=== PATIENT | male | born 1940 | race Caucasian/White ===

== ENCOUNTER 2017-06-25 15:12 | Emergency (ER) | payer OTHER ==
--- NOTE | 2017-06-25 16:45 | RAD REPORT ---
EXAM DESCRIPTION: Lumbar Spine 3 Views CLINICAL HISTORY: Fall, back pain, radiculopathy. COMPARISON: None. FINDINGS: Mild wedge compression deformity affects the L1 vertebral body, age undetermined. Disc thi nning with small endplate osteophytes are noted at L2-3 and L3-4. No spondylolysis or spondylolisthes is. Vascular calcifications are seen. IMPRESSION: Mild L1 wedge compression fracture, age undetermined. Consider followup MR lumbar spine for further assessment of the acuity of this fracture.
--- NOTE | 2017-06-25 17:14 | EDPHYS ---
Physician Documentation [facility] Name: Rigo Lam Age: 77 yrs Sex: Male : 1940 Arrival Date: 06/25/2017 Time: 15:21 Bed 10 Private MD: ED Physician Andrea Connors HPI: 06/25 17:41 This 77 yrs old Male presents to ER via Ambulatory with complaints of Fall snw Injury, Back Pain. 17:41 Details of fall: The patient fell from an upright position, while standing. Onset: The snw symptoms/episode began/occurred suddenly, today. Associated injuries: The patient sustained injury to the low back, pain. Severity of symptoms: At their worst the symptoms were mild, moderate. It is unknown whether or not the patient has had similar symptoms in the past. The patient has been recently seen by a physician: the patient's primary care provider, Dr. Bowman with different complaint(s), and apparently was diagnosed with well exam/follow up. Historical: - Allergies: 16:01 Sulfa (Sulfonamide Antibiotics); hb - Home Meds: 16:01 Actos 30 mg Oral tab 1 tab once daily [Active]; Tylenol #3 Oral [Active]; probenecid hb 500 mg Oral tab [Active]; aspirin 81 mg Oral TbEC 1 tab once daily [Active]; meclizine 25 mg Oral tab 1 tab [Active]; loratadine 10 mg oral TbDL 1 tab once daily [Active]; - PMHx: 16:01 Diabetes - NIDDM; hb - PSHx: 16:01 Appendectomy; Cholecystectomy; hb - Immunization history:: Adult Immunizations up to date. - Social history:: Smoking status: Patient/guardian denies using tobacco. ROS: 17:40 Constitutional: Negative for fever, chills, and weight loss, Eyes: Negative for injury, snw pain, redness, and discharge, ENT: Negative for injury, pain, and discharge, Neck: Negative for injury, pain, and swelling, Cardiovascular: Negative for chest pain, palpitations, and edema, Respiratory: Negative for shortness of breath, cough, wheezing, and pleuritic chest pain, Abdomen/GI: Negative for abdominal pain, nausea, vomiting, diarrhea, and constipation, : Negative for injury, bleeding, discharge, and swelling, MS/Extremity: Negative for injury and deformity, Skin: Negative for injury, rash, and discoloration, Neuro: Negative for headache, weakness, numbness, tingling, and seizure. 17:40 Back: Positive for injury or acute deformity, pain with movement, of the lumbar area. Exam: 17:16 Head/Face: Normocephalic, atraumatic. Eyes: Pupils equal round and reactive to light, snw extra-ocular motions intact. Lids and lashes normal. Conjunctiva and sclera are non-icteric and not injected. Cornea within normal limits. Periorbital areas with no swelling, redness, or edema. ENT: Nares patent. No nasal discharge, no septal abnormalities noted. Tympanic membranes are normal and external auditory canals are clear. Oropharynx with no redness, swelling, or masses, exudates, or evidence of obstruction, uvula midline. Mucous membranes moist. Neck: Trachea midline, no thyromegaly or masses palpated, and no cervical lymphadenopathy. Supple, full range of motion without nuchal rigidity, or vertebral point tenderness. No Meningismus. Chest/axilla: Normal chest wall appearance and motion. Nontender with no deformity. No lesions are appreciated. Cardiovascular: Regular rate and rhythm with a normal S1 and S2. No gallops, murmurs, or rubs. Normal PMI, no JVD. No pulse deficits. Respiratory: Lungs have equal breath sounds bilaterally, clear to auscultation and percussion. No rales, rhonchi or wheezes noted. No increased work of breathing, no retractions or nasal flaring. Abdomen/GI: Soft, non-tender, with normal bowel sounds. No distension or tympany. No guarding or rebound. No evidence of tenderness throughout. Skin: Warm, dry with normal turgor. Normal color with no rashes, no lesions, and no evidence of cellulitis. MS/ Extremity: Pulses equal, no cyanosis. Neurovascular intact. Full, normal range of motion. Neuro: Awake and alert, GCS 15, oriented to person, place, time, and situation. Cranial nerves II-XII grossly intact. Motor strength 5/5 in all extremities. Sensory grossly intact. Cerebellar exam normal. Normal gait. 17:16 Constitutional: The patient appears alert, awake, difficulty with mobility and speech - hx of CP 17:16 Back: pain, that is mild, of the lumbar area, ROM is normal, scoliosis vertebral tenderness, is appreciated at L1, L2 and L3, muscle spasm, is not present. Vital Signs: 16:01 BP 101 / 62; Pulse 95; Resp 20; Temp 97.9; Pulse Ox 97% ; Pain 10/10; hb 17:33 BP 132 / 78; Pulse 89; Resp 17; Pulse Ox 97% on R/A; rk2 MDM: 16:03 Patient medically screened. snw 17:42 Data reviewed: vital signs, nurses notes. Data interpreted: Pulse oximetry: on room air snw is 97 %. Interpretation: normal. Counseling: I had a detailed discussion with the patient and/or guardian regarding: the historical points, exam findings, and any diagnostic results supporting the discharge/admit diagnosis, radiology results, the need for outpatient follow up, to return to the emergency department if symptoms worsen or persist or if there are any questions or concerns that arise at home. Special discussion: Based on the history and exam findings, there is no indication for further emergent testing or inpatient evaluation. I discussed with the patient/guardian the need to see the primary care provider for further evaluation of the symptoms. 06/25 16:04 Order name: Lumbar Spine (3 Views) XRAY; Complete Time: 16:49 snw Administered Medications: No medications were administered Disposition: 06/26 08:54 Co-signature as Attending Physician, Andrea Connors MD I agree with the assessment and arminda plan of care. Disposition: 06/25/17 17:13 Discharged to Home. Impression: Fall on same level, unspecified, Wedge compression fracture of first lumbar vertebra. - Condition is Stable. - Discharge Instructions: Back, Compression Fracture, Fall Prevention and Home Safety. - Prescriptions for Tylenol- Codeine #3 300-30 mg Oral Tablet - take 1 tablet by ORAL route every 6 hours As needed; 15 tablet. - Medication Reconciliation Form, Thank You Letter, Antibiotic Education, Prescription Opioid Use form. - Follow up: Private Physician; When: 2 - 3 days; Reason: Recheck today's complaints, Continuance of care, Re-evaluation by your physician. Follow up: Emergency Department; When: As needed; Reason: Worsening of condition. Signatures: Dispatcher [employer] Andrea Ricci MD MD cha Therrien, Shelly, ADMINISTRATIVE AND PROGRAM SPECIALIST-C ADMINISTRATIVE AND PROGRAM SPECIALIST-Csnw Suma Freitas RN RN Mary Julian RN RN rk2 Corrections: (The following items were deleted from the chart) 06/25 17:35 17:13 06/25/2017 17:13 Discharged to Home. Impression: Fall on same level, unspecified; rk2 Wedge compression fracture of first lumbar vertebra. Condition is Stable. Forms are Medication Reconciliation Form, Thank You Letter, Antibiotic Education, Prescription Opioid Use. Follow up: Private Physician; When: 2 - 3 days; Reason: Recheck today's complaints, Continuance of care, Re-evaluation by your physician. Follow up: Emergency Department; When: As needed; Reason: Worsening of condition. snw
--- NOTE | 2017-06-25 17:14 | ER ---
Nurse's Notes [facility] Name: Rigo Lam Age: 77 yrs Sex: Male : 1940 Arrival Date: 06/25/2017 Time: 15:21 Bed 10 Private MD: Diagnosis: Fall on same level, unspecified;Wedge compression fracture of first lumbar vertebra Presentation: 06/25 15:57 Presenting complaint: Low back pain after mechanical fall from standing this morning. hb reports he fell onto buttocks, denies other injuries. Negative LOC. Transition of care: patient was not received from another setting of care. Onset of symptoms was June 25, 2017. Initial Sepsis Screen: Does the patient meet any 2 criteria? No. Patient's initial sepsis screen is negative. Does the patient have a suspected source of infection? No. Patient's initial sepsis screen is negative. Care prior to arrival: Medication(s) given: Tylenol #3 at 1400. 15:57 Method Of Arrival: Ambulatory 15:57 Acuity: ARMEN 4 hb Triage Assessment: 16:42 General: Appears in no apparent distress. well nourished, Behavior is calm, rk2 cooperative. Pain: Complains of pain in back. Historical: - Allergies: 16:01 Sulfa (Sulfonamide Antibiotics); hb - Home Meds: 16:01 Actos 30 mg Oral tab 1 tab once daily [Active]; Tylenol #3 Oral [Active]; probenecid hb 500 mg Oral tab [Active]; aspirin 81 mg Oral TbEC 1 tab once daily [Active]; meclizine 25 mg Oral tab 1 tab [Active]; loratadine 10 mg oral TbDL 1 tab once daily [Active]; - PMHx: 16:01 Diabetes - NIDDM; hb - PSHx: 16:01 Appendectomy; Cholecystectomy; hb - Immunization history:: Adult Immunizations up to date. - Social history:: Smoking status: Patient/guardian denies using tobacco. Screenin:42 Abuse screen: Denies threats or abuse. Nutritional screening: No deficits noted. rk2 Tuberculosis screening: No symptoms or risk factors identified. Fall Risk Fall in past 12 months (25 points). Assessment: 16:40 Reassessment: Pt. returned from radiology. rk2 16:44 Pain: Complains of pain in back. Neuro: Level of Consciousness is alert, obeys rk2 commands, Oriented to person, place, time, situation. Respiratory: Airway is patent Respiratory effort is even, unlabored, Respiratory pattern is regular, symmetrical. Derm: Skin is pink, warm \T\ dry. Injury Description: No obvious trauma or bruising noted to back. Vital Signs: 16:01 BP 101 / 62; Pulse 95; Resp 20; Temp 97.9; Pulse Ox 97% ; Pain 10/10; hb 17:33 BP 132 / 78; Pulse 89; Resp 17; Pulse Ox 97% on R/A; rk2 ED Course: 15:21 Patient arrived in ED. al2 16:00 Triage completed. hb 16:01 Arm band placed on right wrist. hb 16:03 Ewelina Fuentes FNP-C is [facility]. snw 16:03 Andrea Connors MD is Attending Physician. snw 16:09 Mary Julian, VICKIE is Primary Nurse. rk2 16:25 Patient moved to radiology via wheelchair. 1 16:29 Lumbar Spine (3 Views) XRAY Sent. rk2 16:35 Lumbar Spine (3 Views) XRAY In Process Unspecified. EDMS 16:42 Patient has correct armband on for positive identification. Bed in low position. Call rk2 light in reach. Adult w/ patient. 17:34 No provider procedures requiring assistance completed. Patient did not have IV access rk2 during this emergency room visit. Administered Medications: No medications were administered Outcome: 17:13 Discharge ordered by MD. snw 17:34 Discharged to home via wheelchair. rk2 17:34 Condition: good 17:34 Discharge instructions given to patient, Prescriptions given X 1. 17:35 Patient left the ED. rk2 Signatures: Dispatcher [employer] EDMS Ewelina Fuentes FNP-C CYLINDER HONER-Csnw Carole Connolly 1 Suma Freitas, RN Franci Khoury al2 Mary Julian, VICKIE RN rk2
[2017-06-25 17:39] VITALS: TEMP 97.9; O2SAT 97
[2017-06-25 17:40] VITALS: BP 132/78
== END 2017-06-25 17:35 | disposition home or self-care (01) ==
LOC: ER 15:12
DX: S32.010A Wedge compression fracture of first lumbar vertebra, initial encounter for closed fracture (principal); W18.30XA Fall on same level, unspecified, initial encounter; Y93.9 Activity, unspecified; Y92.9 Unspecified place or not applicable; Z79.82 Long term (current) use of aspirin; Z88.2 Allergy status to sulfonamides; E11.9 Type 2 diabetes mellitus without complications
CPT/HCPCS: 72100; 99283

== ENCOUNTER 2017-10-20 10:44 | Inpatient (IN) | payer OTHER ==
[2017-10-20] MEDS ORDERED: LEVALBUTEROL 1.25 MG/3 ML NEB ONE ×2 (11:37→12:57)
[2017-10-20] MEDS ORDERED: METHYLPREDNISOLONE 125 MG INJ ONE (11:37)
[2017-10-20] MEDS ORDERED: IPRATROPIUM BROM 0.5MG/2.5ML ONE (11:37)
[2017-10-20 11:58] LABS: Absolute Monocytes 0.8 K/uL (0.1-1.3); Basophils % 0.7 % (0-1.3); Eosinophils % 0.9 % (0-4.4); Lymphocytes % 9.3 % (15.3-44.8); MCH 31.7 pg (27.0-35.0); MCV 92.2 fL (80-100); MPV 8.2 fL (7.6-11.3); Monocytes % 7.2 % (3.3-12.3)
[2017-10-20 12:12] LABS: Potassium 4.5 mmol/L (3.5-5.1)
--- NOTE | 2017-10-20 12:18 | RAD REPORT ---
EXAM DESCRIPTION: RAD - Chest Single View - 10/20/2017 12:09 pm CLINICAL HISTORY: Cough;Congestion Chest pain. COMPARISON: Chest Single View dated 06/09/2016; Chest Single View dated 06/06/2016; Chest Single View dated 06/04/2016; Chest Single View dated 06/02/2016 FINDINGS: Portable technique limits examination quality. Emphysematous changes are present with mild increased lung markings in both bases probably representi ng interstitial pneumonitis. The heart is normal in size. No displaced fractures. IMPRESSION: COPD with increased lung markings in both bases, greater on the right, likely representi ng interstitial pneumonia.
--- NOTE | 2017-10-20 14:21 | ER ---
Nurse's Notes [facility] Name: Rigo Lam Age: 77 yrs Sex: Male : 1940 Arrival Date: 10/20/2017 Time: 10:47 Bed 16 Private MD: Reji Bowman Diagnosis: Pneumonia, unspecified organism Presentation: 10/20 11:21 Presenting complaint: cough x 4 days, sinus congestion, worse today with wheezing. sr5 Transition of care: patient was not received from another setting of care. Onset of symptoms was October 16, 2017. Risk Assessment: Do you want to hurt yourself or someone else? Patient reports no desire to harm self or others. Initial Sepsis Screen: Does the patient meet any 2 criteria? No. Patient's initial sepsis screen is negative. Does the patient have a suspected source of infection? No. Patient's initial sepsis screen is negative. Care prior to arrival: None. 11:21 Method Of Arrival: Wheelchair sr5 11:21 Acuity: ARMEN 3 sr5 Triage Assessment: 11:23 General: Appears in no apparent distress. Behavior is calm, cooperative. Pain: Denies sr5 pain. Neuro: Level of Consciousness is awake, alert, obeys commands. Cardiovascular: Patient's skin is warm and dry. Respiratory: Respiratory effort is even, unlabored, Respiratory pattern is regular, symmetrical, Breath sounds with wheezes. Historical: - Allergies: 11:23 Sulfa (Sulfonamide Antibiotics); sr5 - Home Meds: 11:10 Actos 30 mg Oral tab 1 tab once daily [Active]; aspirin 81 mg Oral TbEC 1 tab once rb1 daily [Active]; loratadine 10 mg Oral TbDL 1 tab once daily [Active]; meclizine 25 mg Oral tab 1 tab [Active]; Metformin Oral [Active]; probenecid 500 mg Oral tab [Active]; Tylenol #3 Oral [Active]; - PMHx: 11:23 Diabetes - NIDDM; sr5 11:10 Cerebral Palsy; rb1 - PSHx: 11:23 Appendectomy; Cholecystectomy; sr5 - Immunization history:: Adult Immunizations up to date. - Social history:: Smoking status: Patient/guardian denies using tobacco. - Ebola Screening: : Patient negative for fever greater than or equal to 101.5 degrees Fahrenheit, and additional compatible Ebola Virus Disease symptoms. Screenin:10 Abuse screen: Denies threats or abuse. Nutritional screening: No deficits noted. rb1 Tuberculosis screening: No symptoms or risk factors identified. Fall Risk No fall in past 12 months (0 pts). Secondary diagnosis (15 points) impaired mobility, IV access (20 points). Ambulatory Aid- Crutches/Cane/Walker (15 pts). Gait- Impaired (20 pts.). Mental Status- Oriented to own ability (0 pts). Total Pritchard Fall Scale indicates High Risk Score (45 or more points). Fall prevention measures have been instituted. Side Rails Up X 2 Placed Close to Nursing Station 1:1 Attendant Assigned Frequent Obs/Assessments Occuring Family Present and informed to notify staff if the need to leave the bedside As available patient and family educated on Fall Prevention Program and Strategies. Assessment: 11:10 General: Appears in no apparent distress. comfortable, Behavior is calm, cooperative, rb1 Denies fever. Neuro: Level of Consciousness is awake, alert, obeys commands, Oriented to person, place, time, situation. Cardiovascular: Capillary refill < 3 seconds is brisk in bilateral fingers. Respiratory: Reports cough that is since x 4 days Airway is patent Respiratory effort is even, unlabored, Respiratory pattern is regular, symmetrical, Breath sounds with wheezes bilaterally. Respiratory: Parent/caregiver reports the patient having congestion. GI: No deficits noted. : No deficits noted. EENT: Ear canal hearing aide in right ear. Derm: Skin is pink, warm \\T\\ dry. 12:10 Reassessment: Patient appears in no apparent distress at this time. Patient and/or rb1 family updated on plan of care and expected duration. Pain level reassessed. Patient is alert, oriented x 3, equal unlabored respirations, skin warm/dry/pink. 13:07 Reassessment: Patient appears in no apparent distress at this time. Family at bedside. rb1 Patient states feeling better. 14:00 Reassessment: Patient appears in no apparent distress at this time. Pt. stated, "I feel rb1 better now. I'm ready to go home and eat." Patient states symptoms have improved. 15:00 Reassessment: Patient appears in no apparent distress at this time. Patient and/or rb1 family updated on plan of care and expected duration. Pain level reassessed. Patient is alert, oriented x 3, equal unlabored respirations, skin warm/dry/pink. 16:00 Reassessment: Patient appears in no apparent distress at this time. No changes from rb1 previously documented assessment. pt. is eating while sitting on the side of the bed. Family at bedside. 16:15 Reassessment: Called report to VICKIE Callejas. Information from the SBAR was given. rb1 Informed VICKIE Callejas that the pt. uses a walker at home to ambulate and must have assistance when OOB. All questions asked and answered. Vital Signs: 11:23 BP 143 / 87; Pulse 84; Resp 18; Temp 97.8; Pulse Ox 98% on R/A; sr5 11:48 BP 128 / 76; Pulse 81; Resp 18; Pulse Ox 100% on 10% Nebulizer Mask; dh3 12:30 BP 125 / 64; Pulse 105; Resp 19; Pulse Ox 97% on R/A; rb1 13:30 BP 112 / 54; Pulse 115; Pulse Ox 98% on R/A; rb1 14:12 BP 111 / 65; Pulse 117; Resp 20; Temp 97.4(TE); Pulse Ox 97% on R/A; rb1 15:00 BP 113 / 46; Pulse 115; Resp 19; Pulse Ox 96% on R/A; rb1 16:00 BP 121 / 66; Pulse 113; Resp 20; Pulse Ox 96% on R/A; rb1 ED Course: 10:47 Patient arrived in ED. sb2 10:48 Reji Bowman MD is Private Physician. sb2 11:09 Molly Chopra FNP-C is [facility]. kb 11:09 Marlo Gonzalez MD is Attending Physician. kb 11:09 Madina Mora, VICKIE is Primary Nurse. rb1 11:10 Patient has correct armband on for positive identification. Bed in low position. Call rb1 light in reach. Side rails up X 1. Pulse ox on. NIBP on. Warm blanket given. 11:23 Triage completed. sr5 11:23 Arm band placed on. sr5 11:40 Initial lab(s) drawn, by oh, sent to lab. First set of blood cultures drawn by me. 3 Inserted saline lock: 20 gauge in left antecubital area, using aseptic technique. Blood collected. 12:02 Second set of blood cultures drawn by me, by venipuncture 23G to right ac. dh3 12:09 Chest Single View XRAY In Process Unspecified. EDMS 12:17 X-ray completed. Portable x-ray completed in exam room. Patient tolerated procedure la2 well. 14:19 Reji Bowman MD is Hospitalizing Provider. kb 16:30 No provider procedures requiring assistance completed. Patient admitted, IV remains in rb1 place. Administered Medications: 11:32 Drug: Xopenex (3) 1.25 mg Route: Inhalation; rb1 11:32 Drug: AtroVENT Aerosol 0.5 mg Route: Inhalation; rb1 11:38 Drug: SOLU-Medrol 125 mg Route: IVP; Site: left antecubital; rb1 11:50 Follow up: Response: No adverse reaction rb1 12:53 Drug: Xopenex (3) 1.25 mg Route: Inhalation; rb1 14:27 Drug: LevaQUIN 500 mg Volume: 100 ml; Route: IVPB; Infused Over: 60 mins; Site: left rb1 antecubital; 15:30 Follow up: Response: No adverse reaction; IV Status: Completed infusion rb1 Outcome: 14:20 Decision to Hospitalize by Provider. kb 16:30 Patient left the ED. rb1 16:30 Admitted to Tele accompanied by tech, family with patient, via wheelchair, room 403, rb1 with chart, Report called to VICKIE Summers 16:30 Condition: stable 16:30 Instructed on the need for admit. Signatures: Dispatcher [employer] EDMS Molly Chopra, CLEANER AND PRESSER-C CLEANER AND PRESSER-Madina Medellin, RN RN rb1 Carrington Dewitt RN RN sr5 Krys Hernandez 3 Lisa Botello ri2 Amy White 2 Corrections: (The following items were deleted from the chart) 16:48 16:44 Patient left the ED. rb1 rb1 17:07 16:15 Reassessment: Called report to VICKIE Summers. Information from the SBAR was given. rb1 All questions asked and answered. rb1
--- NOTE | 2017-10-20 14:21 | EDPHYS ---
Physician Documentation [facility] Name: Rigo Lam Age: 77 yrs Sex: Male : 1940 Arrival Date: 10/20/2017 Time: 10:47 Bed 16 Private MD: Reji Bowman ED Physician Marlo Gonzalez HPI: 10/20 14:27 This 77 yrs old Male presents to ER via Wheelchair with complaints of Chest kb Congestion, Cough. 14:27 The patient or guardian reports cough, that is intermittent, described as moderate, kb with no sputum, difficulty breathing. Onset: The symptoms/episode began/occurred 4 day(s) ago. Severity of symptoms: At their worst the symptoms were moderate, in the emergency department the symptoms are unchanged. Modifying factors: The symptoms are alleviated by nothing, the symptoms are aggravated by nothing. Associated signs and symptoms: The patient has no apparent associated signs or symptoms. The patient has experienced similar episodes in the past, a few times. The patient has not recently seen a physician. Pt reports cough and subjective fever for 4 days. Woke up this morning with shortness of breath and wheezing. . Historical: - Allergies: 11:23 Sulfa (Sulfonamide Antibiotics); sr5 - Home Meds: 11:10 Actos 30 mg Oral tab 1 tab once daily [Active]; aspirin 81 mg Oral TbEC 1 tab once rb1 daily [Active]; loratadine 10 mg Oral TbDL 1 tab once daily [Active]; meclizine 25 mg Oral tab 1 tab [Active]; Metformin Oral [Active]; probenecid 500 mg Oral tab [Active]; Tylenol #3 Oral [Active]; - PMHx: 11:23 Diabetes - NIDDM; sr5 11:10 Cerebral Palsy; rb1 - PSHx: 11:23 Appendectomy; Cholecystectomy; sr5 - Immunization history:: Adult Immunizations up to date. - Social history:: Smoking status: Patient/guardian denies using tobacco. - Ebola Screening: : Patient negative for fever greater than or equal to 101.5 degrees Fahrenheit, and additional compatible Ebola Virus Disease symptoms. ROS: 14:26 Cardiovascular: Negative for chest pain, palpitations, and edema, Abdomen/GI: Negative kb for abdominal pain, nausea, vomiting, diarrhea, and constipation, Back: Negative for injury and pain, : Negative for injury, bleeding, discharge, and swelling, MS/Extremity: Negative for injury and deformity, Skin: Negative for injury, rash, and discoloration, Neuro: Negative for headache, weakness, numbness, tingling, and seizure. 14:26 Constitutional: Positive for fever, Negative for body aches, chills, fatigue, malaise, poor PO intake, weight loss. 14:26 Respiratory: Positive for cough, with no reported sputum, shortness of breath, wheezing, Negative for dyspnea on exertion, hemoptysis, orthopnea, pleurisy. Exam: 14:24 Constitutional: This is a well developed, well nourished patient who is awake, alert, kb and in no acute distress. Head/Face: Normocephalic, atraumatic. Chest/axilla: Normal chest wall appearance and motion. Nontender with no deformity. No lesions are appreciated. Cardiovascular: Regular rate and rhythm with a normal S1 and S2. No gallops, murmurs, or rubs. Normal PMI, no JVD. No pulse deficits. Abdomen/GI: Soft, non-tender, with normal bowel sounds. No distension or tympany. No guarding or rebound. No evidence of tenderness throughout. Skin: Warm, dry with normal turgor. Normal color with no rashes, no lesions, and no evidence of cellulitis. MS/ Extremity: Pulses equal, no cyanosis. Neurovascular intact. Full, normal range of motion. Neuro: Awake and alert, GCS 15, oriented to person, place, time, and situation. Cranial nerves II-XII grossly intact. Motor strength 5/5 in all extremities. Sensory grossly intact. Cerebellar exam normal. Normal gait. 14:24 Respiratory: mild respiratory distress is noted, Respirations: labored breathing, that is mild, Breath sounds: wheezing: expiratory that is moderate, is heard diffusely. Vital Signs: 11:23 BP 143 / 87; Pulse 84; Resp 18; Temp 97.8; Pulse Ox 98% on R/A; sr5 11:48 BP 128 / 76; Pulse 81; Resp 18; Pulse Ox 100% on 10% Nebulizer Mask; dh3 12:30 BP 125 / 64; Pulse 105; Resp 19; Pulse Ox 97% on R/A; rb1 13:30 BP 112 / 54; Pulse 115; Pulse Ox 98% on R/A; rb1 14:12 BP 111 / 65; Pulse 117; Resp 20; Temp 97.4(TE); Pulse Ox 97% on R/A; rb1 15:00 BP 113 / 46; Pulse 115; Resp 19; Pulse Ox 96% on R/A; rb1 16:00 BP 121 / 66; Pulse 113; Resp 20; Pulse Ox 96% on R/A; rb1 MDM: 11:09 Patient medically screened. kb 14:17 Data reviewed: vital signs, nurses notes. Data interpreted: Pulse oximetry: on room air kb is 95 %. Interpretation: normal. Counseling: I had a detailed discussion with the patient and/or guardian regarding: the historical points, exam findings, and any diagnostic results supporting the discharge/admit diagnosis, lab results, radiology results, the need for further work-up and treatment in the hospital. Physician consultation: Reji Bowman MD was contacted at 14:18, regarding admission, to the telemetry unit. patient's condition, and will see patient in inpatient room. Admission orders: after a detailed discussion of the patient's condition and case, the admit orders are written by me. 14:18 ED course: Wheezing decreased after first round of neb treatments, gave second round to kb further improve. Wheezing has returned with increased work of breathing. Will admit pt. . 10/20 11:22 Order name: CBC with Diff; Complete Time: 12:01 kb 10/20 11:22 Order name: Basic Metabolic Panel; Complete Time: 12:15 kb 10/20 11:22 Order name: Blood Culture Adult (2) kb 10/20 11:22 Order name: Lactate; Complete Time: 12:16 kb 10/20 11:22 Order name: Procalcitonin; Complete Time: 12:27 kb 10/20 11:24 Order name: Chest Single View XRAY; Complete Time: 12:19 kb 10/20 11:22 Order name: IV Start; Complete Time: 11:44 kb 10/20 14:25 Order name: Diet Ada 1800 Niraj; Complete Time: 14:25 eb Administered Medications: 11:32 Drug: Xopenex (3) 1.25 mg Route: Inhalation; rb1 11:32 Drug: AtroVENT Aerosol 0.5 mg Route: Inhalation; rb1 11:38 Drug: SOLU-Medrol 125 mg Route: IVP; Site: left antecubital; rb1 11:50 Follow up: Response: No adverse reaction rb1 12:53 Drug: Xopenex (3) 1.25 mg Route: Inhalation; rb1 14:27 Drug: LevaQUIN 500 mg Volume: 100 ml; Route: IVPB; Infused Over: 60 mins; Site: left rb1 antecubital; 15:30 Follow up: Response: No adverse reaction; IV Status: Completed infusion rb1 Disposition: 18:24 Co-signature as Attending Physician, Marlo Gonzalez MD. rn Disposition: 10/20/17 14:20 Hospitalization ordered by Reji Bowman for Inpatient Admission. Preliminary diagnosis is Pneumonia, unspecified organism. - Bed requested for Telemetry/MedSurg (Inpatient). - Status is Inpatient Admission. rb1 - Condition is Stable. - Problem is new. - Symptoms are unchanged. UTI on Admission? No Signatures: Dispatcher [employer] EDMS Molly Chopra, FLAT CLOTHIER-C FLAT CLOTHIER-Ckb Marlo Gonzalez MD MD rn Barber, Rebecca RN RN rb1 [facility] sr5 Concepción Parker Corrections: (The following items were deleted from the chart) 14:41 14:20 Hospitalization Ordered by Reji Bowman MD for Inpatient Admission. Preliminary eb diagnosis is Pneumonia, unspecified organism. Bed requested for Telemetry/MedSurg (Inpatient). Status is Inpatient Admission. Condition is Stable. Problem is new. Symptoms are unchanged. UTI on Admission? No. kb 14:53 14:41 10/20/2017 14:20 Hospitalization Ordered by Reji Bomwan MD for Inpatient eb Admission. Preliminary diagnosis is Pneumonia, unspecified organism. Bed requested for Telemetry/MedSurg (Inpatient). Status is Inpatient Admission. Condition is Stable. Problem is new. Symptoms are unchanged. UTI on Admission? No. eb 16:44 14:53 10/20/2017 14:20 Hospitalization Ordered by Reji Bowman MD for Inpatient rb1 Admission. Preliminary diagnosis is Pneumonia, unspecified organism. Bed requested for Telemetry/MedSurg (Inpatient). Status is Inpatient Admission. Condition is Stable. Problem is new. Symptoms are unchanged. UTI on Admission? No. eb
[2017-10-20] MEDS ORDERED: Levofloxacin500mg IV 500 MG/100 ML BAG IV ONE (14:29)
[2017-10-20] MEDS ORDERED: D50W 25 GM/50 ML SYRINGE IV PRN (16:20)
[2017-10-20] MEDS ORDERED: GLUCAGON 1 MG/VIAL IM PRN (16:20)
[2017-10-20] MEDS: ALBUTEROL 2.5 MG/3 ML NEB SOL NEB PRN (17:00)
[2017-10-20] MEDS: IPRATROPIUM BROM 0.5MG/2.5ML NEB PRN (17:00)
[2017-10-20] MEDS: METHYLPREDNISOLONE 40 MG INJ IV SCH (17:27)
[2017-10-20] MEDS: INSULIN -REGULAR HUMAN 50 UNIT/0.5 ML ML SQ SCH ×2 (17:27→21:55)
[2017-10-20 20:26] LABS: Urine Appearance CLEAR; Urine Bilirubin NEGATIVE (NEG); Urine Blood NEGATIVE (NEG); Urine Color YELLOW; Urine Glucose 3+ (NEG); Urine Protein NEGATIVE (NEG); Urine Specific Gravity 1.025 (1.005-1.030); Urine Urobilinogen 0.2 mg/dL (0.2-1.0)
[2017-10-20 20:31] LABS: Urine Microscopic Reflex NO UMIC
[2017-10-20] MEDS: Levofloxacin 750mg IV 750 MG/150 ML BAG IV SCH (22:59)
[2017-10-21] MEDS: METHYLPREDNISOLONE 40 MG INJ IV SCH ×3 (00:58→17:41)
[2017-10-21] MEDS: ACETAMINOPHEN 500 MG TAB PO PRN (03:06)
[2017-10-21 06:54] LABS: Potassium 4.7 mmol/L (3.5-5.1)
[2017-10-21 07:07] LABS: Absolute Lymphocytes (CBC) 0.5 K/uL (0.7-4.9); Absolute Monocytes 0.3 K/uL (0.1-1.3); Absolute Neutrophil 11.6 K/uL (1.8-8.0); Basophils % 0.1 % (0-1.3); Hematocrit 45.2 % (39.6-49.0); Lymphocytes % 3.9 % (15.3-44.8); MCH 31.7 pg (27.0-35.0); MCV 92.9 fL (80-100); MPV 8.4 fL (7.6-11.3); Monocytes % 2.2 % (3.3-12.3); RBC Red Blood Cell Count 4.87 M/uL (4.33-5.43)
[2017-10-21] MEDS: INSULIN -REGULAR HUMAN 50 UNIT/0.5 ML ML SQ SCH ×4 (07:30→20:44)
[2017-10-21] MEDS ORDERED: SENOSIDES 8.6 MG TAB PO PRN (07:57)
[2017-10-21 08:49] LABS: Blood Morphology Comment NOT SEEN (NOT SEEN); Platelet Estimate ADEQ; Urine White Blood Cell Casts OK
[2017-10-21] MEDS: ALBUTEROL 2.5 MG/3 ML NEB SOL NEB PRN ×3 (08:55→17:21)
[2017-10-21] MEDS: IPRATROPIUM BROM 0.5MG/2.5ML NEB PRN ×3 (08:55→17:21)
[2017-10-21] MEDS ORDERED: ASPIRIN ENTERIC COATED 81 MG PO SCH (09:00)
[2017-10-21] MEDS ORDERED: [UNRECOGNIZED DRUG - OTHER] PO SCH (09:00)
[2017-10-21] MEDS ORDERED: [UNRECOGNIZED DRUG - OTHER] PO SCH (09:00)
[2017-10-21] MEDS ORDERED: MULTIVIT MIN PO SCH (09:00)
[2017-10-21] MEDS ORDERED: FOLIC AC PO SCH (09:00)
[2017-10-21] MEDS ORDERED: ACIDOPHILUS PO SCH (09:00)
[2017-10-21] MEDS ORDERED: IRON FUM PO SCH (09:00)
[2017-10-21] MEDS ORDERED: MECLIZINE HCL 25 MG PO SCH (09:00)
[2017-10-21] MEDS ORDERED: HOME MED 1 EA UNK (Cyanocobalamin (Vitamin B-12) [Vitamin B-12] 1 TAB) PO SCH (09:00)
[2017-10-21] MEDS: CYANOCOBALAMIN 1,000 MCG TAB PO SCH (09:33)
[2017-10-21] MEDS: LORATADINE 10 MG TAB PO SCH (09:33)
[2017-10-21] MEDS: LACTOBACILLUS/ACIDOPHILUS TAB PO SCH (09:34)
[2017-10-21] MEDS: ENOXAPARIN 30 MG/0.3 ML SQ SCH (09:34)
[2017-10-21] MEDS: ASPIRIN EC 81 MG TAB PO SCH (09:34)
[2017-10-21] MEDS: MECLIZINE HCL 12.5 MG TAB PO SCH (09:34)
--- NOTE | 2017-10-21 21:21 | HP ---
Date of Admission: 10/20/2017 Chief Complaint: Cough, congestion and shortness of breath. History Of Present Illness: This is a 77-year-old male patient, who lives at home, came into Emergen cy Room with 3- to 4-days' history of cough, chest congestion, and not able to cough up any mucus, as sociated with some wheezing and shortness of breath. He came into emergency room with worsening of s ymptoms. After he was evaluated in the ER, he was admitted to the hospital with pneumonia and acute exacerbation of chronic obstructive pulmonary disease. He denies any vomiting or diarrhea. Allergies: SULFA. Medications: List reviewed. Review of Systems: Respiratory as mentioned above. All other systems reviewed and negative. Family History: Not pertinent. Social History: Prior history of smoking, not at present time. He quit smoking approximately 7 year s ago. Use of alcohol very rarely. Past Surgical History: Cholecystectomy, appendectomy, tonsillectomy, and neck surgery. Past Medical History: Significant for COPD, type 2 diabetes mellitus, cerebral palsy, allergic rhini tis, and vertigo. Physical Examination: Vital Signs: Temperature 98.5, pulse 121, respiratory rate 22, blood pressure 131/65, oxygen saturat ion 95%. Height 5 feet and 8 inches, weight 142 pounds. General: Awake, alert, oriented, not in distress. HEENT: Head atraumatic, normocephalic. Conjunctivae nonerythematous. Sclerae white. Mouth, no thr ush or edema noted. Ears/Nose, no mass, lesion, discharge noted. Neck: Supple. No JVD, lymph nodes, bruit, thyromegaly noted. Lungs: Presence of rales noted in lower lung grullon. Not using accessory muscles of respiration, brayan stafford was noted to have frequent coughing while I was in the room with him. Heart: Normal heart sounds, no murmur or gallop. Abdomen: Soft, bowel sounds normal. No guarding, rigidity, tenderness, mass, hepatosplenomegaly, dis tention, or bruit noted. Extremities: No leg edema. No calf tenderness. Skin: No rash, ulcer, cellulitis. Lymphatics: No lymph node enlargement in neck, supraclavicular, infraclavicular region. Neuro: No focal neurological deficit. Chest: Unremarkable. External Genitalia: Deferred. Rectal: Deferred. Laboratory Data: Yesterday, white count 11, hemoglobin 16.2, platelets 188. This morning white coun t 12.4, hemoglobin 15.5, platelets 199. Yesterday, sodium 140, potassium 4.5, chloride 104, bicarb 3 0, BUN 20, creatinine 1.30, glucose 142. This morning sodium 141, potassium 4.7, chloride 108, bicar b 23, BUN 26, creatinine 1.50, glucose 116. ProBNP 2554. Procalcitonin less than 0.05. Lactic aci d 1.6. Urinalysis negative, except 2+ ketones and 3+ glucose. Chest x-ray shows bilateral interstit ial infiltrate. Impression: 1.Pneumonia. 2.Acute exacerbation of chronic obstructive pulmonary disease. 3.Type 2 diabetes mellitus. 4.Volume depletion. 5.Allergic rhinitis. 6.Cerebral palsy. Plan: Admit the patient to hospital for further evaluation and management of this problem. The sammy ent is appropriate for inpatient, and is expected to spend two midnights in hospital. We will contin ue his home medications per order for diabetes. We will manage it with sliding scale insulin, and at appropriate time, we will start his oral hypoglycemic medications. We will also go ahead and contin ue oxygen nebulizer treatment, IV steroid, and antibiotics per order. Consult Physical Therapy. DVT prophylaxis will be given using Lovenox per order, and I will see him tomorrow for followup. Details of plan of treatment discussed with the promise bocanegra. JOHN/GARRY Voice ID: [id number]
[2017-10-22] MEDS: METHYLPREDNISOLONE 40 MG INJ IV SCH ×3 (00:20→18:05)
[2017-10-22] MEDS: MULTIVIT W/ MINERAL TAB PO SCH (08:22)
[2017-10-22] MEDS: LACTOBACILLUS/ACIDOPHILUS TAB PO SCH (08:22)
[2017-10-22] MEDS: ENOXAPARIN 30 MG/0.3 ML SQ SCH (08:22)
[2017-10-22] MEDS: ASPIRIN EC 81 MG TAB PO SCH (08:23)
[2017-10-22] MEDS: MECLIZINE HCL 12.5 MG TAB PO SCH (08:23)
[2017-10-22] MEDS: CYANOCOBALAMIN 1,000 MCG TAB PO SCH (08:23)
[2017-10-22] MEDS: LORATADINE 10 MG TAB PO SCH (08:23)
[2017-10-22] MEDS: INSULIN -REGULAR HUMAN 50 UNIT/0.5 ML ML SQ SCH ×4 (08:24→21:54)
[2017-10-22] MEDS: ALBUTEROL 2.5 MG/3 ML NEB SOL NEB PRN (17:23)
[2017-10-22] MEDS: IPRATROPIUM BROM 0.5MG/2.5ML NEB PRN ×2 (17:23→19:35)
[2017-10-22] MEDS: ARFORMOTEROL TARTRATE 15 MCG/2 ML VIAL.NEB NEB SCH (19:35)
[2017-10-22] MEDS: Levofloxacin 750mg IV 750 MG/150 ML BAG IV SCH (21:54)
[2017-10-23] MEDS: METHYLPREDNISOLONE 40 MG INJ IV SCH ×3 (00:02→18:24)
--- NOTE | 2017-10-23 00:12 | PN ---
Date of Progress Note: 10/22/2017 Subjective: The patient was seen this morning for followup. He was lying in bed, not in distress. Denies any specific complaints this morning. Still has some cough, congestion, wheezing. Objective: Vital Signs: Reviewed. HEENT: Unremarkable. Lungs: Bilateral scattered wheezing noted, unchanged from yesterday. Not using any accessory muscle s of respiration. Heart: Sounds normal. Abdomen: Soft. Bowel sounds normal. No guarding, rigidity, tenderness, or distention. Extremities: No leg edema. Impression: 1.Pneumonia. 2.Acute exacerbation of chronic obstructive pulmonary disease. 3.Diabetes mellitus, type 2. Plan: We will continue current medication. Continue oxygen nebulizer treatment, steroid antibiotics , and Brovana nebulizer treatment. I will see him tomorrow for followup. Physical therapy to help a mbulate the patient. JOHN/GARRY Voice ID: [id number] Report ID: [id number]
[2017-10-23] MEDS: ACETAMINOPHEN 500 MG TAB PO PRN (02:50)
[2017-10-23] MEDS: ARFORMOTEROL TARTRATE 15 MCG/2 ML VIAL.NEB NEB SCH ×2 (07:47→19:48)
[2017-10-23] MEDS: LORATADINE 10 MG TAB PO SCH (09:14)
[2017-10-23] MEDS: ENOXAPARIN 30 MG/0.3 ML SQ SCH (09:14)
[2017-10-23] MEDS: MECLIZINE HCL 12.5 MG TAB PO SCH (09:14)
[2017-10-23] MEDS: ASPIRIN EC 81 MG TAB PO SCH (09:14)
[2017-10-23] MEDS: LACTOBACILLUS/ACIDOPHILUS TAB PO SCH (09:14)
[2017-10-23] MEDS: MULTIVIT W/ MINERAL TAB PO SCH (09:14)
[2017-10-23] MEDS: CYANOCOBALAMIN 1,000 MCG TAB PO SCH (09:14)
[2017-10-23] MEDS: INSULIN -REGULAR HUMAN 50 UNIT/0.5 ML ML SQ SCH ×4 (09:15→21:32)
--- NOTE | 2017-10-23 12:40 | RAD REPORT ---
EXAM DESCRIPTION: RAD - Chest Pa And Lat (2 Views) - 10/23/2017 12:32 pm CLINICAL HISTORY: pneumonia Chest pain. COMPARISON: Chest Single View dated 10/20/2017; Chest Single View dated 06/09/2016; Chest Single View d ated 06/06/2016; Chest Single View dated 06/04/2016 FINDINGS: Emphysematous changes are present throughout the lungs with ill-defined opacities in left lung base likely representing mild residual pneumonia. The right lung base appears better aerated irma n on the comparative study. The heart is normal in size. No displaced fractures.
[2017-10-23 13:11] LABS: Absolute Lymphocytes (CBC) 0.6 K/uL (0.7-4.9); Absolute Monocytes 0.6 K/uL (0.1-1.3); Absolute Neutrophil 16.4 K/uL (1.8-8.0); Basophils % 0.1 % (0-1.3); Hematocrit 50.3 % (39.6-49.0); Lymphocytes % 3.4 % (15.3-44.8); MCH 31.4 pg (27.0-35.0); MCV 93.7 fL (80-100); MPV 8.2 fL (7.6-11.3); Monocytes % 3.2 % (3.3-12.3); RBC Red Blood Cell Count 5.36 M/uL (4.33-5.43)
[2017-10-23 13:16] LABS: Albumin 3.3 g/dL (3.4-5.0); Bilirubin Total 0.7 mg/dL (0.2-1.0); Potassium 4.8 mmol/L (3.5-5.1); Protein, Total 7.3 g/dL (6.4-8.2)
[2017-10-23 13:34] LABS: Blood Morphology Comment NOT SEEN (NOT SEEN); Platelet Estimate ADEQ; Urine White Blood Cell Casts OK
[2017-10-23] MEDS ORDERED: NA CHLORIDE 0.9% 1,000 ML IV SCH (14:00)
--- NOTE | 2017-10-24 | PN ---
Date of Progress Note: 10/23/2017 Subjective: Patient was seen this morning for followup. No new complaints or problems reported by nellie myles. Lying in bed, not in any distress. Objective: Vital Signs: Reviewed. HEENT: Unremarkable. Lungs: Presence of bilateral wheezing. Heart: Sounds normal. Abdomen: Soft. Bowel sounds normal. No guarding, rigidity, tenderness, or distention. Extremities: No leg edema. Impression: 1.Pneumonia. 2.Acute exacerbation of chronic obstructive pulmonary disease. 3.Type 2 diabetes mellitus. Plan: We will continue current medication, antibiotic, oxygen, steroid, and nebulizer treatment. Ph ysical therapy to continue to help the patient with ambulation. Continue current diabetes management . We will get a chest x-ray done today and I will see him tomorrow for followup. The patient's seps is protocol was followed today as nurse reported me as his vital signs triggered sepsis protocol. La ctic acid level was elevated. IV fluid was ordered. I will see him tomorrow for followup. JOHN/MODL Voice ID: [id number] Report ID: [id number]
[2017-10-24] MEDS: METHYLPREDNISOLONE 40 MG INJ IV SCH ×3 (00:18→17:50)
[2017-10-24] MEDS: ARFORMOTEROL TARTRATE 15 MCG/2 ML VIAL.NEB NEB SCH ×2 (07:12→20:15)
[2017-10-24] MEDS: INSULIN -REGULAR HUMAN 50 UNIT/0.5 ML ML SQ SCH ×4 (08:29→22:35)
[2017-10-24] MEDS: ENOXAPARIN 30 MG/0.3 ML SQ SCH (09:56)
[2017-10-24] MEDS: MECLIZINE HCL 12.5 MG TAB PO SCH (09:57)
[2017-10-24] MEDS: LORATADINE 10 MG TAB PO SCH (09:57)
[2017-10-24] MEDS: MULTIVIT W/ MINERAL TAB PO SCH (09:57)
[2017-10-24] MEDS: ASPIRIN EC 81 MG TAB PO SCH (09:57)
[2017-10-24] MEDS: LACTOBACILLUS/ACIDOPHILUS TAB PO SCH (09:58)
[2017-10-24] MEDS: CYANOCOBALAMIN 1,000 MCG TAB PO SCH (09:58)
[2017-10-24] MEDS: AMPICILLIN/SULBACT 3 GM in NA CHLORIDE 0.9% 100 ML IVPB SCH ×2 (14:19→17:00)
[2017-10-24] MEDS: Levofloxacin 750mg IV 750 MG/150 ML BAG IV SCH (22:35)
--- NOTE | 2017-10-24 23:20 | PN ---
Date of Progress Note: 10/24/2017 Subjective: The patient was seen this morning for followup, lying in bed, not in any distress. Eveline rodriguez has cough, congestion, and wheezing. Objective: Vital Signs: Reviewed. HEENT: Examination unremarkable. Lungs: Bilateral good equal entry. Presence of wheezing noted in both lung grullon. Heart: Sounds normal. Abdomen: Soft. Bowel sounds normal. No guarding, rigidity, tenderness, or distention. Extremities: No leg edema. Impression: 1.Pneumonia. 2.Acute exacerbation of chronic obstructive pulmonary disease. 3.Type 2 diabetes mellitus. Plan: We will continue current medications, nebulizer treatment, oxygen, and IV steroid. The patien t is on IV Levaquin, and we will add Unasyn. Depending on his condition tomorrow, we will decide if we can discharge him to go home tomorrow or not. JOHN/MODL Voice ID: [id number] Report ID: [id number]
[2017-10-25] MEDS: AMPICILLIN/SULBACT 3 GM in NA CHLORIDE 0.9% 100 ML IVPB SCH ×2 (01:33→08:39)
[2017-10-25] MEDS: METHYLPREDNISOLONE 40 MG INJ IV SCH ×2 (01:33→08:39)
[2017-10-25 06:43] VITALS: BMI 21.4
[2017-10-25] MEDS: ARFORMOTEROL TARTRATE 15 MCG/2 ML VIAL.NEB NEB SCH (07:54)
[2017-10-25] MEDS: INSULIN -REGULAR HUMAN 50 UNIT/0.5 ML ML SQ SCH (08:38)
[2017-10-25] MEDS: LACTOBACILLUS/ACIDOPHILUS TAB PO SCH (08:39)
[2017-10-25] MEDS: ENOXAPARIN 30 MG/0.3 ML SQ SCH (08:39)
[2017-10-25] MEDS: ASPIRIN EC 81 MG TAB PO SCH (08:40)
[2017-10-25] MEDS: LORATADINE 10 MG TAB PO SCH (08:40)
[2017-10-25] MEDS: MULTIVIT W/ MINERAL TAB PO SCH (08:40)
[2017-10-25] MEDS: CYANOCOBALAMIN 1,000 MCG TAB PO SCH (08:40)
[2017-10-25] MEDS: MECLIZINE HCL 12.5 MG TAB PO SCH (08:40)
[2017-10-25 09:55] VITALS: BP 121/72; TEMP 97
[2017-10-25 11:55] VITALS: O2SAT 99
--- NOTE | 2017-10-26 17:36 | DS ---
Date of Discharge: 10/25/2017 The patient was seen this morning for followup, lying in bed, not in distress, feeling much better. Objective: Vital Signs: Reviewed. HEENT: Unremarkable. Lungs: Clear to auscultation. Heart: Sounds normal. Abdomen: Soft. Bowel sounds normal. No guarding, rigidity, tenderness, distention. Extremities: No leg edema. Discharge Medications And Instructions: 1.Prednisone 10 mg, the patient to take 2 tablets by mouth daily for 2 days, then 1 tablet by mouth daily for 2 days, then half tablet by mouth daily for 2 days, then stop, take it with food and nurse to call this prescription into patient's pharmacy. 2.Augmentin 875 mg twice a day for 1 week, take it with food. 3.Follow up at my office in 1 week. 4.Continue all prior home medications. Hospital Course: A 77-year-old male patient admitted to the hospital with cough, congestion, shortne ss of breath. Please see dictated H and P for more information. After the patient was evaluated in the ER, he was admitted to the hospital with pneumonia and acute exacerbation of COPD. Please see di jose H and P for more information. The patient was started initially on Levaquin, oxygen nebulizer treatment, steroids, and home medications were continued. His condition did not improve quite as we ll as expected with this treatment so as of yesterday we added Unasyn. He has responded very well 2 days just within 24 hours after we started Unasyn, his condition improved significantly. Today, his lung examination was clear and the patient was feeling much better. He is medically stable for disch arge. Labs and investigation done during this hospitalization. Chest x-ray showing bilateral inters titial infiltrates. Initial white count 11.1, hemoglobin 16.2, platelets 188. Sodium 140, potassium 4.5, chloride 104, bicarb 30, BUN 20, creatinine 1.30, glucose 142. Last labs on 10/23/2017; sodium 139, potassium 4.8, chloride 104, bicarb 29, BUN 36, creatinine 1.50. White count 17.6, hemoglobin 16.8, platelets 206. This elevated white count was due to IV steroid. Final Diagnoses: 1.Pneumonia. 2.Acute exacerbation of chronic obstructive pulmonary disease. 3.Type 2 diabetes mellitus. 4.Volume depletion. 5.Allergic rhinitis. 6.Cerebral palsy. JOHN/MODL Voice ID: [id number] Report ID: [id number]
== END 2017-10-25 10:50 | disposition home or self-care (01) | DRG 190 ==
LOC: ER 10:44 → ERHOLD 14:21 → 4TH 16:17
PROVIDERS: ADMIT Internal Medicine; ATTEND Internal Medicine
DX: J44.0 Chronic obstructive pulmonary disease with (acute) lower respiratory infection (principal); J18.9 Pneumonia, unspecified organism; J44.1 Chronic obstructive pulmonary disease with (acute) exacerbation; E11.9 Type 2 diabetes mellitus without complications; E86.9 Volume depletion, unspecified; J30.9 Allergic rhinitis, unspecified; G80.9 Cerebral palsy, unspecified; Z88.2 Allergy status to sulfonamides
CPT/HCPCS: 36415; 71045; 71046; 80048; 80053; 81003; 82962; 83605; 83880; 84145; 85025; 87040; 94640; 94760; 96365; 96375; 97163; 99285; J0295; J1650; J2920; J2930; J7030; J7605

== ENCOUNTER 2018-04-02 14:53 | Emergency (ER) | payer OTHER ==
[2018-04-02] MEDS ORDERED: LIDOCAINE 2% MPF 5 ML VIAL ONE (15:58)
--- NOTE | 2018-04-02 16:33 | ER ---
Nurse's Notes [facility] Name: Rigo Lam Age: 78 yrs Sex: Male : 1940 Arrival Date: 04/02/2018 Time: 15:01 Bed 28 Private MD: Reji Bowman Diagnosis: Sebaceous cyst-infected Presentation: 04/02 15:13 Presenting complaint: Cyst on shoulder ruptured, family concerned it is infected. hb Transition of care: patient was not received from another setting of care. Onset of symptoms was April 02, 2018. Risk Assessment: Do you want to hurt yourself or someone else? Patient reports no desire to harm self or others. Care prior to arrival: None. 15:13 Method Of Arrival: Ambulatory hb 15:13 Acuity: ARMEN 3 hb 15:54 Initial Sepsis Screen: Does the patient meet any 2 criteria? No. Patient's initial ca1 sepsis screen is negative. Does the patient have a suspected source of infection? Yes: Skin breakdown/wound. Historical: - Allergies: 15:13 Sulfa (Sulfonamide Antibiotics); hb - Home Meds: 15:13 Actos 30 mg Oral tab 1 tab once daily [Active]; aspirin 81 mg Oral TbEC 1 tab once hb daily [Active]; loratadine 10 mg Oral TbDL 1 tab once daily [Active]; meclizine 25 mg Oral tab 1 tab [Active]; Metformin Oral [Active]; probenecid 500 mg Oral tab [Active]; Tylenol #3 Oral [Active]; - PMHx: 15:13 Cerebral Palsy; Diabetes - NIDDM; hb - PSHx: 15:13 Appendectomy; Cholecystectomy; hb - Immunization history:: Flu vaccine is not up to date. - Social history:: Smoking status: Patient/guardian denies using tobacco. - Ebola Screening: : No symptoms or risks identified at this time. Screenin:15 Abuse screen: Denies threats or abuse. Denies injuries from another. Nutritional ca1 screening: No deficits noted. Tuberculosis screening: No symptoms or risk factors identified. Fall Risk Secondary diagnosis (15 points) Cerebral Palsy. Ambulatory Aid- Crutches/Cane/Walker (15 pts). Gait- Impaired (20 pts.). Assessment: 15:15 General: Appears in no apparent distress. comfortable, Behavior is calm, cooperative, ca1 appropriate for age. Pain: Complains of pain in left shoulder Pain currently is 8 out of 10 on a pain scale. Neuro: Level of Consciousness is awake, alert, obeys commands, Oriented to person, place, time, situation, Speech is slurred. Cardiovascular: Heart tones S1 S2 present Capillary refill < 3 seconds Patient's skin is warm and dry. Respiratory: Airway is patent Respiratory effort is even, unlabored, Respiratory pattern is regular, symmetrical, Breath sounds are clear bilaterally. GI: No signs and/or symptoms were reported involving the gastrointestinal system. : No signs and/or symptoms were reported regarding the genitourinary system. EENT: No signs and/or symptoms were reported regarding the EENT system. Derm: Skin is intact, Skin is pink, warm \T\ dry. Wound noted on top of left anterior shoulder Wound is pus-filled raised lump with pus drainage. Musculoskeletal: Circulation, motion, and sensation intact. Range of motion: limited in right shoulder and right elbow. 16:50 Reassessment: Patient appears in no apparent distress at this time. Patient and/or ca1 family updated on plan of care and expected duration. Pain level reassessed. Patient is alert, oriented x 3, equal unlabored respirations, skin warm/dry/pink. Breathing Treatment still ongoing. 17:35 Reassessment: Patient appears in no apparent distress at this time. Patient is alert, ca1 oriented x 3, equal unlabored respirations, skin warm/dry/pink. Observation and monitoring after administration of Clindamycin. Vital Signs: 15:14 BP 98 / 65; Pulse 102; Resp 20; Temp 97.9; Pulse Ox 100% on R/A; Pain 10/10; hb 16:50 BP 131 / 79; Pulse 105; Resp 19; Pulse Ox 100% on Nebulizer Mask; ca1 17:35 BP 103 / 63; Pulse 114; Resp 19; Pulse Ox 100% on R/A; ca1 ED Course: 15:01 Patient arrived in ED. rg4 15:01 Reji Bowman MD is Private Physician. rg4 15:14 Triage completed. hb 15:14 Arm band placed on. hb 15:15 Patient has correct armband on for positive identification. Placed in gown. Bed in low ca1 position. Call light in reach. Side rails up X 1. Pulse ox on. NIBP on. Warm blanket given. 15:20 Ewelina Fuentes [facility]-C [facility]. snw 15:20 Andrea Connors MD is Attending Physician. snw 15:44 Beth Watts, VICKIE is Primary Nurse. ca1 16:20 Assist provider with I \T\ D: of an abscess on left upper left anterior shoulder Set up ca1 I\T\D tray. Performed by Ewelina OH Wound packed. 4X4s, Dressing with 4X4s, Patient tolerated well. 16:31 Chris Hickman MD is Referral Physician. snw 17:05 Patient did not have IV access during this emergency room visit. ca1 Administered Medications: 14:20 Drug: Lidocaine (2 %) 1 amp {Note: Administered By Ewelina Fuentes NP.} Volume: 5 ml; ca1 Route: Infiltration; 16:38 Drug: Tylenol #3 (300 mg-30 mg) 1 tablet Route: PO; ca1 17:11 Follow up: Response: No adverse reaction ca1 16:40 Drug: Albuterol - atroVENT (3:1) (2.5 mg - 0.5 mg) 3 ml Route: Nebulizer; ca1 17:31 Follow up: Response: No adverse reaction; Marked relief of symptoms ca1 17:20 Drug: Clindamycin 600 mg Route: IM; Site: left gluteus; ca1 17:37 Follow up: Response: No adverse reaction ca1 Outcome: 16:32 Discharge ordered by . snw 17:36 Discharged to home via wheelchair, with family. ca1 17:36 Condition: stable 17:36 Discharge instructions given to patient, family, Instructed on discharge instructions, follow up and referral plans. medication usage, Demonstrated understanding of instructions, follow-up care, medications, Prescriptions given X 2. 17:38 Patient left the ED. ca1 Signatures: Ewelina Fuentes FNP-C FINAL TESTER-Csnw Suma Freitas RN RN hb Garcia, Rubi rg4 Beth Watts RN RN ca1 Corrections: (The following items were deleted from the chart) 15:58 15:57 Temp 101.3F; ca1 ca1 17:06 16:30 Reassessment: Patient appears in no apparent distress at this time. Patient ca1 and/or family updated on plan of care and expected duration. Pain level reassessed. Patient is alert, oriented x 3, equal unlabored respirations, skin warm/dry/pink. Breathing Treatment still ongoing. ca1
--- NOTE | 2018-04-02 16:33 | EDPHYS ---
Physician Documentation [facility] Name: Rigo Lam Age: 78 yrs Sex: Male : 1940 Arrival Date: 04/02/2018 Time: 15:01 Bed 28 Private MD: Reji Bowman ED Physician Andrea Connors HPI: 04/02 16:37 This 78 yrs old Male presents to ER via Ambulatory with complaints of snw Ruptured Cyst. 16:37 Onset: The symptoms/episode began/occurred acutely. Associated signs and symptoms: snw Pertinent positives: tenderness and drainage to erythematous cyst to left shoulder. Modifying factors: The patient symptoms are alleviated by nothing. The patient has experienced a previous episode. It is unknown whether or not the patient has recently seen a physician. Historical: - Allergies: 15:13 Sulfa (Sulfonamide Antibiotics); hb - Home Meds: 15:13 Actos 30 mg Oral tab 1 tab once daily [Active]; aspirin 81 mg Oral TbEC 1 tab once hb daily [Active]; loratadine 10 mg Oral TbDL 1 tab once daily [Active]; meclizine 25 mg Oral tab 1 tab [Active]; Metformin Oral [Active]; probenecid 500 mg Oral tab [Active]; Tylenol #3 Oral [Active]; - PMHx: 15:13 Cerebral Palsy; Diabetes - NIDDM; hb - PSHx: 15:13 Appendectomy; Cholecystectomy; hb - Immunization history:: Flu vaccine is not up to date. - Social history:: Smoking status: Patient/guardian denies using tobacco. - Ebola Screening: : No symptoms or risks identified at this time. ROS: 16:37 Constitutional: Negative for fever, chills, and weight loss, Eyes: Negative for injury, snw pain, redness, and discharge, ENT: Negative for injury, pain, and discharge, Neck: Negative for injury, pain, and swelling, Cardiovascular: Negative for chest pain, palpitations, and edema, Respiratory: Negative for shortness of breath, cough, wheezing, and pleuritic chest pain, Abdomen/GI: Negative for abdominal pain, nausea, vomiting, diarrhea, and constipation, Back: Negative for injury and pain, : Negative for injury, bleeding, discharge, and swelling, MS/Extremity: Negative for injury and deformity, Neuro: Negative for headache, weakness, numbness, tingling, and seizure. 16:37 Skin: Positive for erythema, and drainage from left shoulder cyst. Exam: 16:37 Head/Face: Normocephalic, atraumatic. Eyes: Pupils equal round and reactive to light, snw extra-ocular motions intact. Lids and lashes normal. Conjunctiva and sclera are non-icteric and not injected. Cornea within normal limits. Periorbital areas with no swelling, redness, or edema. ENT: Nares patent. No nasal discharge, no septal abnormalities noted. Tympanic membranes are normal and external auditory canals are clear. Oropharynx with no redness, swelling, or masses, exudates, or evidence of obstruction, uvula midline. Mucous membranes moist. Neck: Trachea midline, no thyromegaly or masses palpated, and no cervical lymphadenopathy. Supple, full range of motion without nuchal rigidity, or vertebral point tenderness. No Meningismus. Chest/axilla: Normal chest wall appearance and motion. Nontender with no deformity. No lesions are appreciated. 16:37 Abdomen/GI: Soft, non-tender, with normal bowel sounds. No distension or tympany. No guarding or rebound. No evidence of tenderness throughout. Back: No spinal tenderness. No costovertebral tenderness. Full range of motion. Neuro: Awake and alert, GCS 15, oriented to person, place, time, and situation. Cranial nerves II-XII grossly intact. Hx of CP and lower body weakness 16:37 Constitutional: The patient appears alert, awake, frail, dry appearing 16:37 Cardiovascular: Rate: tachycardic, Pulses: no pulse deficits are appreciated. 16:37 Respiratory: the patient does not display signs of respiratory distress, Respirations: shallow respirations, tachypnea, Breath sounds: wheezing: expiratory is heard diffusely. 16:37 Musculoskeletal/extremity: Exam is negative for acute changes. 16:37 Skin: Appearance: Color: elsy, Moisture: dry, abscess, that is large, of the left shoulder, with drainage, that is purulent, with surrounding cellulitis. Vital Signs: 15:14 BP 98 / 65; Pulse 102; Resp 20; Temp 97.9; Pulse Ox 100% on R/A; Pain 10/10; hb 16:50 BP 131 / 79; Pulse 105; Resp 19; Pulse Ox 100% on Nebulizer Mask; ca1 17:35 BP 103 / 63; Pulse 114; Resp 19; Pulse Ox 100% on R/A; ca1 Procedures: 16:34 I \T\ D: Incision and drainage was performed for an abscess of the left shoulder Prepped snw with ramya. Anesthetized with 5 ml's 1% Lidocaine. Incised with #15 blade. Drained large amount Loculations removed. Abscess cavity explored. Packed with sterile gauze, Dressing: non-Adherent dressing, the patient tolerated the procedure well. MDM: 15:44 Patient medically screened. snw 16:36 Data reviewed: vital signs, nurses notes. Data interpreted: Pulse oximetry: on room air snw is 100 %. Interpretation: normal. Counseling: I had a detailed discussion with the patient and/or guardian regarding: the historical points, exam findings, and any diagnostic results supporting the discharge/admit diagnosis, the need for outpatient follow up, to return to the emergency department if symptoms worsen or persist or if there are any questions or concerns that arise at home. Special discussion: I discussed in detail with the patient the higher chance of wound infection based on his presenting history. Based on the history and exam findings, there is no indication for further emergent testing or inpatient evaluation. I discussed with the patient/guardian the need to see the general surgeon for further evaluation of the symptoms. 04/02 15:42 Order name: I\T\D Setup; Complete Time: 17:08 snw Administered Medications: 14:20 Drug: Lidocaine (2 %) 1 amp {Note: Administered By Ewelina Fuentes NP.} Volume: 5 ml; ca1 Route: Infiltration; 16:38 Drug: Tylenol #3 (300 mg-30 mg) 1 tablet Route: PO; ca1 17:11 Follow up: Response: No adverse reaction ca1 16:40 Drug: Albuterol - atroVENT (3:1) (2.5 mg - 0.5 mg) 3 ml Route: Nebulizer; ca1 17:31 Follow up: Response: No adverse reaction; Marked relief of symptoms ca1 17:20 Drug: Clindamycin 600 mg Route: IM; Site: left gluteus; ca1 17:37 Follow up: Response: No adverse reaction ca1 Disposition: 04/03 07:01 Co-signature as Attending Physician, Andrea Connors MD I agree with the assessment and arminda plan of care. Disposition: 04/02/18 16:32 Discharged to Home. Impression: Sebaceous cyst - infected. - Condition is Stable. - Discharge Instructions: Skin Abscess, MRSA Infection, Adult, Epidermal Cyst Removal, Care After. - Prescriptions for Clindamycin HCl 300 mg Oral Capsule - take 1 capsule by ORAL route every 6 hours for 10 days; 40 capsule. Tylenol- Codeine #3 300-30 mg Oral Tablet - take 1 tablet by ORAL route every 4-6 hours As needed; 12 tablet. - Medication Reconciliation Form, Thank You Letter, Antibiotic Education, Prescription Opioid Use form. - Follow up: Chris Hickman MD; When: 2 - 3 days; Reason: Recheck today's complaints, Continuance of care. Signatures: Andrea Connors MD MD cha Therrien, Shelly, [employer]ING MACHINE TENDER-C [employer]ALL MINING MACHINE TENDER-Csnw Suma Freitas, RN RN hb AcBeth shaver RN RN ca1 Corrections: (The following items were deleted from the chart) 04/02 17:38 16:32 04/02/2018 16:32 Discharged to Home. Impression: Sebaceous cyst - infected. ca1 Condition is Stable. Forms are Medication Reconciliation Form, Thank You Letter, Antibiotic Education, Prescription Opioid Use. Follow up: Chris Hickman; When: 2 - 3 days; Reason: Recheck today's complaints, Continuance of care. snw
[2018-04-02] MEDS ORDERED: CODEINE 30MG/APAP 300MG TAB ONE (16:48)
[2018-04-02] MEDS ORDERED: IPRATROPIUM BROM 0.5MG/2.5ML ONE (16:48)
[2018-04-02] MEDS ORDERED: ALBUTEROL 2.5 MG/3 ML NEB SOL ONE (16:48)
[2018-04-02] MEDS ORDERED: CLINDAMYCIN IV 150 MG/ML (4 mL) VIAL ONE (16:56)
[2018-04-02 18:04] VITALS: TEMP 97.9; O2SAT 100
[2018-04-02 18:07] VITALS: BP 103/63
== END 2018-04-02 17:38 | disposition home or self-care (01) ==
LOC: ER 14:53
PROC: 0J9F0ZZ Drainage of Left Upper Arm Subcutaneous Tissue and Fascia, Open Approach (ICD-10-PCS; principal; 2018-04-02)
DX: L72.8 Other follicular cysts of the skin and subcutaneous tissue (principal); G80.9 Cerebral palsy, unspecified; E11.9 Type 2 diabetes mellitus without complications; Z79.84 Long term (current) use of oral hypoglycemic drugs; Z79.82 Long term (current) use of aspirin; Z88.2 Allergy status to sulfonamides
CPT/HCPCS: 10060; 94640; 96372; 99284; S0077

== ENCOUNTER 2019-06-25 03:45 | Inpatient (IN) | payer OTHER ==
[2019-06-25] MEDS ORDERED: NA CHLORIDE 0.9% 1,000 ML ONE (04:23)
[2019-06-25 04:36] LABS: Absolute Lymphocytes (CBC) 0.7 K/uL (0.7-4.9); Basophils % 0.3 % (0-1.3); Hematocrit 47.5 % (39.6-49.0); Lymphocytes % 4.7 % (15.3-44.8); MPV 8.4 fL (7.6-11.3); RBC Red Blood Cell Count 5.09 M/uL (4.33-5.43)
[2019-06-25] MEDS ORDERED: AZITHROMYCIN 500 MG INJ IVPB ONE (04:41)
[2019-06-25] MEDS ORDERED: CEFTRIAXONE/SWI 1gm 1 GM/10 ML SYR ONE (04:41)
[2019-06-25] MEDS ORDERED: NA CHLORIDE 0.9% 250 ML ONE (04:41)
[2019-06-25 04:55] LABS: BUN Blood Urea Nitrogen 24 mg/dL (7-18); Bicarbonate 25 mmol/L (21-32); Creatine Phosphokinase 71 U/L (39-308); Glucose Level 196 mg/dL (74-106); Potassium 4.7 mmol/L (3.5-5.1); Sodium Level 137 mmol/L (136-145); Troponin (Emerg Dept Use Only) < 0.02 ng/mL (0.0-0.045)
[2019-06-25 05:06] LABS: Blood Morphology Comment NOT SEEN (NOT SEEN); Platelet Estimate ADEQ
--- NOTE | 2019-06-25 05:28 | ER ---
Nurse's Notes [facility] Name: Rigo Lam Age: 79 yrs Sex: Male : 1940 Arrival Date: 06/25/2019 Time: 03:47 Bed 8 Private MD: Diagnosis: Pneumonia, unspecified organism;Sepsis, unspecified organism Presentation: 06/24 03:50 Chief complaint: Patient's son or daughter states: He has had shortness of breath with sg cough that has worsened tonight, started about a day ago, he fell and has some skin tears to the right arm, fell from standing while trying to walk to the car to come to the ER, pt family reports he normally doesn't need o2 but he has been extremely short of breath and not breathing normally tonight, breathing really hard. Coronavirus screen: Patient reports a cough. Patient reports shortness of breath or difficulty breathing. Patient denies measured and/or subjective temperature greater than 100.4F prior to today's visit. Patient denies travel on a cruise ship or to a country the [facility] currently lists as an affected area. Patient denies contact with known and/or suspected case of COVID-19. Ebola Screen: Patient negative for fever greater than or equal to 101.5 degrees Fahrenheit, and additional compatible Ebola Virus Disease symptoms Patient denies exposure to infectious person. Patient denies travel to an Ebola-affected area in the 21 days before illness onset. No symptoms or risks identified at this time. Initial Sepsis Screen: Does the patient meet any 2 criteria? RR > 20 per min. HR > 90 bpm. Yes Does the patient have a suspected source of infection? Yes: Productive cough/pneumonia Risk Assessment: Do you want to hurt yourself or someone else? Patient reports no desire to harm self or others. Onset of symptoms was June 25, 2019. Care prior to arrival: None. Transition of care: patient was not received from another setting of care. 03:50 Method Of Arrival: Wheelchair sg 03:50 Acuity: ARMEN 2 sg Historical: - Allergies: 04:02 Sulfa (Sulfonamide Antibiotics); sg - PMHx: 04:02 Cerebral Palsy; Diabetes - NIDDM; sg - PSHx: 04:02 Appendectomy; Cholecystectomy; sg - Immunization history:: Adult Immunizations up to date. - Social history:: Smoking status: Patient denies any tobacco usage or history of. - Family history:: not pertinent. - Hospitalizations: : No recent hospitalization is reported. - Coronavirus screen:: The patient has NOT traveled to [place] in the past 14 days. The patient has NOT had contact with known/suspected case of Coronavirus? Proceed with normal triage procedures. Screenin:22 Abuse screen: Denies threats or abuse. Nutritional screening: No deficits noted. ea Tuberculosis screening: No symptoms or risk factors identified. Fall Risk Fall in past 12 months (25 points). IV access (20 points). Assessment: 04:00 General: Appears uncomfortable, Behavior is appropriate for age. Pain:. Pain: Denies ea pain. Neuro: Level of Consciousness is awake, alert, obeys commands, Oriented to person, place, situation. Cardiovascular: Patient's skin is warm and dry. Respiratory: Airway is patent Respiratory effort is labored, Respiratory pattern is tachypnea Breath sounds with wheezes bilaterally. Respiratory: Breath sounds are coarse. Derm: Skin is pale. 05:07 Reassessment: Patient and/or family updated on plan of care and expected duration. Pain ea level reassessed. Patient is alert, oriented x 3, equal unlabored respirations, skin warm/dry/pink. 06:30 Reassessment: Patient and/or family updated on plan of care and expected duration. Pain ea level reassessed. Patient is alert, oriented x 3, equal unlabored respirations, skin warm/dry/pink. 07:15 Reassessment: Patient appears in no apparent distress at this time. No changes from hb previously documented assessment. Patient and/or family updated on plan of care and expected duration. Pain level reassessed. 08:30 Reassessment: Admission ordered, awaiting room assignment at this time. Resting with hb eyes closed, no apparent distress. Vital signs stable. 09:30 Reassessment: Patient appears in no apparent distress at this time. No changes from hb previously documented assessment. Patient and/or family updated on plan of care and expected duration. Pain level reassessed. Vital Signs: 03:50 Pulse 122; Resp 36; Temp 98.9; Pulse Ox 90% on R/A; Weight 63.5 kg; Height 5 ft. 10 in. sg (177.80 cm); Pain 0/10; 03:52 BP 127 / 79; Pulse 115; Resp 34; Pulse Ox 96% on R/A; ea 05:05 BP 137 / 68; Pulse 110; Resp 27; Pulse Ox 100% ; ea 06:10 BP 112 / 63; Pulse 120; Resp 24; Pulse Ox 97% on R/A; ea 07:30 BP 115 / 61; Pulse 113; Resp 22; Pulse Ox 95% ; hb 08:30 BP 116 / 64; Pulse 108; Resp 21; Pulse Ox 96% on R/A; hb 09:30 BP 118 / 67; Pulse 108; Resp 21; Pulse Ox 94% ; hb 03:50 Body Mass Index 20.09 (63.50 kg, 177.80 cm) ED Course: 03:47 Patient arrived in ED. ag3 03:58 Marlo Gonzalez MD is Attending Physician. rn 04:01 Triage completed. sg 04:01 Arm band placed on. sg 04:14 Inserted saline lock: 20 gauge in right antecubital area, using aseptic technique. ea Inserted saline lock: 20 gauge in left antecubital area, using aseptic technique. Blood collected. 04:21 Dee Tolentino RN is Primary Nurse. ea 04:23 Patient has correct armband on for positive identification. Bed in low position. Side ea rails up X2. desk monitor on. Pulse ox on. NIBP on. 04:36 Chest Single View XRAY In Process Unspecified. EDMS 05:25 Cyndie Bowman MD is Hospitalizing Provider. rn 06:11 No provider procedures requiring assistance completed. Patient admitted, IV remains in ea place. Administered Medications: 04:21 Drug: NS 0.9% 1000 ml Route: IV; Rate: 1000 ml; Site: left antecubital; ea 06:22 Follow up: Response: No adverse reaction; IV Status: Completed infusion; IV Intake: ea 1000ml 04:23 CANCELLED (Duplicate Order): Xopenex 1.25 mg Inhalation once rn 04:26 Drug: SOLU-Medrol 125 mg Route: IVP; Site: left antecubital; ea 05:10 Follow up: Response: No adverse reaction ea 04:49 Drug: Xopenex (3) 1.25 mg Route: Inhalation; ea 04:49 Drug: Rocephin 1 grams Route: IV; Rate: calculated rate; Site: right antecubital; ea 05:00 Follow up: Response: No adverse reaction; IV Status: Completed infusion ea 05:00 Drug: Zithromax 500 mg Route: IVPB; Infused Over: 1 hrs; Site: left antecubital; ea 06:21 Follow up: Response: No adverse reaction; IV Status: Completed infusion; IV Intake: ea 250ml 06:02 Drug: NS 0.9% 500 ml Route: IV; Rate: bolus; Site: left antecubital; ea Intake: 06:21 IV: 250ml; Total: 250ml. ea 06:22 IV: 1000ml; Total: 1250ml. ea Outcome: 05:26 Decision to Hospitalize by Provider. rn 06:11 Instructed on the need for admit, Demonstrated understanding of instructions. ea 07:02 Admitted to ER Hold. [facility]. ea 07:02 Condition: stable 11:22 Patient left the ED. Signatures: Dispatcher [employer] EDMS Emmanuel Dumont RN RN sg Nieto, Roman, MD MD rn Baxter, Heather, RN RN hb Antunez, Elena, RN RN ea Gomez, Alice ag3 Corrections: (The following items were deleted from the chart) 04:02 03:50 Coronavirus screen: Patient denies a cough. Patient reports shortness of breath sg or difficulty breathing. Patient denies measured and/or subjective temperature greater than 100.4F prior to today's visit. Patient denies travel on a cruise ship or to a country the [facility] currently lists as an affected area. Patient denies contact with known and/or suspected case of COVID-19. sg
--- NOTE | 2019-06-25 05:28 | EDPHYS ---
Physician Documentation [facility] Name: Rigo Lam Age: 79 yrs Sex: Male : 1940 Arrival Date: 06/25/2019 Time: 03:47 Bed 8 Private MD: ED Physician Marlo Gonzalez HPI: 06/24 04:16 This 79 yrs old Male presents to ER via Wheelchair with complaints of Cough, rn CHILLS. 04:16 The patient or guardian reports cough, difficulty breathing. Onset: The rn symptoms/episode began/occurred yesterday. Severity of symptoms: At their worst the symptoms were moderate, in the emergency department the symptoms are unchanged. Modifying factors: The symptoms are alleviated by nothing, the symptoms are aggravated by exertion. The patient has experienced similar episodes in the past. The patient has not recently seen a physician. Family reports increased sob and cough since last night, no fever, similar to when had pneumonia in the past. + generalized weakness and fatigue. . Historical: - Allergies: 04:02 Sulfa (Sulfonamide Antibiotics); sg - PMHx: 04:02 Cerebral Palsy; Diabetes - NIDDM; sg - PSHx: 04:02 Appendectomy; Cholecystectomy; sg - Immunization history:: Adult Immunizations up to date. - Social history:: Smoking status: Patient denies any tobacco usage or history of. - Family history:: not pertinent. - Hospitalizations: : No recent hospitalization is reported. - Coronavirus screen:: The patient has NOT traveled to [place] in the past 14 days. The patient has NOT had contact with known/suspected case of Coronavirus? Proceed with normal triage procedures. ROS: 04:16 Constitutional: + chills ENT: Negative for injury, pain, and discharge, Neck: Negative rn for injury, pain, and swelling, Cardiovascular: Negative for chest pain, palpitations, and edema, Respiratory: + cough and sob Abdomen/GI: Negative for abdominal pain, nausea, vomiting, diarrhea, and constipation, MS/Extremity: Negative for injury and deformity, Skin: Negative for injury, rash, and discoloration, Neuro: + generalized weakness Exam: 04:16 Constitutional: This is a well developed, well nourished patient who is awake, alert, rn moderate tachypnea Head/Face: Normocephalic, atraumatic. Cardiovascular: Tachycardic, regular Respiratory: Moderate tachypnea with audible wheezing Abdomen/GI: soft, non-tender Skin: Warm, dry, and no evidence of cellulitis. MS/ Extremity: Pulses equal, no cyanosis. Neuro: Awake and alert, GCS 15 04:19 ECG was reviewed by the Attending Physician. rn Vital Signs: 03:50 Pulse 122; Resp 36; Temp 98.9; Pulse Ox 90% on R/A; Weight 63.5 kg; Height 5 ft. 10 in. sg (177.80 cm); Pain 0/10; 03:52 BP 127 / 79; Pulse 115; Resp 34; Pulse Ox 96% on R/A; ea 05:05 BP 137 / 68; Pulse 110; Resp 27; Pulse Ox 100% ; ea 06:10 BP 112 / 63; Pulse 120; Resp 24; Pulse Ox 97% on R/A; ea 07:30 BP 115 / 61; Pulse 113; Resp 22; Pulse Ox 95% ; hb 08:30 BP 116 / 64; Pulse 108; Resp 21; Pulse Ox 96% on R/A; hb 09:30 BP 118 / 67; Pulse 108; Resp 21; Pulse Ox 94% ; hb 03:50 Body Mass Index 20.09 (63.50 kg, 177.80 cm) sg MDM: 03:58 Patient medically screened. rn 05:25 Differential Diagnosis: Bronchitis Influenza Viral Syndrome Pneumonia Other sepsis, rn UTI. Data reviewed: vital signs, nurses notes, lab test result(s), EKG, radiologic studies, plain films, and as a result, I will admit patient. Counseling: I had a detailed discussion with the patient and/or guardian regarding: the historical points, exam findings, and any diagnostic results supporting the discharge/admit diagnosis, lab results, radiology results, the need for further work-up and treatment in the hospital. Response to treatment: the patient's symptoms have mildly improved after treatment, and as a result, I will admit patient. Admission orders: after a detailed discussion of the patient's condition and case, the admit orders are written by me. 06/24 04:07 Order name: Urine Culture rn 06/24 04:07 Order name: Basic Metabolic Panel; Complete Time: 05:04 rn 06/24 04:07 Order name: Blood Culture Adult (2) rn 06/24 04:07 Order name: CBC with Diff; Complete Time: 05:23 rn 06/24 04:07 Order name: CPK; Complete Time: 05:04 rn 06/24 04:07 Order name: Lactate; Complete Time: 04:54 rn 06/24 04:07 Order name: Procalcitonin; Complete Time: 05:04 rn 06/24 04:07 Order name: Troponin (emerg Dept Use Only); Complete Time: 05:04 rn 06/24 04:07 Order name: Urine Microscopic Only; Complete Time: 06:21 rn 06/24 04:07 Order name: Flu; Complete Time: 05:23 rn 06/24 04:07 Order name: COVID-19 rn 06/24 04:24 Order name: Glucose, Ancillary Testing; Complete Time: 04:26 EDMS 06/24 04:48 Order name: Manual Differential; Complete Time: 05:23 EDMS 06/24 05:56 Order name: Urine Dipstick--Ancillary (enter results); Complete Time: 06:21 mt 06/24 04:07 Order name: Chest Single View XRAY; Complete Time: 07:02 rn 06/24 04:07 Order name: Accucheck; Complete Time: 04:21 rn 06/24 04:07 Order name: Cardiac monitoring; Complete Time: 04:21 rn 06/24 04:07 Order name: EKG - Nurse/Tech; Complete Time: 04:21 rn 06/24 04:07 Order name: IV Saline Lock - Large Bore; Complete Time: 04:21 rn 06/24 04:07 Order name: Labs collected and sent; Complete Time: 04:21 rn 06/24 04:07 Order name: O2 Per Protocol; Complete Time: 04:22 rn 06/24 04:07 Order name: O2 Sat Monitoring; Complete Time: 04:22 rn 06/24 09:37 Order name: Lactate Sepsis 2 HR Follow-up EDMS 06/24 04:07 Order name: Urine Dipstick-Ancillary (obtain specimen); Complete Time: 05:57 rn 06/24 04:13 Order name: Droplet/Contact Precautions; Complete Time: 04:53 rn EC:19 Rate is 111 beats/min. Rhythm is regular. QRS [place] is Normal. GA interval is normal. rn QRS interval is normal. QT interval is normal. No Q waves. T waves are Normal. No ST changes noted. Clinical impression: Sinus tachycardia. Interpreted by me. Reviewed by me. Administered Medications: 04:21 Drug: NS 0.9% 1000 ml Route: IV; Rate: 1000 ml; Site: left antecubital; ea 06:22 Follow up: Response: No adverse reaction; IV Status: Completed infusion; IV Intake: ea 1000ml 04:23 CANCELLED (Duplicate Order): Xopenex 1.25 mg Inhalation once rn 04:26 Drug: SOLU-Medrol 125 mg Route: IVP; Site: left antecubital; ea 05:10 Follow up: Response: No adverse reaction ea 04:49 Drug: Xopenex (3) 1.25 mg Route: Inhalation; ea 04:49 Drug: Rocephin 1 grams Route: IV; Rate: calculated rate; Site: right antecubital; ea 05:00 Follow up: Response: No adverse reaction; IV Status: Completed infusion ea 05:00 Drug: Zithromax 500 mg Route: IVPB; Infused Over: 1 hrs; Site: left antecubital; ea 06:21 Follow up: Response: No adverse reaction; IV Status: Completed infusion; IV Intake: ea 250ml 06:02 Drug: NS 0.9% 500 ml Route: IV; Rate: bolus; Site: left antecubital; ea Disposition: 06/25/19 05:26 Hospitalization ordered by Cyndie Bowman for Inpatient Admission. Preliminary diagnosis are Pneumonia, unspecified organism, Sepsis, unspecified organism. - Bed requested for Intensive Care Unit. - Status is Inpatient Admission. hb - Condition is Stable. - Problem is new. - Symptoms have improved. Critical care time excluding procedures: 05:25 Critical care time: Bedside Care: 25 minutes, Family Intervention: 5 minutes. Total rn time: 30 minutes Signatures: Dispatcher [employer] EDMS Carole Bobby RN RN mw Gay, Steven RN Marlo Wise MD MD rn Smirch, Shelby, RN RN ss Roszak, Josh, PA PA [id number] Suma Freitas RN RN hb Antunez, Elena, RN RN ea Corrections: (The following items were deleted from the chart) 04:23 04:22 Xopenex 1.25 mg Inhalation once ordered. rn rn 06:21 05:26 Hospitalization Ordered by Cyndie Bowman MD for Inpatient Admission. Preliminary rn diagnosis is Pneumonia, unspecified organism; Sepsis, unspecified organism. Bed requested for Telemetry/MedSurg (Inpatient). Status is Inpatient Admission. Condition is Stable. Problem is new. Symptoms have improved. rn 06:26 06:21 06/25/2019 05:26 Hospitalization Ordered by A Colby [place] for Inpatient Admission. mw Preliminary diagnosis is Pneumonia, unspecified organism; Sepsis, unspecified organism. Bed requested for Intensive Care Unit. Status is Inpatient Admission. Condition is Stable. Problem is new. Symptoms have improved. rn 10:26 06:06/25/2019 05:26 Hospitalization Ordered by A Colby [place] for Inpatient Admission. ss Preliminary diagnosis is Pneumonia, unspecified organism; Sepsis, unspecified organism. Bed requested for [facility] ER HOLD. Status is Inpatient Admission. Condition is Stable. Problem is new. Symptoms have improved. mw 10:26 10:06/25/2019 05:26 Hospitalization Ordered by A Colby [place] for Inpatient Admission. ss Preliminary diagnosis is Pneumonia, unspecified organism; Sepsis, unspecified organism. Bed requested for [facility] ER HOLD. Status is Inpatient Admission. Condition is Stable. Problem is new. Symptoms have improved. ss 11:22 10:26 06/25/2019 05:26 Hospitalization Ordered by A Colby [place] for Inpatient Admission. hb Preliminary diagnosis is Pneumonia, unspecified organism; Sepsis, unspecified organism. Bed requested for Intensive Care Unit. Status is Inpatient Admission. Condition is Stable. Problem is new. Symptoms have improved. ss
[2019-06-25 05:59] LABS: Urine Culture Reflex Order NOT NEEDED
[2019-06-25 06:00] LABS: Urine Blood NEGATIVE (NEG); Urine Glucose NEGATIVE (NEG); Urine Protein TRACE (NEG); Urine Specific Gravity >1.030 (1.005-1.030); Urine pH 5.5 (5.0-7.0)
[2019-06-25 06:00] LABS: Urine Amorphous Sediment 1+ /HPF (NONE SEEN); Urine Bacteria <20 /HPF (NONE SEEN); Urine RBC <5 /HPF (NONE SEEN); Urine Urothelial Cells <5 /HPF (NONE SEEN)
[2019-06-25] MEDS ORDERED: NA CHLORIDE 0.9% 500 ML ONE (06:02)
--- NOTE | 2019-06-25 07:00 | RAD REPORT ---
EXAM DESCRIPTION: Peggy Single View06/25/2019 4:35 am CLINICAL HISTORY: Cough COMPARISON: 2017 FINDINGS: The lungs are hyperaerated consistent COPD. The lungs appear clear of acute infiltrate. The heart is mildly enlarged IMPRESSION: No acute abnormalities displayed
[2019-06-25] MEDS ORDERED: D5.45NS W/KCL 20MEQ 20 MEQ/1,000 ML BAG IV SCH (11:02)
[2019-06-25] MEDS ORDERED: IPRATROPIUM BROM 0.5MG/2.5ML NEB PRN (11:02)
[2019-06-25] MEDS ORDERED: ALBUTEROL 2.5 MG/3 ML NEB SOL NEB PRN (11:02)
[2019-06-25] MEDS ORDERED: ACETAMINOPHEN 500 MG TAB PO PRN (11:02)
[2019-06-25] MEDS ORDERED: ONDANSETRON 4 MG/2 ML VIAL IV PRN (11:02)
[2019-06-25 11:34] VITALS: BMI 21.5
[2019-06-25] MEDS: METHYLPREDNISOLONE 40 MG INJ IV SCH ×2 (12:27→16:51)
--- NOTE | 2019-06-25 12:53 | P.CNS ---
Date of Consult: 06/25/19 Reason for Consult: Possible pneumonia Chief Complaint: Hypoxemia History of Present Illness: Patient is DT 1 years of age admitted with shortness of breath cough patient has cerebral palsy is extremely short of breath mild temperatures lucero virus screen is negative admitted here to the ICU is currently doing well hemodynamically stable elevated right hemidiaphragm patient has chronic renal insufficiency is alert responsive white count mildly elevated pro calcitonin level is negative Allergies Sulfa (Sulfonamide Antibiotics) Allergy (Intermediate, Verified 10/20/17 17:11) Unknown Home Medications: Aspirin Enteric Coated [Ecotrin*] 81 mg PO DAILY 02/20/15 Multivit-Min/Iron Fum/Folic AC [Utfty-Snmgdbt-Jgpdtuvk Tablet] 2 each PO DAILY 02/20/15 Albuterol Sulfate [Proair Hfa] 2 puff PO DAILY PRN 10/20/17 Cyanocobalamin (Vitamin B-12) [Vitamin B-12] 1 tab PO DAILY 10/20/17 L. Acidophilus/L. 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 -: vertigo -: Cholesyectomy -: Appendectomy -: Tonsillectomy -: Neck surgery - Family History Father Medical History: Lung disease Notes: emphysema Mother Medical History: Heart disease, Diabetes Sister Medical History: Diabetes - Social History Smoking Status: Unknown if ever smoked Alcohol use: No CD- Drugs: No Caffeine use: No Place of Residence: Home Review of Systems is unable to be obtained Physical Examination Temp Pulse Resp BP Pulse Ox 98.9 F 108 H 21 H 118/67 06/25/19 03:50 06/25/19 09:30 06/25/19 09:30 06/25/19 09:30 General: Alert, Cooperative Neck: Supple Respiratory: Clear to auscultation bilaterally Cardiovascular: Regular rate/rhythm, Edema Laboratory Data (last 24 hrs) 06/25/19 04:14: WBC 15.1 H, Hgb 15.7, Hct 47.5, Plt Count 203 06/25/19 04:14: Sodium 137, Potassium 4.7, BUN 24 H, Creatinine 1.38 H, Glucose 196 H - Problems (1) Hypoxemia Current Visit: Yes Status: Acute Plan: Patient is 79 years of age admitted with acute onset of hypoxemia he has cerebral palsy no evidence of sepsis r patient has chronic renal failure patient is an antibiotic steroids could be transferred to the floor in stable. Patient is risk for thromboembolism the count for is acute onset of shortness of breath of ordered Dopplers of lower extremity echo anti coagulated for now
[2019-06-25] MEDS ORDERED: D50W 25 GM/50 ML SYRINGE/VIAL IV PRN (12:55)
[2019-06-25] MEDS ORDERED: GLUCAGON 1 MG/VIAL IM PRN (12:55)
[2019-06-25] MEDS: NA CHLORIDE 0.9% 1,000 ML IV SCH (13:07)
[2019-06-25] MEDS: ENOXAPARIN 40 MG/0.4 ML SQ SCH (16:51)
[2019-06-25] MEDS: INSULIN -REGULAR HUMAN 50 UNIT/0.5 ML ML SQ SCH ×2 (16:51→20:10)
[2019-06-25] MEDS: CEFTRIAXONE/SWI 1gm 1 GM/10 ML SYR IV SCH (18:24)
--- NOTE | 2019-06-25 20:14 | EKG ---
Test Date: 2019-06-25 Test Time: 04:06:31 Fire Lieutenant Marine: CHARLI MEASUREMENT RESULTS: Intervals: Rate: 111 CO: 124 QRSD: 86 QT: 326 QTc: 443 [place]: P: 59 CO: 124 QRS: 56 T: 72 INTERPRETIVE STATEMENTS: Sinus tachycardia Nonspecific T wave abnormality Abnormal ECG Compared to ECG 05/31/2016 15:00:40 T-wave abnormality now present Electronically Signed On 06-25-19 20:13:14 CDT by Gene Abreu
--- NOTE | 2019-06-25 20:28 | RAD REPORT ---
EXAM DESCRIPTION: US - Extrem Venous W Compress Humberto - 06/25/2019 7:51 pm CLINICAL HISTORY: Rule out DVTbilateral leg pain and swelling COMPARISON: None. TECHNIQUE: Real-time sonographic evaluation of the bilateral lower extremity common femoral, superfi cial femoral, popliteal and posterior tibial veins was performed. FINDINGS: Normal compressibility, flow augmentation, phasic flow and spontaneous flow are identified in the left and right lower extremity common femoral, superficial femoral, popliteal and posterior t ibial veins. No intraluminal filling defects seen. IMPRESSION: No DVT in either lower extremity.
[2019-06-25] MEDS: ALBUTEROL 2.5 MG/3 ML NEB SOL NEB PRN (20:45)
[2019-06-25] MEDS: IPRATROPIUM BROM 0.5MG/2.5ML NEB PRN (20:45)
[2019-06-26] MEDS: METHYLPREDNISOLONE 40 MG INJ IV SCH ×3 (01:27→17:16)
[2019-06-26] MEDS: NA CHLORIDE 0.9% 1,000 ML IV SCH (02:12)
[2019-06-26 05:21] LABS: Absolute Lymphocytes (CBC) 0.6 K/uL (0.7-4.9); Basophils % 0.3 % (0-1.3); Hematocrit 41.6 % (39.6-49.0); Lymphocytes % 4.2 % (15.3-44.8); MPV 8.3 fL (7.6-11.3); RBC Red Blood Cell Count 4.45 M/uL (4.33-5.43)
[2019-06-26] MEDS: AZITHROMYCIN IV 250 MG in NA CHLORIDE 0.9% 250 ML IVPB SCH (05:24)
[2019-06-26] MEDS: CEFTRIAXONE/SWI 1gm 1 GM/10 ML SYR IV SCH ×2 (05:25→17:17)
[2019-06-26 05:39] LABS: Potassium 4.1 mmol/L (3.5-5.1)
--- NOTE | 2019-06-26 06:09 | HP ---
Date of Admission: 06/25/2019 Chief Complaint: Cough, congestion, shortness of breath. History Of Present Illness: 79-year-old male patient admitted to the hospital after he came into the emergency room this morning with cough, congestion, and shortness of breath going on for the last co uple of days. Patient did fall down at home today before he came into emergency room as he was going to get up and lost balance and fell. Denies any injury. After he was evaluated in the ER, I was co ntacted requesting admission to the hospital. Patient was admitted to ICU. I saw the patient in the emergency room. Allergies: SULFA. Medications: List reviewed. Review of Systems: Respiratory: As mentioned above. All other systems reviewed and negative. Advanced Directives: As per my discussion with the patient and the patient's niece, patient's decisi on for advanced directives do not resuscitate and I did confirm that and we will write order in the c poe. Family History: Not pertinent. Social History: Prior history of smoking not at the present time. He quit smoking approximately 8 t o 10 years ago. Use of alcohol very rarely. Past Surgical History: Cholecystectomy, appendectomy, tonsillectomy, neck surgery. Past Medical History: Significant for COPD, type 2 diabetes mellitus, cerebral palsy, allergic rhini tis, and vertigo. Physical Examination: Vital Signs: When he first came into the emergency room, blood pressure 127/79, temperature 98.9, pu lse 122, respiratory rate 36, oxygen saturation 90%. Height 5 feet 9 inches, weight 145 pounds. General: Awake, alert, oriented, not in distress. HEENT: Head atraumatic, normocephalic. Conjunctivae nonerythematous. Sclerae white. Mouth, no thr ush or edema noted. Ears/Nose, no mass, lesion, discharge noted. Neck: Supple. No JVD, lymph nodes, bruit, thyromegaly noted. Lungs: Bilateral good equal air entry. Clear to auscultation. No rhonchi. No rales. Heart: Normal heart sounds, no murmur or gallop. Abdomen: Soft, bowel sounds normal. No guarding, rigidity, tenderness, mass, hepatosplenomegaly, dis tention, or bruit noted. Extremities: No leg edema. No calf tenderness. Skin: No rash, ulcer, cellulitis. Lymphatics: No lymph node enlargement in neck, supraclavicular, infraclavicular region. Neuro: No focal neurological deficit. Chest: Unremarkable. External Genitalia: Deferred. Rectal: Deferred. Laboratory Data: White count 15.1, hemoglobin 15.7, platelets 203. Sodium 137, potassium 4.7, chlor iveth 106, bicarb 25, BUN 24, creatinine 1.3, glucose 196. Lactic acid 2.3. Procalcitonin less than 0 .05. Urinalysis negative. Chest x-ray; no acute cardiopulmonary changes. Impression: 1.Acute exacerbation of chronic obstructive pulmonary disease. 2.Acute bronchitis. 3.Rule out pneumonia. 4.Type 2 diabetes mellitus. 5.Cerebral palsy. 6.Allergic rhinitis. Plan: We will go ahead and admit the patient to hospital for further evaluation and management of th is problem. Patient was admitted to ICU and COVID-19 test was done in the emergency room, result cam e back negative during the course of day today. We will give IV antibiotics, IV steroid, nebulizer t reatment, oxygen. DNR order was written in the chart. I will see him tomorrow morning for followup. I have advised the patient's son and patient's family to work with social service to [facility]. JOHN/MODL Voice ID: [id number]
[2019-06-26] MEDS: INSULIN -REGULAR HUMAN 50 UNIT/0.5 ML ML SQ SCH ×4 (07:28→21:00)
--- NOTE | 2019-06-26 08:51 | ECHO ---
HEIGHT: 5 ft 9 in WEIGHT: 145 lb 13.76 oz DATE OF STUDY: 06/25/[address]: Daniel Ribeiro MD 2-DIMENSIONAL: YES M.MODE: YES DOPPLER: YES COLOR FLOW: YES TDS: YES PORTABLE: DEFINITY: BUBBLE STUDY: DIAGNOSIS: POSSIBLE PULMONARY EMBOLISM CARDIAC HISTORY: CATHERIZATION: NO SURGERY: NO PROSTHETIC VALVE: NO PACEMAKER: NO MEASUREMENTS (cm) DIASTOLIC (NORMALS) SYSTOLIC (NORMALS) IVSd 1.0 (0.6-1.2) LA Diam (1.9-4.0) LVEF 52% LVIDd 4.7 (3.5-5.7) LVIDs 3.5 (2.0-3.5) %FS 27% LVPWd 1.1 (0.6-1.2) Ao Diam 3.4 (2.0-3.7) 2 DIMENSIONAL ASSESSMENT: RIGHT ATRIUM: NORMAL LEFT ATRIUM: NORMAL RIGHT VENTRICLE: NORMAL LEFT VENTRICLE: NORMAL TRICUSPID VALVE: NORMAL MITRAL VALVE: NORMAL PULMONIC VALVE: NORMAL AORTIC VALVE: NORMAL PERICARDIAL EFFUSION: NONE AORTIC ROOT: NORMAL LEFT VENTRICULAR WALL MOTION: NORMAL DOPPLER/COLOR FLOW: NORMAL COMMENTS: TECHNICALLY DIFFICULT STUDY. NORMAL LEFT VENTRICULAR SIZE AND FUNCTION. MILD TRICUSPID REGUGITATION. NORMAL EFFUSION. NORMAL WALL MOTION ABNORMALITY. TECHNOLOGIST: GERMANIA JENSEN
--- NOTE | 2019-06-26 12:18 | RAD REPORT ---
EXAM DESCRIPTION: RAD - Barium Swallow Modified - 06/26/2019 12:02 pm CLINICAL HISTORY: coughing with food Dysphagia COMPARISON: No comparisons TECHNIQUE: The patient was given liquid, semi-solid and solid forms of barium. Lateral view fluorosc opic imaging was performed in conjunction with speech pathology service. FINDINGS: LARYNGEAL PENETRATION DEEP TO THE LEVEL OF THE VOCAL CORDS WITH TEASPOON OF THIN, NOT FULL Y CLEARED. DEEP PENETRATION OF NECTAR VIA STRAW, CLEARED. MILD PENETRATION WITH NECTAR VIA TEASPOON, CLEARED. PHARYNGEAL RESIDUE: VALLECULAR, PYRIFORM AND POSTERIOR WALL, MILD-MODERATE WITH ALL LIQUIDS AND PUREE D, SIGNIFICANT RESIDUAL WITH MECHANICAL SOFT. PT EXHIBITS REDUCED LINGUAL COORDINATION FOR BOLUS FORMATION. PIECEMEAL DEGLUTATION IS NOTED WITH MECHANICAL SOFT. THERE IS REDUCED TONGUE BASE RETRACTION, REDUCED EPIGLOTTIC INVERSION, REDUCED LARYNGEAL ELEVATION, AND REDUCED CONTRATION OF THE POSTERIOR PHARYNGEA L WALL. THE PHARYNGEAL SPACE IS NARROWED DUE TO ANTERIOR CURVATURE OF THE CERVICAL SPINE (MILD OSTEOP HYTES APPROX C1-C4). THERE IS DEEP PENETRATION TO THE LEVEL OF THE VOCAL CORDS WITH THIN LIQUID THAT DOES NOT CLEAR. THERE IS MILD PENETRATION OF TEASPOON NECTAR THAT CLEARS AND DEEP PENETRATION WITH ST RAW THAT IS CLEARED. THERE IS SIGNIFICANT PHARYNGEAL RESIDUE WITH MECHANICAL SOFT AND MILD- MODERATE RESIDUE WITH ALL LIQUIDS AND PUREE. Total fluoroscopy time: 5 minutes and 10 seconds
[2019-06-26] MEDS: ENOXAPARIN 40 MG/0.4 ML SQ SCH (17:16)
[2019-06-27] MEDS: METHYLPREDNISOLONE 40 MG INJ IV SCH ×2 (00:51→08:20)
[2019-06-27] MEDS: IPRATROPIUM BROM 0.5MG/2.5ML NEB PRN (00:55)
[2019-06-27] MEDS: ALBUTEROL 2.5 MG/3 ML NEB SOL NEB PRN (00:55)
--- NOTE | 2019-06-27 02:24 | PN ---
Date of Progress Note: 06/26/2019 Subjective: Patient was seen this morning for followup he was lying in bed in ICU. No new complaint s or problems reported by him. Objective: Vital Signs: Reviewed. HEENT: Unremarkable. Lungs: Clear to auscultation. Heart: Sounds normal. Abdomen: Soft. Bowel sounds normal. No guarding, rigidity, tenderness, or distention. Extremities: No leg edema. Laboratory Data: White count 13.3, hemoglobin 13.7, platelets 161. Sodium 144, potassium 4.1, chlor iveth 114, bicarb 22, BUN 19, creatinine 0.96, glucose 161. Impression: 1.Acute exacerbation of chronic obstructive pulmonary disease. 2.Type 2 diabetes mellitus. Plan: We will go ahead and transfer the patient out of ICU to regular room. Medically, he is stable , hemodynamically he is stable. Continue antibiotics, oxygen, nebulizer treatment. Home medications will be started probably tomorrow. Diabetes will be managed with sliding scale insulin and possible discharge to go home tomorrow depending on his condition. JOHN/MODL Voice ID: [id number] Report ID: [id number]
[2019-06-27] MEDS: AZITHROMYCIN IV 250 MG in NA CHLORIDE 0.9% 250 ML IVPB SCH (05:47)
[2019-06-27] MEDS: CEFTRIAXONE/SWI 1gm 1 GM/10 ML SYR IV SCH (05:47)
[2019-06-27] MEDS: INSULIN -REGULAR HUMAN 50 UNIT/0.5 ML ML SQ SCH ×2 (07:30→12:10)
[2019-06-27 09:44] VITALS: O2SAT 94
[2019-06-27 15:08] VITALS: BP 115/56; TEMP 98.1
--- NOTE | 2019-06-27 21:34 | DS ---
Date of Discharge: 06/27/2019 History: Patient was seen this morning for followup, lying in bed, not in any distress. Physical Examination: Vital Signs: Reviewed. HEENT: Unremarkable. Lungs: Clear to auscultation. Heart: Heart sounds normal. Abdomen: Soft, bowel sounds normal. No guarding, rigidity, tenderness, or distention. Extremities: No leg edema. Laboratory Data: Yesterday, sodium 144, potassium 4.1, chloride 114, bicarb 22, BUN 19, creatinine 0 .96, glucose 161. Yesterday's white count 13.3, hemoglobin 13.7, platelets 169. Upon admission, whi te count 15.1, hemoglobin 15.7, platelets 203. Hospital Course: An 79-year-old male patient admitted to the hospital with cough, congestion, shortn ess of breath. Patient was evaluated in the emergency room, admitted to the hospital. Initially, he was in ICU. Subsequently, he was transferred out of ICU to regular room. His COVID-19 test done in the emergency room came back negative, so isolation will be discontinued. DNR order was written in the chart per my discussion with the patient's family member. IV antibiotic was given. Oxygen nebul izer treatment given. Overall, patient's condition improved. He started eating well and yesterday s peech therapy consult was requested, modified barium swallow test was done and speech therapist has r ecommended pureed diet with nectar thick liquids and some swallowing precautions to be observed and a ll those instructions to be followed at home and return instructions will be given to family regardin g this. Patient is hemodynamically stable. Overall, his condition has improved. Chest x-ray did no t show any pneumonia, but clinically we were concerned about that also. Final Diagnoses: 1.Acute exacerbation of chronic obstructive pulmonary disease. 2.Rule out pneumonia. 3.Type 2 diabetes mellitus. 4.Cerebral palsy. 5.Allergic rhinitis. Discharge Medications And Instructions: 1.Continue all prior home medications. 2.Azithromycin 250 mg p.o. daily for 5 days. 3.Cefuroxime 250 mg twice a day for 1 week. 4.Prednisone 10 mg, take 2 tablets daily for 4 days, then 1 tablet daily for 4 days, then 1/2 tab da emely for 4 days, then stop. 5.Follow up at my office week after next. 6.Continue all prior home medications. JOHN/MODL Voice ID: [id number] Report ID: [id number]
== END 2019-06-27 12:59 | disposition home or self-care (01) | DRG 190 ==
LOC: ER 03:45 → ERHOLD 06:51 → 3RD-ICU 10:59 → 2ND 06-26 11:14
PROVIDERS: ADMIT Internal Medicine; ATTEND Internal Medicine
PROC: 8E0ZXY6 Isolation (ICD-10-PCS; principal; 2019-06-25)
DX: J44.1 Chronic obstructive pulmonary disease with (acute) exacerbation (principal); J18.9 Pneumonia, unspecified organism; J44.0 Chronic obstructive pulmonary disease with (acute) lower respiratory infection; E11.22 Type 2 diabetes mellitus with diabetic chronic kidney disease; J20.9 Acute bronchitis, unspecified; N18.9 Chronic kidney disease, unspecified; G80.9 Cerebral palsy, unspecified; H91.91 Unspecified hearing loss, right ear; J30.9 Allergic rhinitis, unspecified; Z66 Do not resuscitate; Z88.1 Allergy status to other antibiotic agents; Z20.828 Contact with and (suspected) exposure to other viral communicable diseases; Z90.49 Acquired absence of other specified parts of digestive tract; Z79.82 Long term (current) use of aspirin; Z79.52 Long term (current) use of systemic steroids; Z79.899 Other long term (current) drug therapy; W18.30XA Fall on same level, unspecified, initial encounter
CPT/HCPCS: 36415; 71045; 74230; 80048; 81003; 81015; 82550; 82947; 83605; 83880; 84145; 84484; 85025; 87040; 87086; 87088; 87804; 92611; 93005; 93306; 93970; 94640; 94760; 96361; 96365; 96375; 97112; 97116; 97161; 97530; 99285; J0456; J0696; J1650; J2920; J7030; J7040; U0002

== ENCOUNTER 2021-05-21 21:57 | Inpatient (IN) | payer OTHER ==
--- OUTSIDE RECORDS SUMMARY | 2021-05-21 21:59 | XMS REPORT | Continuity of Care Document ---
:1940 Author Organization [facility] Address [address] [place] [address] Care Team Providers Name Role Phone Unavailable Unavailable Unavailable Problems This patient has no known problems. Allergies, Adverse Reactions, Alerts This patient has no known allergies or adverse reactions. Medications This patient has no known medications. Procedures This patient has no known procedures. Results Test Description Test Time Test Comments Results Result Comments Source SARS-COV2/RT-PCR ([facility]) 2019-06-25 10:07:00 Test Item Value Reference Range Interpretation Comme nts SARS-COV2/RT-PCR (test code = [id number]) Not Detected Not Detected, N egative SARS-COV-2 PERFORMING LAB (test code = [facility] [id number]) Negative results do not preclude SARS-CoV-2 infection and should not be used as the sole basis for patient management decisions. Negative results must be combined with clinical observations, patient history, and epidemiological information. A false negative result may occur if a specimen is improperly collected, transported or handled.The limit of detection for this assay is 250 copies/mL.This SARS CoV-2 test is a rapid, real-time RT-PCR test intended for the qualitative detection of nucleic acid from SARS-CoV-2 in a nasopharyngeal swab specimen collected from individuals suspected of COVID-19 by their healthcare provider.This test has not been Food and Drug Administration (FDA) cleared or approved and has been authorized by FDA under an Emergency Use Authorization (EUA). This EUA will be effective until the declaration that circumstances exist justifying the authorization of the emergency use of in vitro diagnostic tests for detection and/or diagnosis of COVID-19 is terminated under Section 564(b)(2) of the Act or the EUA is revoked under Section 564(g) of the Act.Fact Sheet for Healthcare Pro viders:https://www.[employer]/Documents/Xpert%20Xpress%20SARS%20CoV-2/Fact%20Sh eets/302-3802%54UHKT-FWT-9%20HEALTHCARE%20PROVIDERS%20FACT%20SHEET.pdfFact Sheet for Healthcare Patients:https://www.[employer]/Documents/Xpert%20Xpress%20SARS%20CoV-2/Fact%20Sheets/302-3801%20SARS-COV -2%20PATIENT%20FACT%20SHEET.pdfPerforming Laboratory:[facility] [place] [address]
[2021-05-21 23:22] LABS: Hematocrit 42.7 % (39.6-49.0); Lymphocytes % 6.9 % (15.3-44.8); MPV 7.9 fL (7.6-11.3)
[2021-05-21 23:39] LABS: Albumin 2.7 g/dL (3.4-5.0); Bilirubin Total 0.8 mg/dL (0.2-1.0); Potassium 4.5 mmol/L (3.5-5.1); Protein, Total 7.7 g/dL (6.4-8.2); Troponin High Sensitivity 8.6 pg/mL (<58.9)
[2021-05-21] MEDS ORDERED: NA CHLORIDE 0.9% 250 ML ONE (23:58)
[2021-05-21] MEDS ORDERED: AZITHROMYCIN 500 MG INJ IVPB ONE (23:58)
[2021-05-21] MEDS ORDERED: CEFTRIAXONE 1000 MG/VIAL ONE (23:58)
[2021-05-22 00:26] LABS: Protime INR 1.36
--- NOTE | 2021-05-22 00:36 | EDPHYS ---
Physician Documentation [facility] Name: Rigo Lam Age: 81 yrs Sex: Male : 1940 Arrival Date: 05/21/2021 Time: 22:02 Bed 16 Private MD: ED Physician Jorge Salazar HPI: 05/21 22:32 This 81 yrs old Male presents to ER via Unassigned with complaints of Decreased ms3 Appetite, Cough. 22:32 The patient or guardian reports cough. Onset: The symptoms/episode began/occurred 17 ms3 day(s) ago. Severity of symptoms: At their worst the symptoms were moderate, in the emergency department the symptoms are unchanged. Modifying factors: The symptoms are alleviated by nothing, the symptoms are aggravated by nothing. 81-year-old male with past medical history of cerebral palsy and diabetes presents for decreased appetite, increased weakness, cough that began on May 04 after returning from visiting relatives. Patient's janitor caretaker states she is given patient ensures as patient will only take 3 bites of his food. Patient denies pain or any other symptoms. Historical: - Allergies: 22:41 Sulfa (Sulfonamide Antibiotics); ag7 - Home Meds: 22:41 Actos 30 mg Oral tab 1 tab once daily [Active]; aspirin 81 mg Oral TbEC 1 tab once ag7 daily [Active]; meclizine 25 mg Oral tab 1 tab [Active]; probenecid 500 mg Oral tab [Active]; Zyrtec Oral [Active]; multivitamin oral [Active]; 05/22 02:07 levocetirizine oral [Active]; ag7 - PMHx: 05/21 22:41 Cerebral Palsy; Diabetes - NIDDM; ag7 - PSHx: 22:41 laminectomy; Cholecystectomy; ag7 - Immunization history:: Adult Immunizations up to date, Pneumococcal vaccine is up to date, Flu vaccine is up to date. - Social history:: Smoking status: Patient/guardian denies using tobacco, the patient reports quitting approximately 10 years ago. ROS: 22:32 Constitutional: Negative for fever, and chills. Neck: Negative for injury, pain, and ms3 swelling, Cardiovascular: Negative for chest pain, and palpitations. Abdomen/GI: Negative for abdominal pain, nausea, vomiting, diarrhea, and constipation, MS/Extremity: Negative for injury and deformity, Skin: Negative for injury, rash, and discoloration, Neuro: Negative for headache, weakness, numbness, tingling. 22:32 Respiratory: Positive for cough. 22:32 All other systems are negative. Exam: 22:32 Constitutional: This is a well developed, well nourished patient who is awake, alert, ms3 and in no acute distress. Head/Face: Normocephalic, atraumatic. Neck: Trachea midline, no cervical lymphadenopathy. Supple, full range of motion without nuchal rigidity, or vertebral point tenderness. No Meningismus. Chest/axilla: Normal chest wall appearance and motion. Nontender with no deformity. Cardiovascular: Regular rate and rhythm with a normal S1 and S2. No gallops, murmurs, or rubs. Normal PMI, no JVD. No pulse deficits. Abdomen/GI: Soft, non-tender, with normal bowel sounds. No distension or tympany. No guarding or rebound. No evidence of tenderness throughout. Back: No spinal tenderness. No costovertebral tenderness. Full range of motion. Skin: Warm, dry with normal turgor. Normal color with no rashes, no lesions, and no evidence of cellulitis. Neuro: Awake and alert, GCS 15, oriented to person, place, time, and situation. Cranial nerves II-XII grossly intact. Motor strength 5/5 in all extremities. Sensory grossly intact. Cerebellar exam normal. Normal gait. Psych: Awake, alert, with orientation to person, place and time. Behavior, mood, and affect are within normal limits. 22:32 Musculoskeletal/extremity: 23:03 ECG was reviewed by the Attending Physician. ms3 Vital Signs: 22:34 BP 114 / 77 RA Supine (auto/reg); Pulse 102 RA; Resp 21 S; Temp 98.5(O); Pulse Ox 95% ag7 on R/A; Weight 68.04 kg; Height 5 ft. 9 in. (175.26 cm); Pain 0/10; 23:00 BP 124 / 79; Pulse 98; Resp 25 S; Pulse Ox 96% ; Pain 0/10; ag7 23:45 BP 127 / 68 RA Supine (/reg); Pulse 96 RA; Resp 32 S; Pulse Ox 98% on R/A; Pain 0/10; ag7 04/10 00:49 BP 131 / 79; Pulse 103; Resp 25; Pulse Ox 98% on R/A; Pain 0/10; ag7 01:30 BP 119 / 66; Pulse 96; Resp 27 S; Pulse Ox 98% ; Pain 0/10; ag7 05/21 22:34 Body Mass Index 22.15 (68.04 kg, 175.26 cm) ag7 MDM: 05/21 22:26 Patient medically screened. ms3 22:32 Differential Diagnosis: Upper Respiratory Infection Pneumonia Other Electrolyte ms3 abnormality. 05/22 06:02 Data reviewed: vital signs, nurses notes, lab test result(s), radiologic studies. ms3 Counseling: I had a detailed discussion with the patient and/or guardian regarding: the historical points, exam findings, and any diagnostic results supporting the discharge/admit diagnosis, lab results, radiology results, the need for further work-up and treatment in the hospital. ED course: Discussed case with Dr. Bowman accepts patient. Discussed plan for admission with patient and janitor caretaker. Patient patient remained stable in the emergency department. 05/21 22:28 Order name: CBC with Diff; Complete Time: 23:36 ms3 05/21 22:28 Order name: NT PRO-BNP; Complete Time: 23:44 ms3 05/21 22:28 Order name: Troponin HS; Complete Time: 23:44 ms3 05/21 22:28 Order name: CMP; Complete Time: 23:44 ms3 05/21 23:46 Order name: Blood Culture Adult (2) ms3 05/21 23:46 Order name: Lactate; Complete Time: 00:29 ms3 05/21 23:46 Order name: Protime (+inr); Complete Time: 00:29 ms3 05/21 23:46 Order name: Ptt, Activated; Complete Time: 00:29 ms3 05/22 00:33 Order name: COVID-19 SARS RT PCR (Document "Date of Onset" if Symptomatic) ms3 05/22 01:13 Order name: Glucose, Ancillary Testing EDMS 05/22 01:30 Order name: Basic Metabolic Panel EDMS 05/22 01:30 Order name: Basic Metabolic Panel EDMS 05/22 01:30 Order name: CBC with Automated Diff EDMS 05/22 01:30 Order name: CBC with Automated Diff EDMS 05/21 22:28 Order name: XRAY Chest (1 view) ms3 05/21 22:28 Order name: EKG; Complete Time: 22:29 ms3 05/21 22:28 Order name: Cardiac monitoring; Complete Time: 23:14 ms3 05/21 22:28 Order name: EKG - Nurse/Tech; Complete Time: 23:14 ms3 05/21 22:28 Order name: IV Saline Lock; Complete Time: 23:14 ms3 05/21 22:28 Order name: Labs collected and sent; Complete Time: 23:14 ms3 05/21 22:28 Order name: O2 Per Protocol; Complete Time: 23:14 ms3 05/21 22:28 Order name: O2 Sat Monitoring; Complete Time: 23:14 ms3 05/21 23:46 Order name: Accucheck; Complete Time: 01:02 ms3 05/21 23:46 Order name: IV Saline Lock - Large Bore; Complete Time: 00:19 ms3 05/22 01:30 Order name: 60g Consistent Carbohydrate (ADA 1800/2000) EDMS 05/22 01:30 Order name: NT PRO-BNP EDMS 05/22 01:30 Order name: NT PRO-BNP EDMS EC/09 23:03 Rate is 105 beats/min. Rhythm is regular. [place] interval is normal. Clinical impression: ms3 Sinus tachycardia. Interpreted by me. Reviewed by me. Administered Medications: 05/22 00:11 Drug: Rocephin (cefTRIAXone) 1 grams Route: IV; Rate: calculated rate; Site: left ag7 antecubital; 01:29 Follow up: Response: No adverse reaction ag7 00:11 Drug: AZITHromycin 500 mg Route: IVPB; Infused Over: 1 hrs; Site: left antecubital; ag7 01:29 Follow up: Response: No adverse reaction ag7 Disposition Summary: 05/22/21 00:35 Hospitalization Ordered Hospitalization Status: Inpatient Admission ms3 Provider: Cyndie Bowman ms3 Location: Telemetry/[facility] (Inpatient) ms3 Condition: Stable ms3 Problem: new ms3 Symptoms: are unchanged ms3 Bed/Room Type: Standard ms3 Room Assignment: 219(05/22/21 01:48) cs9 Diagnosis - Sepsis without end organ dysfunction ms3 - Unspecified bacterial pneumonia ms3 - Tachycardia, unspecified ms3 Forms: - Medication Reconciliation Form ms3 - SBAR form ms3 Signatures: Dispatcher [employer] EDJorge Marx, DO ms3 Nicolette Benjamin cs9 Ruth Ann Jacinto PA PA sb3 Leonila Garcia RN RN ag7 Corrections: (The following items were deleted from the chart) 05/21 22:44 22:41 Home Meds: Metformin Oral; ag7 ag7 :44 22:41 Home Meds: loratadine 10 mg Oral TbDL 1 tab once daily; ag7 ag7 44 22:41 Home Meds: Tylenol #3 Oral; ag7 ag7 05/22 01:48 00:35 ms3 cs9
--- NOTE | 2021-05-22 00:36 | ER ---
Nurse's Notes [facility] Name: Rigo Lam Age: 81 yrs Sex: Male : 1940 Arrival Date: 05/21/2021 Time: 22:02 Bed 16 Private MD: Diagnosis: Sepsis without end organ dysfunction;Unspecified bacterial pneumonia;Tachycardia, unspecified Presentation: 05/21 22:34 Chief complaint: Patient's son or daughter states: c/o patient not eating for one week ag7 and decline in function. Coronavirus screen: Client denies travel out of the [place] in the last 14 days. At this time, the client does not indicate any symptoms associated with coronavirus-19. Ebola Screen: Patient negative for fever greater than or equal to 101.5 degrees Fahrenheit, and additional compatible Ebola Virus Disease symptoms Patient denies exposure to infectious person. Patient denies travel to an Ebola-affected area in the 21 days before illness onset. Initial Sepsis Screen: Does the patient meet any 2 criteria? No. Patient's initial sepsis screen is negative. Does the patient have a suspected source of infection? No. Patient's initial sepsis screen is negative. Risk Assessment: Do you want to hurt yourself or someone else? Patient reports no desire to harm self or others. Onset of symptoms was May 14, 2021. 22:34 Method Of Arrival: Wheelchair ag7 22:34 Acuity: ARMEN 3 ag7 Historical: - Allergies: 22:41 Sulfa (Sulfonamide Antibiotics); ag7 - Home Meds: 22:41 Actos 30 mg Oral tab 1 tab once daily [Active]; aspirin 81 mg Oral TbEC 1 tab once ag7 daily [Active]; meclizine 25 mg Oral tab 1 tab [Active]; probenecid 500 mg Oral tab [Active]; Zyrtec Oral [Active]; multivitamin oral [Active]; 05/22 02:07 levocetirizine oral [Active]; ag7 - PMHx: 05/21 22:41 Cerebral Palsy; Diabetes - NIDDM; ag7 - PSHx: 22:41 laminectomy; Cholecystectomy; ag7 - Immunization history:: Adult Immunizations up to date, Pneumococcal vaccine is up to date, Flu vaccine is up to date. - Social history:: Smoking status: Patient/guardian denies using tobacco, the patient reports quitting approximately 10 years ago. Screenin:49 Abuse screen: Denies threats or abuse. Nutritional screening: family c/o poor appetite. ag7 Tuberculosis screening: No symptoms or risk factors identified. Fall Risk No fall in past 12 months (0 pts). No secondary diagnosis (0 pts). No IV (0 pts). Ambulatory Aid- None/Bed Rest/Nurse Assist (0 pts). Gait- Weak (10 pts.). Mental Status- Oriented to own ability (0 pts). Total Pritchard Fall Scale indicates No Risk (0-24 pts). Assessment: 22:44 General: Appears in no apparent distress. Behavior is calm, cooperative, inappropriate ag7 for age. Pain: Denies pain. Neuro: Level of Consciousness is awake, alert, obeys commands, Oriented to person, Infantry Senior Sergeant are equal bilaterally Weakness. Cardiovascular: Heart tones S1 S2 present Capillary refill < 3 seconds in bilateral Rhythm is. Respiratory: Airway is patent Trachea midline Respiratory effort is even, unlabored, hacking cough Breath sounds are clear Breath sounds are diminished bilaterally. 22:48 GI: Abdomen is round non-distended, Last BM was May 20, 2021. ag7 05/22 00:00 Reassessment: No changes from previously documented assessment. Patient and/or family ag7 updated on plan of care and expected duration. Pain level reassessed. Patient is alert, oriented x 3, equal unlabored respirations, skin warm/dry/pink. 01:00 Reassessment: No changes from previously documented assessment. Patient and/or family ag7 updated on plan of care and expected duration. Pain level reassessed. Patient is alert, oriented x 3, equal unlabored respirations, skin warm/dry/pink. Patient states symptoms have improved. 01:45 Reassessment: Patient and/or family updated on plan of care and expected duration. Pain ag7 level reassessed. Patient is alert, oriented x 3, equal unlabored respirations, skin warm/dry/pink. Patient denies pain at this time. Patient states symptoms have improved. family at the bedside. 02:31 Reassessment: report call attempt to Jt, not available, pending call back. ag7 02:45 Reassessment: report called to Jie JOHNSTON for room 213. bb Vital Signs: 05/21 22:34 BP 114 / 77 RA Supine (auto/reg); Pulse 102 RA; Resp 21 S; Temp 98.5(O); Pulse Ox 95% ag7 on R/A; Weight 68.04 kg; Height 5 ft. 9 in. (175.26 cm); Pain 0/10; 23:00 BP 124 / 79; Pulse 98; Resp 25 S; Pulse Ox 96% ; Pain 0/10; ag7 23:45 BP 127 / 68 RA Supine (/reg); Pulse 96 RA; Resp 32 S; Pulse Ox 98% on R/A; Pain 0/10; ag7 05/22 00:49 BP 131 / 79; Pulse 103; Resp 25; Pulse Ox 98% on R/A; Pain 0/10; ag7 01:30 BP 119 / 66; Pulse 96; Resp 27 S; Pulse Ox 98% ; Pain 0/10; ag7 05/21 22:34 Body Mass Index 22.15 (68.04 kg, 175.26 cm) ag7 ED Course: 05/21 22:02 Patient arrived in ED. kz 22:03 Jorge Salazar DO is Attending Physician. ms3 22:40 Triage completed. ag7 22:43 XRAY Chest (1 view) In Process Unspecified. EDMS 22:50 Arm band placed on right wrist. ag7 22:51 Patient has correct armband on for positive identification. Bed in low position. Call ag7 light in reach. Side rails up X 1. Adult w/ patient. 23:14 Inserted saline lock: 20 gauge in left antecubital area, using aseptic technique. Blood ag7 collected. IV is patent, is intact, Flushed saline lock 10 ml. 05/22 00:34 Cyndie Bowman MD is Hospitalizing Provider. ms3 Administered Medications: 00:11 Drug: Rocephin (cefTRIAXone) 1 grams Route: IV; Rate: calculated rate; Site: left ag7 antecubital; 01:29 Follow up: Response: No adverse reaction ag7 00:11 Drug: AZITHromycin 500 mg Route: IVPB; Infused Over: 1 hrs; Site: left antecubital; ag7 01:29 Follow up: Response: No adverse reaction ag7 Outcome: 00:35 Decision to Hospitalize by Provider. ms3 02:59 Patient left the ED. bb Signatures: Dispatcher [employer] EDSheryl Bazzinda, RN RN Jorge Lozano DO DO ms3 Cynthia Cardona Angela, RN RN ag7 Corrections: (The following items were deleted from the chart) 05/21 22:41 22:34 Chief complaint: Patient's son or daughter states: c/o patient not eating for two ag7 days and decline in function. ag7 : 22:41 Home Meds: Metformin Oral; ag7 ag7 :44 22:41 Home Meds: loratadine 10 mg Oral TbDL 1 tab once daily; ag7 ag7 :44 22:41 Home Meds: Tylenol #3 Oral; ag7 ag7 23:03 22:44 Neuro: Level of Consciousness is awake, alert, obeys commands, Oriented to ag7 person, [employer] Senior Sergeant are equal bilaterally Weakness ag7 23:25 22:44 General: Appears in no apparent distress. Behavior is calm, cooperative, ag7 inappropriate for age, ag7 23:25 23:03 Respiratory: cough ag7 ag7 23:26 22:44 Respiratory: Airway is patent Trachea midline Respiratory effort is even, ag7 unlabored, Breath sounds are clear Breath sounds are diminished bilaterally. ag7 23:26 22:44 Respiratory: hacking cough ag7 ag7
[2021-05-22] MEDS ORDERED: IPRATROPIUM BROM 0.5MG/2.5ML NEB PRN (01:25)
[2021-05-22] MEDS ORDERED: ALBUTEROL 2.5 MG/3 ML NEB SOL NEB PRN (01:25)
[2021-05-22] MEDS ORDERED: D50W 25 GM/50 ML SYRINGE IV PRN (03:59)
[2021-05-22] MEDS ORDERED: GLUCAGON 1 MG/VIAL IM PRN (03:59)
[2021-05-22] MEDS: INSULIN -REGULAR HUMAN 50 UNIT/0.5 ML ML SQ SCH ×4 (07:30→21:00)
[2021-05-22] MEDS ORDERED: AZITHROMYCIN IV 250 MG in NA CHLORIDE 0.9% 250 ML IVPB SCH (09:00)
[2021-05-22] MEDS ORDERED: NA CHLORIDE 0.9% 0 ML ONE ×2 (09:56→20:28)
[2021-05-22] MEDS: CEFTRIAXONE 1,000 MG in NA CHLORIDE 0.9% 50 ML IVPB SCH ×2 (09:57→20:42)
--- NOTE | 2021-05-22 12:26 | HP ---
Date of Admission: 05/22/2021 Chief Complaint: Cough, congestion, feeling weak. History Of Present Illness: This is an 81-year-old male patient who lives at home with his niece, ca me into emergency room with few days history of cough, chest congestion, and started feeling weak, so family brought him to the emergency room. After he was evaluated, he was admitted to the hospital w ith pneumonia problem. The patient lives at home with his niece, and I did talk to her on the phone this morning, and she informed me that the patient has not had any fever, not able to cough up any mu cus. No vomiting. No diarrhea. No fall or injury. She also informs me that she has medical power of deputy attorney general for patient, and lately patient's memory has been declining. He is able to recognize peo ple, able to tell where he is, but otherwise he tends to forget lot of other details. Allergies: SULFA. Medications: List reviewed. Review of Systems: Respiratory: As mentioned above. MUSEUM ASSISTANT: As mentioned above. Constitutional: As mentioned above. All other systems reviewed and negative. Advance Directive: As per my discussion with the patient's niece, the patient has made a decision in the past of do not resuscitate, and the patient's niece has informed me that that decision is still same which is do not resuscitate in the event of cardiopulmonary arrest, and she does not have any ou t of hospital paperwork for DNR, but she is willing to go ahead and get the paperwork ready for him f or out of hospital DNR. We will have our Social Service assist her with that. Family History: Not pertinent. Social History: Prior history of smoking, not at present time. Use of alcohol, very rarely. The pa tient quit smoking about 12 years ago. Past Surgical History: Cholecystectomy, appendectomy, tonsillectomy, and neck surgery. Past Medical History: Significant for COPD, type 2 diabetes mellitus, cerebral palsy, allergic rhini tis, vertigo, chronic kidney disease stage 3a. Physical Examination: Vital Signs: Height 5 feet 9 inches, weight 129 pounds. Temperature 98.9, pulse 101, respiratory ra te 18, blood pressure 114/59, oxygen saturation 91% on room air. General: Awake, alert, oriented, not in distress. HEENT: Head atraumatic, normocephalic. Conjunctivae nonerythematous. Sclerae white. Mouth, no thr ush or edema noted. Ears/Nose, no mass, lesion, discharge noted. Neck: Supple. No JVD, lymph nodes, bruit, thyromegaly noted. Lungs: Presence of some rhonchi in her lungs, especially with coughing. Not in any respiratory dist ress. Bilateral good equal air entry. Heart: Normal heart sounds, no murmur or gallop. Abdomen: Soft, bowel sounds normal. No guarding, rigidity, tenderness, mass, hepatosplenomegaly, dis tention, or bruit noted. Extremities: No leg edema. No calf tenderness. Skin: No rash, ulcer, cellulitis. Lymphatics: No lymph node enlargement in neck, supraclavicular, infraclavicular region. Neuro: No focal neurological deficit. Chest: Unremarkable. External Genitalia: Deferred. Rectal: Deferred. Laboratory Data: White count 13.7, hemoglobin 13.8, platelets . Sodium 137, potassium 4.5 , chloride 103, bicarb 28, BUN 26, creatinine 1.45, glucose 260. Liver function tests unremarkable. ProBNP 850. Lactic acid 1.6. COVID-19 test negative. Chest x-ray shows pneumonia. Impression: 1.Pneumonia. 2.Chronic kidney disease, stage 3a. 3.Type 2 diabetes mellitus. 4.Chronic obstructive pulmonary disease. 5.Cerebral palsy. 6.Allergic rhinitis. 7.Senile dementia. Plan: We will go ahead and admit the patient to the hospital for further evaluation and management o f this problem. The patient is appropriate for inpatient and is expected to spend 2 midnights in the hospital. We will go ahead and continue home medications per order. We will give empiric antibioti cs per order. Diabetes will be managed with sliding scale insulin. We will go ahead and give DVT pr ophylaxis per order. We will write DNR order in the chart and request Social Service to help make ar rangements for out of hospital DNR paperwork to be completed. I will see him tomorrow for followup. I did call the patient's niece at [phone] and discussed all the details with her as well. JOHN/MODL Voice ID: [id number]
[2021-05-22] MEDS ORDERED: ACETAMINOPHEN 500 MG TAB PO PRN (16:52)
[2021-05-22] MEDS ORDERED: DIPHENHYDRAMINE 25 MG TAB/CAP PO PRN (16:54)
[2021-05-22] MEDS: ENOXAPARIN 30 MG/0.3 ML SQ SCH (17:00)
[2021-05-22] MEDS ORDERED: CEFTRIAXONE 1000 MG/VIAL ONE (20:27)
[2021-05-22] MEDS: MELATONIN 5 MG TABLET PO SCH (20:41)
[2021-05-22] MEDS ORDERED: NA CHLORIDE 0.9% 50 ML ONE (20:43)
[2021-05-23 01:53] VITALS: BMI 19.0
[2021-05-23 05:27] LABS: Hematocrit 38.8 % (39.6-49.0); Lymphocytes % 8.7 % (15.3-44.8); MPV 7.4 fL (7.6-11.3); RBC Red Blood Cell Count 4.29 M/uL (4.33-5.43)
[2021-05-23 05:36] LABS: Potassium 3.8 mmol/L (3.5-5.1)
[2021-05-23] MEDS: INSULIN -REGULAR HUMAN 50 UNIT/0.5 ML ML SQ SCH ×4 (07:30→21:00)
[2021-05-23] MEDS ORDERED: AZITHROMYCIN IV 500 MG in NA CHLORIDE 0.9% 250 ML IVPB SCH (09:00)
[2021-05-23] MEDS: CYANOCOBALAMIN 1,000 MCG TAB PO SCH (09:32)
[2021-05-23] MEDS: ASPIRIN EC 81 MG TAB PO SCH (09:33)
[2021-05-23] MEDS: CETIRIZINE HCL 5 MG TABLET PO SCH (09:33)
[2021-05-23] MEDS: PIOGLITAZONE 15 MG TAB PO SCH (09:36)
[2021-05-23] MEDS: MULTIVITAMIN TAB PO SCH (09:36)
[2021-05-23] MEDS: CEFTRIAXONE 1,000 MG in NA CHLORIDE 0.9% 50 ML IVPB SCH ×2 (09:39→20:52)
--- NOTE | 2021-05-23 09:40 | EKG ---
Test Date: 2021-05-21 Test Time: 22:59:33 Kettle Cleaner: JESUS ALBERTO MEASUREMENT RESULTS: Intervals: Rate: 100 TX: 126 QRSD: 84 QT: 322 QTc: 415 [place]: P: 65 TX: 126 QRS: 62 T: 115 INTERPRETIVE STATEMENTS: Normal sinus rhythm Septal infarct, age undetermined Abnormal ECG Compared to ECG 06/25/2019 04:06:31 Myocardial infarct finding now present Sinus tachycardia no longer present T-wave abnormality no longer present Electronically Signed On 05-23-21 09:35:53 CDT by Gene Abreu
--- NOTE | 2021-05-23 09:40 | EKG ---
Test Date: 2021-05-21 Test Time: 23:03:20 Confectionery Maker: JESUS ALBERTO MEASUREMENT RESULTS: Intervals: Rate: 105 ND: 130 QRSD: 84 QT: 332 QTc: 438 [place]: P: 64 ND: 130 QRS: 60 T: 57 INTERPRETIVE STATEMENTS: Sinus tachycardia Septal infarct, age undetermined Abnormal ECG Compared to ECG 05/21/2021 22:59:33 Sinus rhythm no longer present Myocardial infarct finding still present Electronically Signed On 05-23-21 09:35:52 CDT by Gene Abreu
[2021-05-23] MEDS: AZITHROMYCIN IV 250 MG in NA CHLORIDE 0.9% 250 ML IVPB SCH (09:51)
--- NOTE | 2021-05-23 11:17 | RAD REPORT ---
EXAM DESCRIPTION: RAD - Chest Single View - 05/23/2021 10:53 am CLINICAL HISTORY: pneumonia COMPARISON: May 21 TECHNIQUE: AP portable chest image was obtained 05/23/2021 10:53 am . FINDINGS: Right base consolidation is similar or slightly worse than the May 21 imaging. Patchy inc reased opacification in the lower left lung field is present appearing slightly worse as well. Mid an d upper left lung field clear of new finding. Large bulla filled the upper right lung field similar t o prior imaging. Heart and vasculature are normal. No measurable pleural effusion and no pneumothorax. No acute bony abnormality seen. No acute aortic findings suspected. IMPRESSION: Slight worsening of the right lung base consolidated pneumonia since May 21. Worsening or new patchy airspace opacification in the left lung base.
--- NOTE | 2021-05-23 13:49 | RAD REPORT ---
EXAM DESCRIPTION: RAD - Chest Single View - 05/21/2021 10:42 pm CLINICAL HISTORY: COUGH COMPARISON: None. FINDINGS: Single frontal radiograph view of the chest. Cardiomediastinal silhouette: Atherosclerotic calcification of thoracic aorta. Heart is not enlarged. Lungs: Hyperinflation. Right basilar airspace consolidation. Hazy left basilar opacities. No pneumoth orax or large effusion. Bones: Degenerative change of the spine. Upper abdomen: No abnormality identified. IMPRESSION: 1. Right basilar airspace opacity concerning for pneumonia. Continued radiographic follo w-up to resolution recommended. 2. Hazy left basilar opacity may also represent pneumonia or atelectasis. 3. Obstructive lung disease. Electronically signed by: Rubén Menjivar 05/21/2021 10:51 PM CDT Due to temporary technical issues with the PACS/Fluency reporting system, reports are being signed by the in house radiologist without review as a courtesy to ensure prompt reporting. The interpreting r adiologist is fully responsible for the content of the report.
[2021-05-23] MEDS: ENOXAPARIN 30 MG/0.3 ML SQ SCH (17:34)
[2021-05-23] MEDS: MELATONIN 5 MG TABLET PO SCH (20:55)
[2021-05-23] MEDS: GLUCERNA SHAKE 237 ML CAN PO SCH (20:55)
--- NOTE | 2021-05-24 07:24 | RAD REPORT ---
EXAM DESCRIPTION: RAD - Chest Single View - 05/24/2021 6:08 am CLINICAL HISTORY: pneumonia COMPARISON: Chest Single View dated 05/23/2021; Chest Single View dated 05/21/2021; Chest Single View d ated 06/25/2019; Chest Pa And Lat (2 Views) dated 10/23/2017 FINDINGS: Lines: None. Lungs: Basilar airspace disease which is consolidative at the right lung base is similar to yesterday . Pleural: No significant pleural effusions or pneumothorax. Cardiac: The heart size is within normal limits. Bones: No acute fractures. Other: IMPRESSION: Basilar airspace disease, right greater than left, that is unchanged concerning for pneu monia.
[2021-05-24] MEDS: INSULIN -REGULAR HUMAN 50 UNIT/0.5 ML ML SQ SCH ×4 (07:30→21:00)
[2021-05-24] MEDS ORDERED: NA CHLORIDE 0.9% 250 ML IV ONE (08:26)
[2021-05-24] MEDS: CYANOCOBALAMIN 1,000 MCG TAB PO SCH (09:09)
[2021-05-24] MEDS: AZITHROMYCIN IV 250 MG in NA CHLORIDE 0.9% 250 ML IVPB SCH (09:09)
[2021-05-24] MEDS: CEFTRIAXONE 1,000 MG in NA CHLORIDE 0.9% 50 ML IVPB SCH (09:09)
[2021-05-24] MEDS: CETIRIZINE HCL 5 MG TABLET PO SCH (09:10)
[2021-05-24] MEDS: PIOGLITAZONE 15 MG TAB PO SCH (09:10)
[2021-05-24] MEDS: ASPIRIN EC 81 MG TAB PO SCH (09:10)
[2021-05-24] MEDS: MULTIVITAMIN TAB PO SCH (09:11)
[2021-05-24] MEDS: GLUCERNA SHAKE 237 ML CAN PO SCH ×2 (09:11→21:42)
--- NOTE | 2021-05-24 09:54 | PN ---
Date of Progress Note: 05/23/2021 Subjective: The patient was seen this morning for followup. He was lying in bed, not in distress. Objective: Vital Signs: Reviewed. HEENT: Examination unremarkable. Lungs: Clear to auscultation. Heart: Sounds normal. Abdomen: Soft. Bowel sounds normal. No guarding, rigidity, tenderness, or distention. Extremities: No leg edema. Laboratory Data: White count 12, hemoglobin 12.9, platelets 279. Sodium 140, potassium 3.8, chlorid e 106, bicarb 26, BUN 16, creatinine 0.96, glucose 182. Impression: 1.Pneumonia. 2.Diabetes mellitus type 2. Plan: We will continue current medications. Chest x-ray was ordered to be done today. We will foll ow up on results. We will continue current antibiotics. Physical Therapy to work with the patient, and I will see him tomorrow for followup. JOHN/MODL Voice ID: [id number] Report ID: [id number]
[2021-05-24] MEDS: PIPER TAZO 2.25 GM in NA CHLORIDE 0.9% 50 ML IV SCH ×2 (13:53→17:14)
[2021-05-24] MEDS: ENOXAPARIN 30 MG/0.3 ML SQ SCH (17:14)
[2021-05-24] MEDS ORDERED: IPRATROPIUM BROM 0.5MG/2.5ML NEB PRN (19:00)
[2021-05-24] MEDS ORDERED: ALBUTEROL 2.5 MG/3 ML NEB SOL NEB PRN (19:00)
[2021-05-24] MEDS: MELATONIN 5 MG TABLET PO SCH (21:42)
[2021-05-25] MEDS: PIPER TAZO 2.25 GM in NA CHLORIDE 0.9% 50 ML IV SCH ×3 (00:30→16:23)
[2021-05-25 05:56] LABS: Absolute Lymphocytes (CBC) 1.1 K/uL (0.7-4.9); Hematocrit 39.7 % (39.6-49.0); MPV 7.5 fL (7.6-11.3); RBC Red Blood Cell Count 4.38 M/uL (4.33-5.43)
[2021-05-25 06:12] LABS: Potassium 4.3 mmol/L (3.5-5.1)
[2021-05-25] MEDS: INSULIN -REGULAR HUMAN 50 UNIT/0.5 ML ML SQ SCH ×4 (07:30→21:15)
--- NOTE | 2021-05-25 08:20 | PN ---
Date of Progress Note: 05/24/2021 Subjective: The patient was seen this morning for followup. No new complaints or problems reported by the patient lying in bed. Objective: not in respiratory distress. Heart: Heart sounds normal. Abdomen: Soft, bowel sounds normal. No guarding, rigidity, tenderness, or distention. Extremities: No leg edema. Laboratory Data: Chest x-ray shows bilateral basal infiltrate unchanged from yesterday's chest x-ray . Impression: 1.Pneumonia. 2.Hypotension. 3.Type 2 diabetes mellitus. 4.Dysphagia. 5.Rule out aspiration pneumonia. Plan: After I saw the patient, we were planning to discharge him to go home, but later on, nurse xavier led and informed me that the patient's systolic blood pressure was low, it was around 85-90 systolic and at that time IV fluid bolus was ordered and his blood pressure did come up. We also decided to c hange his antibiotic and discontinue ceftriaxone, azithromycin, and started him on Zosyn because nurs e also informed me that the patient was having some trouble swallowing, so speech therapist was consu lted and antibiotics were changed. I will have to consider possibility of aspiration pneumonia as a likely cause for his pneumonia problem. I will see him tomorrow for followup. Continue current DVT prophylaxis. We will repeat blood work in the morning. JOHN/MODL Voice ID: [id number] Report ID: [id number]
[2021-05-25] MEDS: CETIRIZINE HCL 5 MG TABLET PO SCH (09:19)
[2021-05-25] MEDS: PIOGLITAZONE 15 MG TAB PO SCH (09:19)
[2021-05-25] MEDS: ASPIRIN EC 81 MG TAB PO SCH (09:19)
[2021-05-25] MEDS: CYANOCOBALAMIN 1,000 MCG TAB PO SCH (09:19)
[2021-05-25] MEDS: MULTIVITAMIN TAB PO SCH (09:19)
[2021-05-25] MEDS: GLUCERNA SHAKE 237 ML CAN PO SCH ×2 (09:20→21:10)
--- NOTE | 2021-05-25 11:45 | RAD REPORT ---
EXAM DESCRIPTION: RAD - Chest Single View - 05/24/2021 6:08 am CLINICAL HISTORY: pneumonia COMPARISON: Chest Single View dated 05/23/2021; Chest Single View dated 05/21/2021; Chest Single View dated 06/25/2019; Chest Pa And Lat (2 Views) dated 10/23/2017 FINDINGS: Lines: None. Lungs: Basilar airspace disease which is consolidative at the right lung base is similar to yesterday . Pleural: No significant pleural effusions or pneumothorax. Cardiac: The heart size is within normal limits. Bones: No acute fractures. Other: IMPRESSION: Basilar airspace disease, right greater than left, that is unchanged concerning for pneumonia.
[2021-05-25] MEDS: ENOXAPARIN 30 MG/0.3 ML SQ SCH (16:23)
[2021-05-25] MEDS: MELATONIN 5 MG TABLET PO SCH (21:10)
--- NOTE | 2021-05-25 22:36 | PN ---
Date of Progress Note: 05/25/2021 Subjective: The patient was seen this morning for followup. He was lying in bed, not in any distres s. Denies any new complaints. Objective: Vital Signs: Reviewed. HEENT: Unremarkable. Lungs: Clear to auscultation. Heart: Heart sounds normal. Abdomen: Soft, bowel sounds normal. No guarding, rigidity, tenderness, or distention. Extremities: No leg edema. Laboratory Data: White count 10.9, hemoglobin 13.4, platelets 291. Sodium 140, potassium 4.3, chlor iveth 108, bicarb 28, BUN 19, creatinine 0.98, glucose 173, magnesium 2. Impression: 1.Pneumonia, possible aspiration pneumonia. 2.Type 2 diabetes mellitus. Plan: We will go ahead and continue current antibiotic, which is Zosyn. Continue current diabetes m anagement. We will repeat chest x-ray tomorrow and I will see him tomorrow with possible discharge t omorrow depending on his condition. JOHN/MODL Voice ID: [id number] Report ID: [id number]
[2021-05-26] MEDS: PIPER TAZO 2.25 GM in NA CHLORIDE 0.9% 50 ML IV SCH ×3 (00:37→17:05)
[2021-05-26] MEDS: INSULIN -REGULAR HUMAN 50 UNIT/0.5 ML ML SQ SCH ×3 (07:30→16:30)
--- NOTE | 2021-05-26 07:44 | RAD REPORT ---
EXAM DESCRIPTION: RAD - Chest Single View - 05/26/2021 5:47 am CLINICAL HISTORY: pneumonia COMPARISON: Portable May 24 TECHNIQUE: AP portable chest image was obtained 05/26/2021 5:47 am . FINDINGS: Right base consolidation shows a mild improvement from May 24 imaging. Interstitial and alveolar opacities in the mid and lower left lung field have not changed. Heart size and vasculature are stable. No measurable pleural effusion and no pneumothorax. No acute bony abnormality seen. No acute aortic findings suspected. IMPRESSION: Slight improvement in the right lung base pneumonia since May 24 imaging. Left lung field opacification is stable.
[2021-05-26] MEDS: PIOGLITAZONE 15 MG TAB PO SCH (09:33)
[2021-05-26] MEDS: CETIRIZINE HCL 5 MG TABLET PO SCH (09:34)
[2021-05-26] MEDS: CYANOCOBALAMIN 1,000 MCG TAB PO SCH (09:34)
[2021-05-26] MEDS: GLUCERNA SHAKE 237 ML CAN PO SCH (09:35)
[2021-05-26] MEDS: MULTIVITAMIN TAB PO SCH (09:35)
[2021-05-26] MEDS: ASPIRIN EC 81 MG TAB PO SCH (09:35)
[2021-05-26 10:04] VITALS: O2SAT 94
[2021-05-26] MEDS: ENOXAPARIN 30 MG/0.3 ML SQ SCH (17:10)
[2021-05-26 17:54] VITALS: BP 119/55; TEMP 97.8
--- NOTE | 2021-05-27 01:27 | DS ---
Date of Discharge: 05/26/2021 History: The patient was seen this morning for followup. No new complaints or problems reported by him, lying in bed, not in any distress. Objective: Vital Signs: Reviewed. HEENT: Unremarkable. Lungs: Clear to auscultation. Heart: Heart sounds normal. Abdomen: Soft, bowel sounds normal. No guarding, rigidity, tenderness, or distention. Extremities: No leg edema. Discharge Medications And Instructions: 1.Continue all prior home medications. 2.Take antibiotic Augmentin 500 mg 2 times a day for 10 days and prescription was sent to his [facility]. 3.Follow up at my office next week on 05/30/2021. Call office for appointment. Diet Recommendations: Thin liquids, pureed, solids, and crushed medications with . Laboratory Data: Upon admission, sodium 137, potassium 4.5, chloride 103, bicarb 28, BUN 26, creatin ine 1.45, glucose 260. Liver function tests unremarkable. Last chemistry yesterday; sodium 140, pot assium 4.3, chloride 108, bicarb 28, BUN 19, creatinine 0.98, glucose 173. On admission, white count 13.7, hemoglobin 13.8, platelets 280. Yesterday, white count 10.9, hemoglobin 13.4, platelets 291. Hospital Course: This is an 81-year-old pleasant male patient, admitted to the hospital with cough, congestion, and feeling weak. Please see dictated H and P for more information. After patient was e valuated in the ER, was admitted to the hospital with pneumonia problem. Initially, he was given cef triaxone and azithromycin and that did not show adequate improvement and we noted during this hospita lization that the patient was having some trouble swallowing, so speech therapy was consulted and spe ech therapist evaluated the patient, gave us dietary recommendation and he has done well with this re commended diet with the speech therapist. At that time, we also changed his antibiotic to Zosyn cons idering possibility of aspiration pneumonia and he has responded very well to this. His white count has come down to normal. Chest x-ray today started to show improvement in pneumonia. The patient zambrano s significant generalized weakness and debility with physical therapy. He is total assist, so we did recommend assisted placement to the patient's niece who takes care of him at home and she did no t agree with assisted placement and decided to take him home and reported that she will continue to provide care to him at home. Nurse was advised to make arrangements for home health and physical therapy with home health care services. The patient was discharged to go home in stable condition to day. Final Diagnoses: 1.Probable aspiration pneumonia. 2.Chronic kidney disease, stage IIIA. 3.Anemia, unspecified. 4.Type 2 diabetes mellitus. 5.Chronic obstructive pulmonary disease. 6.Cerebral palsy. 7.Allergic rhinitis. 8.Senile dementia. JOHN/MODL Voice ID: [id number] Report ID: [id number]
== END 2021-05-26 18:30 | disposition home or self-care (01) | DRG 178 ==
LOC: ER 21:57 → ERHOLD 05-22 01:24 → 2ND 05-22 02:49
PROVIDERS: ADMIT Internal Medicine; ATTEND Internal Medicine
DX: J69.0 Pneumonitis due to inhalation of food and vomit (principal); E44.0 Moderate protein-calorie malnutrition; Z68.1 Body mass index [BMI] 19.9 or less, adult; E11.22 Type 2 diabetes mellitus with diabetic chronic kidney disease; N18.31 Chronic kidney disease, stage 3a; J44.9 Chronic obstructive pulmonary disease, unspecified; G80.9 Cerebral palsy, unspecified; J30.9 Allergic rhinitis, unspecified; F03.90 Unspecified dementia, unspecified severity, without behavioral disturbance, psychotic disturbance, mood disturbance, and anxiety; I95.9 Hypotension, unspecified; D64.9 Anemia, unspecified; R13.10 Dysphagia, unspecified; Z88.2 Allergy status to sulfonamides; Z87.891 Personal history of nicotine dependence; Z20.822 Contact with and (suspected) exposure to COVID-19
CPT/HCPCS: 36415; 71045; 80048; 80053; 82947; 83605; 83735; 83880; 84484; 85025; 85610; 85730; 87040; 92610; 93005; 94640; 94760; 96374; 96375; 97110; 97112; 97161; 97530; 99284; J0456; J1650; J1815; J2543; J7050; U0003

== ENCOUNTER 2021-08-04 14:45 | Emergency (ER) | payer OTHER ==
--- OUTSIDE RECORDS SUMMARY | 2021-08-04 14:47 | XMS REPORT | Continuity of Care Document ---
:[address] [facility] Address [address] [place] [address] Care Team Providers Name Role Phone Unavailable Unavailable Unavailable Problems This patient has no known problems. Allergies, Adverse Reactions, Alerts This patient has no known allergies or adverse reactions. Medications This patient has no known medications. Procedures This patient has no known procedures. Results Test Description Test Time Test Comments Results Result Comments Source SARS-COV2/RT-PCR ([facility]) 2019-06-25 10:07:00 Test Item Value Reference Range Interpretation Comme nts SARS-COV2/RT-PCR (test code = 4923493) Not Detected Not Detected, N egative SARS-COV-2 PERFORMING LAB (test code = [facility] [id number]) Negative results do not preclude SARS-CoV-2 infection [...] of the Act.Fact Sheet for Healthcare Pro viders:https://www.light.[employer])/Documents/Xpert%20Xpress%20SARS%20CoV-2/Fact%20Sh eets/302-3802%93GDVB-USC-7%20HEALTHCARE%20PROVIDERS%20FACT%20SHEET.pdfFact Sheet for Healthcare Patients:https://www.InteliVideo.[employer])/Documents/Xpert%20Xpress%20SARS%20CoV-2/Fact%20Sheets/302-3801%20SARS-COV -2%20PATIENT%20FACT%20SHEET.pdfPerforming Laboratory:[facility] [place] [address]
--- NOTE | 2021-08-04 15:57 | RAD REPORT ---
EXAM DESCRIPTION: RAD - Chest Single View - 08/04/2021 3:41 pm CLINICAL HISTORY: low BP COMPARISON: Chest Single View dated 05/26/2021; Chest Single View dated 05/24/2021; Chest Single View dated 05/23/2021; Chest Single View dated 05/21/2021 FINDINGS: Lines: None. Lungs: Ill-defined basilar airspace disease, slightly improved on the right with there is mild decrea se consolidation. Pleural: No significant pleural effusions or pneumothorax. Cardiac: The heart size is within normal limits. Bones: No acute fractures. Other: IMPRESSION: Persistent airspace disease in the lung bases that could reflect pneumonia/pneumonitis, including secondary to aspiration. Modest improvement in aeration at the right lung base compared wit h 05/26/2021.
[2021-08-04] MEDS ORDERED: METHYLPREDNISOLONE 125 MG INJ ONE (16:03)
[2021-08-04] MEDS ORDERED: LEVALBUTEROL 1.25 MG/3 ML NEB ONE (16:03)
[2021-08-04 16:04] LABS: Absolute Lymphocytes (CBC) 1.1 K/uL (0.7-4.9); Hematocrit 48.6 % (39.6-49.0); Lymphocytes % 22.7 % (15.3-44.8); MPV 7.5 fL (7.6-11.3); RBC Red Blood Cell Count 5.16 M/uL (4.33-5.43)
[2021-08-04 16:24] LABS: Potassium 4.6 mmol/L (3.5-5.1)
--- NOTE | 2021-08-04 16:53 | RAD REPORT ---
EXAM DESCRIPTION: CT - Head Brain Wo Cont - 08/04/2021 4:41 pm CLINICAL HISTORY: Syncope, recurrent COMPARISON: CTFACIAL BONES W MPR dated 02/21/2013; HEAD BRAIN W O CONTRAST dated 02/21/2013 TECHNIQUE: All CT scans are performed using dose optimization technique as appropriate and may inclu de automated exposure control or mA/KV adjustment according to patient size. FINDINGS: No intracranial hemorrhage, hydrocephalus or extra-axial fluid collection.No areas of brai n edema or evidence of midline shift. Moderate chronic small vessel ischemic changes. Cerebral atroph y The paranasal sinuses and mastoids are clear. The calvarium is intact. IMPRESSION: No acute intracranial abnormality.
--- NOTE | 2021-08-04 18:58 | ER ---
Nurse's Notes [facility] Name: Rigo Lam Age: 81 yrs Sex: Male : 1940 Arrival Date: 08/04/2021 Time: 14:46 Bed 3 Private MD: Diagnosis: Hypotension, unspecified Presentation: 08/04 14:54 Chief complaint: Pt's caregiver states "we just saw Dr. Bowman and they couldn't get his aa5 blood pressure so he said to bring him here". Pt's caregiver also reports 6 falls over the last 2 weeks. Caregiver reports episode of possible seizure activity on 07/23/21 and one episode today, states "he had never done that before". Coronavirus screen: At this time, the client does not indicate any symptoms associated with coronavirus-19. Ebola Screen: Patient denies travel to an Ebola-affected area in the 21 days before illness onset. Initial Sepsis Screen: Does the patient meet any 2 criteria? No. Patient's initial sepsis screen is negative. Does the patient have a suspected source of infection? No. Patient's initial sepsis screen is negative. Risk Assessment: Do you want to hurt yourself or someone else? Unable to obtain. Onset of symptoms was July 2021. 14:54 Acuity: ARMEN 2 aa5 14:54 Method Of Arrival: Wheelchair aa5 Historical: - Allergies: 14:57 Sulfa (Sulfonamide Antibiotics); aa5 - PMHx: 14:57 Cerebral Palsy; Diabetes - NIDDM; aa5 - PSHx: 14:57 Cholecystectomy; laminectomy; aa5 - Immunization history:: Adult Immunizations unknown. - Social history:: Smoking status: Patient denies any tobacco usage or history of. Screenin:32 Abuse screen: Denies threats or abuse. Denies injuries from another. Nutritional ph screening: No deficits noted. Tuberculosis screening: No symptoms or risk factors identified. Fall Risk Fall in past 12 months (25 points). Secondary diagnosis (15 points) impaired mobility, IV access (20 points). Ambulatory Aid- Crutches/Cane/Walker (15 pts). Gait- Impaired (20 pts.). Mental Status- Oriented to own ability (0 pts). Total Pritchard Fall Scale indicates High Risk Score (45 or more points). Fall prevention measures have been instituted. Side Rails Up X 2 Placed Close to Nursing Station Frequent Obs/Assessments Occuring Family Present and informed to notify staff if the need to leave the bedside As available patient and family educated on Fall Prevention Program and Strategies. Assessment: 15:45 General: Appears in no apparent distress. comfortable, slender, Behavior is calm, ph cooperative, appropriate for age. Pain: Denies pain. Neuro: Level of Consciousness is awake, alert, obeys commands, Oriented to person, place, time, situation, Speech is slurred. Cardiovascular: Capillary refill < 3 seconds in bilateral fingers Patient's skin is warm and dry. Respiratory: Airway is compromised Respiratory effort is even, unlabored, Respiratory pattern is regular, symmetrical, Breath sounds with wheezes. GI: No signs and/or symptoms were reported involving the gastrointestinal system. Derm: Skin is fragile, is thin, Skin is pink, warm \\T\\ dry. 19:31 Reassessment: Patient appears in no apparent distress at this time. Patient and/or ph family updated on plan of care and expected duration. Pain level reassessed. Patient is alert, oriented x 3, equal unlabored respirations, skin warm/dry/pink. Pt d/c home w/ family, instructed to follow up w/ Dr Bowman next week and to return to ED for worsening symptoms. Vital Signs: 14:54 BP 143 / 72; Pulse 90; Resp 18 S; Temp 98.4(TE); Pulse Ox 99% on R/A; aa5 17:18 BP 125 / 64; Pulse 109; Resp 16; Pulse Ox 96% on R/A; ph 17:48 BP 140 / 66; Pulse 106; Resp 14; Pulse Ox 94% on R/A; ph 18:45 BP 133 / 62; Pulse 101; Resp 18; Temp 98.2; Pulse Ox 99% on R/A; ph Vitals: 17:18 Cardiac Rhythm Assessment Sinus tach. ph ED Course: 14:46 Patient arrived in ED. rg4 14:53 Arm band placed on. aa5 14:57 Triage completed. aa5 14:59 Dagoberto Odell MD is Attending Physician. kdr 15:33 Emy Bagley, RN is Primary Nurse. ph 15:43 XRAY Chest (1 view) In Process Unspecified. EDMS 15:50 Initial lab(s) drawn, by me, sent to lab. EKG done, by ED staff, reviewed by Dagoberto Odell MD. Inserted saline lock: 22 gauge in left forearm, using aseptic technique. Blood collected. 16:32 Patient has correct armband on for positive identification. Bed in low position. Call ph light in reach. Side rails up X2. Client placed on continuous cardiac and pulse oximetry monitoring. NIBP monitoring applied. Door closed. Noise minimized. Warm blanket given. 16:42 Head Brain Wo Cont In Process Unspecified. EDMS 19:31 No provider procedures requiring assistance completed. IV discontinued, intact, kd3 bleeding controlled, No redness/swelling at site. Pressure dressing applied. Administered Medications: 16:28 Drug: Xopenex (levalbuterol) (3) 1.25 mg Route: Inhalation; ph 17:00 Follow up: Response: No adverse reaction ph 19:33 Follow up: Response: No adverse reaction ph 16:29 Drug: SOLU-Medrol (methylPrednisoLONE) 60 mg Route: IVP; Site: left forearm; ph 17:00 Follow up: Response: No adverse reaction ph 19:33 Follow up: Response: No adverse reaction ph Medication: 17:18 VIS not applicable for this client. ph Outcome: 18:58 Discharge ordered by . kdr 19:32 Discharged to home with family. kd3 19:32 Condition: stable 19:32 Discharge instructions given to patient, family, Instructed on discharge instructions, follow up and referral plans. Demonstrated understanding of instructions, follow-up care. 19:32 Patient left the ED. ph Signatures: Dispatcher [employer] EDUT Dagoberto Odell MD MD kdr Calderon, Audri, RN RN aa5 Emy Bagley RN RN Elly Graham [facility] Oma Thompson RN RN kd3
--- NOTE | 2021-08-04 18:58 | EDPHYS ---
Physician Documentation [facility] Name: Rigo Lam Age: 81 yrs Sex: Male : 1940 Arrival Date: 08/04/2021 Time: 14:46 Bed 3 Private MD: ED Physician Dagoberto Odell HPI: 08/04 16:35 This 81 yrs old Male presents to ER via Wheelchair with complaints of Low BP, Sent by [facility] Dr. Bowman. 16:35 Patient had gone to Dr. Bowman's office for routine visit. In the process of evaluating kdr the patient, the patient was noted to not have a palpable blood pressure. Patient did not have any discernible change in mental status at the time but given the lack of the blood pressure finding, the patient was sent to the ED for further evaluation. On arrival in the ED, the patient had normal vital signs including blood pressure. Patient had no focal complaints. Again he was at the PCP office for a routine visit. He policy checker who is with him indicates that there has been no acute changes recently that would warrant or signify an acute change in his health status. Knowledge Management Consultant affirms that the patient was in the office for a routine evaluation and not for any specific illness or injury.. Severity of symptoms: At their worst the symptoms were very mild in the emergency department the symptoms are unchanged. The patient has not experienced similar symptoms in the past. The patient has been recently seen by a physician: Dr. Bowman. Historical: - Allergies: 14:57 Sulfa (Sulfonamide Antibiotics); aa5 - PMHx: 14:57 Cerebral Palsy; Diabetes - NIDDM; aa5 - PSHx: 14:57 Cholecystectomy; laminectomy; aa5 - Immunization history:: Adult Immunizations unknown. - Social history:: Smoking status: Patient denies any tobacco usage or history of. ROS: 16:35 Constitutional: Negative for fever, chills, and weight loss, The review of systems was kdr obtained by questioning the policy checker who was present during the patient's stay in the ED Eyes: Negative for injury, pain, redness, and discharge, Neck: Negative for injury, pain, and swelling, Cardiovascular: Negative for chest pain, palpitations, and edema, Respiratory: Negative for shortness of breath, cough, wheezing, and pleuritic chest pain, Abdomen/GI: Negative for abdominal pain, nausea, vomiting, diarrhea, and constipation, Back: Negative for injury and pain, : Negative for injury, bleeding, discharge, and swelling, MS/Extremity: Negative for injury and deformity, Skin: Negative for injury, rash, and discoloration, Neuro: Negative for headache, weakness, numbness, tingling, and seizure activity. Psych: Negative for depression, anxiety, suicide ideation, homicidal ideation, and hallucinations, Allergy/Immunology: Negative for hives, rash, and allergies, Endocrine: Negative for neck swelling, polydipsia, polyuria, polyphagia, and marked weight changes, Hematologic/Lymphatic: Negative for swollen nodes, abnormal bleeding, and unusual bruising. Exam: 16:35 Constitutional: This is a well developed, well nourished patient who is awake, alert, kdr and in no acute distress. Head/Face: Normocephalic, atraumatic. Eyes: Pupils equal round and reactive to light, extra-ocular motions intact. Lids and lashes normal. Conjunctiva and sclera are non-icteric and not injected. Cornea within normal limits. Periorbital areas with no swelling, redness, or edema. Neck: Trachea midline, no thyromegaly or masses palpated, and no cervical lymphadenopathy. Supple, full range of motion without nuchal rigidity, or vertebral point tenderness. No Meningismus. Chest/axilla: Normal chest wall appearance and motion. Nontender with no deformity. No lesions are appreciated. Cardiovascular: Regular rate and rhythm with a normal S1 and S2. No gallops, murmurs, or rubs. Normal PMI, no JVD. No pulse deficits. Respiratory: Lungs have equal breath sounds bilaterally, clear to auscultation and percussion. No rales, rhonchi or wheezes noted. No increased work of breathing, no retractions or nasal flaring. Abdomen/GI: Soft, non-tender, with normal bowel sounds. No distension or tympany. No guarding or rebound. No evidence of tenderness throughout. Back: No spinal tenderness. No costovertebral tenderness. Full range of motion. Skin: Warm, dry with normal turgor. Normal color with no rashes, no lesions, and no evidence of cellulitis. MS/ Extremity: Pulses equal, no cyanosis. Neurovascular intact. Full, normal range of motion. Neuro: Awake and alert, GCS 15, oriented to person, place, time, and situation. Cranial nerves II-XII grossly intact. Motor strength 5/5 in all extremities. Sensory grossly intact. Cerebellar exam normal. Normal gait. Psych: Awake, alert, with orientation to person, place and time. Behavior, mood, and affect are within normal limits. Vital Signs: 14:54 BP 143 / 72; Pulse 90; Resp 18 S; Temp 98.4(TE); Pulse Ox 99% on R/A; aa5 17:18 BP 125 / 64; Pulse 109; Resp 16; Pulse Ox 96% on R/A; ph 17:48 BP 140 / 66; Pulse 106; Resp 14; Pulse Ox 94% on R/A; ph 18:45 BP 133 / 62; Pulse 101; Resp 18; Temp 98.2; Pulse Ox 99% on R/A; ph MDM: 16:35 Data reviewed: vital signs, nurses notes, residential records, lab test result(s), kdr radiologic studies. Counseling: I had a detailed discussion with the patient and/or guardian regarding: the historical points, exam findings, and any diagnostic results supporting the discharge/admit diagnosis, lab results, radiology results. 18:58 Patient medically screened. [facility] 08/04 15:02 Order name: SARS-COV-2 RT PCR (Document "Date of Onset" if Symptomatic); Complete Time: 17:40 08/04 15:14 Order name: Basic Metabolic Panel; Complete Time: 17:40 [facility] 08/04 15:14 Order name: CBC with Diff; Complete Time: 17:40 [facility] 08/04 15:14 Order name: Troponin HS; Complete Time: 17:40 [facility] 08/04 15:14 Order name: XRAY Chest (1 view); Complete Time: 17:40 [facility] 08/04 15:18 Order name: CT Head Brain wo Cont [facility] 08/04 15:14 Order name: EKG; Complete Time: 15:15 [facility] 08/04 15:14 Order name: Cardiac monitoring; Complete Time: 16:28 [facility] 08/04 15:14 Order name: EKG - Nurse/Tech; Complete Time: 16:28 [facility] 08/04 15:14 Order name: IV Saline Lock; Complete Time: 16:28 [facility] 08/04 15:14 Order name: Labs collected and sent; Complete Time: 16:28 [facility] 08/04 15:21 Order name: Head Brain Wo Cont; Complete Time: 17:40 EDMS 08/04 15:14 Order name: O2 Per Protocol; Complete Time: 16: kdr 08/04 15:14 Order name: O2 Sat Monitoring; Complete Time: 16: kdr Administered Medications: 16:28 Drug: Xopenex (levalbuterol) (3) 1.25 mg Route: Inhalation; ph 17:00 Follow up: Response: No adverse reaction ph 19:33 Follow up: Response: No adverse reaction ph 16:29 Drug: SOLU-Medrol (methylPrednisoLONE) 60 mg Route: IVP; Site: left forearm; ph 17:00 Follow up: Response: No adverse reaction ph 19:33 Follow up: Response: No adverse reaction ph Disposition Summary: 08/04/21 18:58 Discharge Ordered Location: Home kdr Problem: an ongoing problem kdr Symptoms: are resolved kdr Condition: Stable kdr Diagnosis - Hypotension, unspecified kdr Followup: kdr - With: Private Physician - When: 5 - 6 days - Reason: If symptoms return, Further diagnostic work-up, Recheck today's complaints, Continuance of care, Re-evaluation by your physician Discharge Instructions: - Discharge Summary Sheet kdr - Hypotension kdr Forms: - Medication Reconciliation Form kdr - Thank You Letter kdr Signatures: Dispatcher [employer] Dagoberto Grier MD MD kdr Briana Patel, RN RN aa5 Emy Bagley RN RN ph
[2021-08-04 19:55] VITALS: BP 133/62; TEMP 98.2; O2SAT 99
--- NOTE | 2021-08-06 17:33 | EKG ---
Test Date: 2021-08-04 Test Time: 15:47:36 Drafter Detail: CINDA MEASUREMENT RESULTS: Intervals: Rate: 92 IA: 142 QRSD: 78 QT: 354 QTc: 437 [place]: P: 57 IA: 142 QRS: 53 T: 77 INTERPRETIVE STATEMENTS: Normal sinus rhythm Septal infarct, age undetermined Abnormal ECG Compared to ECG 05/21/2021 23:03:20 Sinus tachycardia no longer present Myocardial infarct finding still present Electronically Signed On 08-06-21 17:29:39 CDT by Uriel Lobo
== END 2021-08-04 19:32 | disposition home or self-care (01) ==
LOC: ER 14:45
DX: I95.9 Hypotension, unspecified (principal); E11.9 Type 2 diabetes mellitus without complications; Z20.822 Contact with and (suspected) exposure to COVID-19; Z88.2 Allergy status to sulfonamides
CPT/HCPCS: 93005; 85025; 80048; 36415; 84484; 70450; 71045; 96374; 99284; U0003; J2930

== ENCOUNTER 2021-08-12 15:49 | Emergency (ER) | payer OTHER ==
--- NOTE | 2021-08-12 18:04 | RAD REPORT ---
EXAM DESCRIPTION: CT - Hip Right Wo Con - 08/12/2021 5:52 pm CLINICAL HISTORY: Right hip pain status post fall COMPARISON: X-rays August 10, 2021 TECHNIQUE: Computed axial tomography of the right hip were obtained. Coronal and sagittal reconstruc tion was performed. All CT scans are performed using dose optimization technique as appropriate and may include automated exposure control or mA/KV adjustment according to patient size. FINDINGS: Nondisplaced fracture greater trochanter right femur. No dislocation No significant joint effusion IMPRESSION: Nondisplaced fracture greater trochanter right femur
--- NOTE | 2021-08-12 18:45 | ER ---
Nurse's Notes [facility] Name: Rigo Lam Age: 81 yrs Sex: Male : 1940 Arrival Date: 08/12/2021 Time: 15:51 Bed 16 Private MD: Reji Bowman Diagnosis: Non-displaced Right Hip Greater Trochantor Fracture Presentation: 08/12 15:55 Chief complaint: Patient's son or daughter states: about three weeks ago pt was using vg1 walker and went out from under him and fell; has been c/o Right hip pain, went to see Dr Bowman on Sunday and had an Xray done and stated 'possible fx'. To come ED for a CT. Coronavirus screen: Vaccine status: Patient reports being unvaccinated. Client denies travel out of the [place] in the last 14 days. Ebola Screen: Patient denies exposure to infectious person. Patient denies travel to an Ebola-affected area in the 21 days before illness onset. Initial Sepsis Screen: Does the patient meet any 2 criteria? No. Patient's initial sepsis screen is negative. Does the patient have a suspected source of infection? No. Patient's initial sepsis screen is negative. Risk Assessment: Do you want to hurt yourself or someone else? Patient reports no desire to harm self or others. Onset of symptoms was July 22, 2021. 15:55 Method Of Arrival: Wheelchair vg1 15:55 Acuity: ARMEN 3 vg1 Triage Assessment: 15:59 General: Appears uncomfortable, Behavior is calm, cooperative. Pain: Complains of pain vg1 in Right hip Pain currently is 5 out of 10 on a pain scale. Historical: - Allergies: 15:59 Sulfa (Sulfonamide Antibiotics); vg1 - PMHx: 15:59 Cerebral Palsy; Diabetes - NIDDM; vg1 - PSHx: 15:59 Cholecystectomy; laminectomy; vg1 - Immunization history:: Client reports having NOT received the Covid vaccine. - Social history:: Smoking status: Patient/guardian denies using tobacco, the patient reports quitting approximately 8 years ago. Screenin:29 Abuse screen: Denies threats or abuse. Nutritional screening: No deficits noted. [facility] Tuberculosis screening: No symptoms or risk factors identified. Fall Risk None identified. Assessment: 16:29 Reassessment: No changes from previously documented assessment. General: Appears in no 1 apparent distress. Behavior is calm, cooperative, appropriate for age. Pain: Denies pain. Cardiovascular: No deficits noted. Respiratory: No deficits noted. Vital Signs: 15:55 BP 94 / 65; Pulse 95; Resp 20; Temp 98.1; Pulse Ox 97% on R/A; Weight 61.23 kg; Height vg1 5 ft. 9 in. (175.26 cm); Pain 5/10; 17:37 BP 113 / 74; Pulse 68; Resp 20; Pulse Ox 95% on R/A; bh1 18:31 BP 120 / 76; Pulse 66; Resp 20; Pulse Ox 96% on R/A; bh1 15:55 Body Mass Index 19.94 (61.23 kg, 175.26 cm) 1 ED Course: 15:51 Patient arrived in ED. rg4 15:51 Reji Bowman MD is Private Physician. rg4 15:57 Dagoberto Odell MD is Attending Physician. kdr 15:59 Triage completed. 1 15:59 Arm band placed on. vg1 16:16 Katja Dover, VICKIE is Primary Nurse. 1 16:29 No apparent distress. Awaiting for x-ray. bh1 16:29 Patient has correct armband on for positive identification. Bed in low position. Call [facility] light in reach. Adult w/ patient. Pulse ox on. NIBP on. 16:29 No provider procedures requiring assistance completed. Patient did not have IV access [facility] during this emergency room visit. 17:38 No apparent distress. Resting quietly. Awaiting for x-ray. bh1 17:54 Hip Right Wo Con In Process Unspecified. EDMS 18:31 No apparent distress. Resting quietly. Awaiting radiology results. 1 18:43 Chau Fierro MD is Referral Physician. kdr Administered Medications: No medications were administered Medication: 16:29 VIS not applicable for this client. [facility] Outcome: 18:45 Discharge ordered by . kdr 19:01 Discharged to home via wheelchair. bh1 19:01 Condition: good 19:01 Discharge instructions given to family, Instructed on discharge instructions, follow up and referral plans. Demonstrated understanding of instructions, follow-up care. 19:02 Patient left the ED. [facility] Signatures: Dispatcher [employer] EDMS Dagoberto Odell MD MD kdr Dominick, Elly [id number] Pinky Tan, RN RN vg1 Katja Dover RN RN bh1
--- NOTE | 2021-08-12 18:45 | EDPHYS ---
Physician Documentation [facility] Name: Rigo Lam Age: 81 yrs Sex: Male : 1940 Arrival Date: 08/12/2021 Time: 15:51 Bed 16 Private MD: Reji Bowman ED Physician Dagoberto Odell HPI: 08/13 07:07 This 81 yrs old Male presents to ER via Wheelchair with complaints of Hip Pain. kdr 07:07 The patient or guardian reports decreased range of motion, an injury, pain. that kdr occurred at home, sustained from a fall, There is no obvious deformity, The patient is able to bear partial body weight. There is no radiation of the patient's discomfort. The complaints affect the right hip. Onset: The symptoms/episode began/occurred suddenly, 3 week(s) ago. Modifying factors: The symptoms are alleviated by remaining still, the symptoms are aggravated by weight bearing. Associated signs and symptoms: Loss of consciousness: the patient experienced no loss of consciousness, Pertinent positives: None. Severity of symptoms: At their worst the symptoms were mild, in the emergency department the symptoms are unchanged. The patient has not experienced similar symptoms in the past. The patient has not recently seen a physician. 07:07 Dr. Bowman wanted f/u on outpatient plain film which suggested possible hip fracture. kdr Historical: - Allergies: 08/12 15:59 Sulfa (Sulfonamide Antibiotics); vg1 - PMHx: 15:59 Cerebral Palsy; Diabetes - NIDDM; vg1 - PSHx: 15:59 Cholecystectomy; laminectomy; vg1 - Immunization history:: Client reports having NOT received the Covid vaccine. - Social history:: Smoking status: Patient/guardian denies using tobacco, the patient reports quitting approximately 8 years ago. ROS: 08/13 07:07 Constitutional: Negative for fever, chills, and weight loss, Eyes: Negative for injury, kdr pain, redness, and discharge, ENT: Negative for injury, pain, and discharge, Neck: Negative for injury, pain, and swelling, Cardiovascular: Negative for chest pain, palpitations, and edema, Respiratory: Negative for shortness of breath, cough, wheezing, and pleuritic chest pain, Abdomen/GI: Negative for abdominal pain, nausea, vomiting, diarrhea, and constipation, Back: Negative for injury and pain, : Negative for injury, bleeding, discharge, and swelling, Skin: Negative for injury, rash, and discoloration, Neuro: Negative for headache, weakness, numbness, tingling, and seizure activity. Psych: Negative for depression, anxiety, suicide ideation, homicidal ideation, and hallucinations, Allergy/Immunology: Negative for hives, rash, and allergies, Endocrine: Negative for neck swelling, polydipsia, polyuria, polyphagia, and marked weight changes, Hematologic/Lymphatic: Negative for swollen nodes, abnormal bleeding, and unusual bruising. MS/extremity: Positive for injury or acute deformity, decreased range of motion, pain, Negative for Exam: 07:07 Constitutional: This is a well developed, well nourished patient who is awake, alert, kdr and in no acute distress. Head/Face: Normocephalic, atraumatic. Eyes: Pupils equal round and reactive to light, extra-ocular motions intact. Lids and lashes normal. Conjunctiva and sclera are non-icteric and not injected. Cornea within normal limits. Periorbital areas with no swelling, redness, or edema. Neck: Trachea midline, no thyromegaly or masses palpated, and no cervical lymphadenopathy. Supple, full range of motion without nuchal rigidity, or vertebral point tenderness. No Meningismus. Chest/axilla: Normal chest wall appearance and motion. Nontender with no deformity. No lesions are appreciated. Cardiovascular: Regular rate and rhythm with a normal S1 and S2. No gallops, murmurs, or rubs. Normal PMI, no JVD. No pulse deficits. Respiratory: Lungs have equal breath sounds bilaterally, clear to auscultation and percussion. No rales, rhonchi or wheezes noted. No increased work of breathing, no retractions or nasal flaring. Abdomen/GI: Soft, non-tender, with normal bowel sounds. No distension or tympany. No guarding or rebound. No evidence of tenderness throughout. Back: No spinal tenderness. No costovertebral tenderness. Full range of motion. Skin: Warm, dry with normal turgor. Normal color with no rashes, no lesions, and no evidence of cellulitis. Neuro: Awake and alert, GCS 15, oriented to person, place, time, and situation. Cranial nerves II-XII grossly intact. Motor strength 5/5 in all extremities. Sensory grossly intact. Cerebellar exam normal. Normal gait. Psych: Awake, alert, with orientation to person, place and time. Behavior, mood, and affect are within normal limits. 07:07 Musculoskeletal/extremity: Extremities: grossly normal except: noted in the right hip: decreased ROM, pain. Vital Signs: 08/12 15:55 BP 94 / 65; Pulse 95; Resp 20; Temp 98.1; Pulse Ox 97% on R/A; Weight 61.23 kg; Height vg1 5 ft. 9 in. (175.26 cm); Pain 5/10; 17:37 BP 113 / 74; Pulse 68; Resp 20; Pulse Ox 95% on R/A; bh1 18:31 BP 120 / 76; Pulse 66; Resp 20; Pulse Ox 96% on R/A; bh1 15:55 Body Mass Index 19.94 (61.23 kg, 175.26 cm) vg1 MDM: 18:45 Patient medically screened. kdr 08/13 07:07 Data reviewed: vital signs, nurses notes, lab test result(s), radiologic studies. kdr Counseling: I had a detailed discussion with the patient and/or guardian regarding: the historical points, exam findings, and any diagnostic results supporting the discharge/admit diagnosis, radiology results, the need for outpatient follow up. Physician consultation: Chau Fierro MD regarding consult, patient's condition, and will see patient in office, next week. 08/12 16:14 Order name: Hip Right Wo Con; Complete Time: 18:12 EDMS Administered Medications: No medications were administered Disposition Summary: 08/12/21 18:45 Discharge Ordered Location: Home kdr Problem: an ongoing problem kdr Symptoms: are unchanged kdr Condition: Stable kdr Diagnosis - Non-displaced Right Hip Greater Trochantor Fracture kdr Followup: kdr - With: Chau Fierro MD - When: 2 - 3 days - Reason: If symptoms return, Further diagnostic work-up, Recheck today's complaints, Continuance of care, Re-evaluation by your physician Discharge Instructions: - Discharge Summary Sheet kdr - Hip Fracture kdr Forms: - Medication Reconciliation Form kdr - Thank You Letter kdr Signatures: [facility] Dagoberto Odell MD MD kdr Pinky Tan RN RN vg1 Corrections: (The following items were deleted from the chart) 08/12 16:14 16:04 CT RIGHT HIP WO CONTRAST ordered. EDMS EDMS
[2021-08-12 19:08] VITALS: TEMP 98.1
[2021-08-12 19:11] VITALS: BP 120/76; O2SAT 96
== END 2021-08-12 19:02 | disposition home or self-care (01) ==
LOC: ER 15:49
DX: S72.114A Nondisplaced fracture of greater trochanter of right femur, initial encounter for closed fracture (principal); E11.9 Type 2 diabetes mellitus without complications; G80.9 Cerebral palsy, unspecified; Z88.2 Allergy status to sulfonamides
CPT/HCPCS: 73700; 99283

== ENCOUNTER 2023-09-11 14:05 | Emergency (ER) | payer OTHER ==
[2023-09-11] MEDS ORDERED: NA CHLORIDE 0.9% 1,000 ML ONE (14:45)
[2023-09-11] MEDS ORDERED: ONDANSETRON 4 MG/2 ML VIAL ONE (14:45)
--- NOTE | 2023-09-11 15:22 | RAD REPORT ---
[facility] 2[facility]51 pm CLINICAL HISTORY: CHEST PAIN COMPARISON: Chest Single View dated 08/04/2021; Chest Single View dated 05/26/2021; Chest Single View dated 05/24/2021; Chest Single View dated 05/23/2021 TECHNIQUE: Portable AP view of the chest. FINDINGS: Hyperlucency again seen in the right upper to mid lung. Residual right lower lung airspace opacity has since improved. Partial improvement of mild opacification in the left lower lung, with m ild interstitial pattern. No pneumothorax or effusion. The cardiomediastinal contours are unremarkab le. IMPRESSION: Partial improvement of bibasilar airspace opacities as above. The residual left basilar opacities could represent a component of pneumonitis versus scarring.
[2023-09-11 15:24] LABS: Albumin 3.5 g/dL (3.4-5.0); Albumin/Globulin Ratio 0.8 (1.1-1.8); Anion Gap 10.2 mEq/L (5.0-15.0); Bilirubin Total 1.1 mg/dL (0.2-1.0); Globulin 4.2 g/dL (2.3-3.5); Potassium 4.2 mEq/L (3.5-5.1); Protein, Total 7.7 g/dL (6.4-8.2); Troponin High Sensitivity 9.3 pg/mL (<58.9)
[2023-09-11 15:31] LABS: Absolute Basophils 0.1 K/uL (0-0.5); Absolute Lymphocytes (CBC) 0.6 K/uL (0.7-4.9); Absolute Monocytes 0.9 K/uL (0.1-1.3); Absolute Neutrophil 13.7 K/uL (1.8-8.0); Basophils % 0.5 % (0-1.3); Eosinophils % 0.2 % (0-4.4); Hematocrit 48.1 % (39.6-49.0); Hemoglobin 15.8 g/dL (13.6-17.9); Lymphocytes % 4.1 % (15.3-44.8); MCH 30.3 pg (27.0-35.0); MCHC 32.7 g/dL (32.0-36.0); MCV 92.7 fL (80-100); MPV 8.2 fL (7.6-11.3); Monocytes % 5.7 % (3.3-12.3); Neutrophils % 89.5 % (41.7-73.7); Platelets 229 thou/uL (152-406); RBC Red Blood Cell Count 5.19 M/uL (4.33-5.43); Red Cell Distribution Width 16.6 % (12.1-15.2)
--- NOTE | 2023-09-11 17:05 | RAD REPORT ---
EXAM DESCRIPTION: CT - Abdomen Pelvis W Contrast - 09/11/2023 3:51 pm CLINICAL HISTORY: ABD PAIN COMPARISON: No comparisons TECHNIQUE: Thin cut axial CT imaging of the abdomen and pelvis was performed following intravenous a dministration of 100 mL Isovue 300. Multiplanar reformats were generated and reviewed. All CT scans are performed using dose optimization technique as appropriate and may include automated exposure control or mA/KV adjustment according to patient size. FINDINGS: Moderate centrilobular emphysematous changes. Right tendon platelike atelectasis. No other suspicious findings in the lung bases. Circumferential wall thickening along the distal esophagus, m ay represent sequelae of esophagitis or reflux disease. The liver, spleen, and pancreas show no suspicious findings. Gallbladder and biliary tree are also wi thout suspicious finding. Symmetric renal function is seen with no hydronephrosis or suspicious renal mass. No dilated bowel loops or bowel wall thickening. No free air, free fluid or inflammatory stranding. S mall right inguinal hernia containing fluid. No suspicious mass or bulky lymphadenopathy. Moderate to large stool burden in the rectum. The urinary bladder is without significant finding. Mild superior endplate L1 compression deformity, favored to be of chronic nature. No other suspicious bony findings. IMPRESSION: No acute intra-abdominal process. Circumferential wall thickening of the distal esophagus, may represent sequelae of esophagitis or ref lux disease. Mild superior endplate L1 compression deformity, favored to be of chronic nature. Please correlate fo r localized tenderness at that level. Other incidental findings as above.
--- NOTE | 2023-09-11 18:01 | EDPHYS ---
Physician Documentation [facility] Name: Rigo Lam Age: 83 yrs Sex: Male : 1940 Arrival Date: 09/11/2023 Time: 14:05 Bed 17 Private MD: ED Physician Andrea Connors HPI: 09/10 14:29 This 83 yrs old Male presents to ER via Unassigned with complaints of vomiting, chest kb pain. 14:29 Pt is an 83 year old male who presents for vomiting x2-3 today with chest pain that kb started afterwards. EMS reports pt had chili last night and the vomit was consistent with chili. Denies diarrhea, shortness of breath, fever. . Historical: - Allergies: 14:40 Sulfa (Sulfonamide Antibiotics); kc6 - PMHx: 14:40 Cerebral Palsy; Diabetes - NIDDM; kc6 - PSHx: 14:40 Cholecystectomy; laminectomy; kc6 - Immunization history:: Adult Immunizations not up to date. - Infectious Disease History:: Denies. - Social history:: Smoking status: Patient denies any tobacco usage or history of. ROS: 14:30 Constitutional: As per HPI kb Exam: 14:30 Constitutional: This is a well developed, well nourished patient who is awake, alert, kb and in no acute distress. Head/Face: Normocephalic, atraumatic. ENT: Moist Mucous membranes Cardiovascular: Regular rate Respiratory: Respirations even and unlabored. No increased work of breathing. Talking in full sentences Abdomen/GI: Soft, non-tender. No distention Skin: Warm, dry with normal turgor. Normal color. MS/ Extremity: Pulses equal, no cyanosis. Neurovascular intact. Full, normal range of motion. Neuro: Awake and alert, GCS 15, oriented to person, place, time, and situation. Moves all extremities. Normal gait. 15:00 ECG was reviewed by the Attending Physician. kb Vital Signs: 14:39 BP 133 / 99; Pulse 93; Resp 16 S; Pulse Ox 99% on R/A; Weight 58.97 kg (M); kc6 16:45 BP 139 / 87; Pulse 97; Resp 19 S; Pulse Ox 99% on R/A; kc6 17:43 BP 124 / 78; Pulse 90; Resp 18 S; Pulse Ox 100% on R/A; kc6 MDM: 14:18 Patient medically screened. kb 14:30 Data reviewed: vital signs, nurses notes. Historians other than the Patient: EMS: Lawrence momin [facility]. 17:59 Differential diagnosis: gastritis, gastroesophageal reflux disease, myocardia ischemia kb or infarction, non-specific abd pain, pancreatitis. Consideration of Admission/Observation Escalation of care including admission/observation considered. admission considered but serial trops wnl, pain is to epigastric area, ct shows esophagitis, patient tolerating p.o. intake. Counseling: I had a detailed discussion with the patient and/or guardian regarding the historical points, exam findings, and any diagnostic results supporting the discharge/admit diagnosis, lab results, radiology results, the need for outpatient follow up, a surgical services coordinator, to return to the emergency department if symptoms worsen or persist or if there are any questions or concerns that arise at home. 09/10 14:27 Order name: CBC with Diff kb 09/10 14:27 Order name: Troponin HS; Complete Time: 15:24 kb 09/10 14:27 Order name: CMP; Complete Time: 15:24 kb 09/10 14:27 Order name: Lipase; Complete Time: 15:24 kb 09/10 17:10 Order name: Troponin High Sensitivity; Complete Time: 17:59 kb 09/10 14:27 Order name: XRAY Chest (1 view); Complete Time: 15:23 kb 09/10 14:27 Order name: CT Abd/Pelvis - IV Contrast Only; Complete Time: 17:10 kb 09/10 14:27 Order name: EKG; Complete Time: 14:28 kb 09/10 14:27 Order name: Cardiac monitoring; Complete Time: 14:43 kb 09/10 14:27 Order name: EKG - Nurse/Tech; Complete Time: 14:59 kb 09/10 14:27 Order name: IV Saline Lock; Complete Time: 14:43 kb 09/10 14:27 Order name: Labs collected and sent; Complete Time: 14:59 kb 09/10 14:27 Order name: O2 Per Protocol; Complete Time: 14:43 kb 09/10 14:27 Order name: O2 Sat Monitoring; Complete Time: 14:43 kb EC:00 Rate is 95 beats/min. Rhythm is regular. QRS [place] is Normal. CT interval is normal at kb 140 msec. QRS interval is normal at 84 msec. QT interval is normal at 442 msec. Administered Medications: 14:59 Drug: NS 0.9% IV 1000 ml IV at 1000 ml once Route: IV; Rate: 1000 ml; Site: left kc6 forearm; 16:46 Follow up: Response: No adverse reaction; IV Status: Completed infusion; IV Intake: kc6 1000ml 14:59 Drug: Ondansetron IVP 4 mg IVP once; over 2 minutes Route: IVP; Site: left forearm; kc6 16:46 Follow up: Response: No adverse reaction; Nausea is decreased kc6 Disposition Summary: 09/11/23 18:01 Discharge Ordered Notes: Location: Home kb Condition: Stable kb Diagnosis - Esophagitis, unspecified kb Followup: kb - With: Emergency Department - When: As needed - Reason: Worsening of condition Followup: kb - With: Private Physician - When: 2 - 3 days - Reason: Recheck today's complaints, Continuance of care, Re-evaluation by your physician Discharge Instructions: - Discharge Summary Sheet kb - Esophagitis kb Forms: - Medication Reconciliation Form kb - Antibiotic Education kb - Prescription Opioid Use kb - Patient Portal Instructions kb - Leadership Thank You Letter kb Prescriptions: - Protonix 40 mg Oral Tablet - take 1 tablet ORAL route once daily; 30 tablet; Refills: 0, Product Selection kb Permitted Addendum: 09/12/2023 21:29 Co-signature as Attending Physician, Andrea Connors MD I agree with the assessment and c zambrano plan of care. Signatures: Dispatcher [employer] EDMolly Vazquez, TUBE MAN-C TUBE MAN-Ckb Andrea Connors MD MD cha Campbell, Kaitlyn, RN RN kc6 Corrections: (The following items were deleted from the chart) 09/10 14:28 14:28 CBC+H.LAB.BRZ ordered. EDMS EDMS 14:28 14:28 Troponin High Sensitivity+C.LAB.BRZ ordered. EDMS EDMS 14:28 14:28 COMPREHENSIVE METABOLIC PANEL+C.LAB.BRZ ordered. EDMS EDMS 14:28 14:28 LIPASE+C.LAB.BRZ ordered. EDMS EDMS 14:28 14:28 Abdomen Pelvis W Con+CT.RAD.BRZ ordered. EDMS EDMS
--- NOTE | 2023-09-11 18:01 | ER ---
Nurse's Notes [facility] Name: Rigo Lam Age: 83 yrs Sex: Male : 1940 Arrival Date: 09/11/2023 Time: 14:05 Bed 17 Private MD: Diagnosis: Esophagitis, unspecified Presentation: 09/10 14:39 Chief complaint: EMS states: they were toned out for n/v, epigastric pain, and chest kc6 pain. Coronavirus screen: At this time, the client does not indicate any symptoms associated with coronavirus-19. Ebola Screen: No symptoms or risks identified at this time. Initial Sepsis Screen: Does the patient meet any 2 criteria? No. Patient's initial sepsis screen is negative. Does the patient have a suspected source of infection? No. Patient's initial sepsis screen is negative. Risk Assessment: Do you want to hurt yourself or someone else? Patient reports no desire to harm self or others. Onset of symptoms was September 11, 2023. 14:39 Method Of Arrival: EMS: [facility] [place] [id number] 14:39 Acuity: ARMEN 3 kc6 Triage Assessment: 14:40 General: Appears in no apparent distress. comfortable, well groomed, well developed, kc6 Behavior is calm, cooperative, appropriate for age. Pain: Complains of pain in chest and epigastric area. EENT: No signs and/or symptoms were reported regarding the EENT system. Neuro: Level of Consciousness is awake, alert, obeys commands, Oriented to person, place, time, situation, Appropriate for age. Cardiovascular: Reports chest pain, Heart tones S1 S2 present Capillary refill < 3 seconds. Respiratory: Airway is patent Trachea midline Respiratory effort is even, unlabored, Respiratory pattern is regular, symmetrical. GI: Abdomen is flat, non-distended, Bowel sounds present X 4 quads. Reports upper abdominal pain, nausea, vomiting, Patient currently denies diarrhea. : No signs and/or symptoms were reported regarding the genitourinary system. Derm: No signs and/or symptoms reported regarding the dermatologic system. Skin is intact, is healthy with good turgor, Skin is pink, warm \T\ dry. Musculoskeletal: No signs and/or symptoms reported regarding the musculoskeletal system. Circulation, motion, and sensation intact. Capillary refill < 3 seconds, Range of motion: intact in all extremities. Historical: - Allergies: 14:40 Sulfa (Sulfonamide Antibiotics); kc6 - PMHx: 14:40 Cerebral Palsy; Diabetes - NIDDM; kc6 - PSHx: 14:40 Cholecystectomy; laminectomy; kc6 - Immunization history:: Adult Immunizations not up to date. - Infectious Disease History:: Denies. - Social history:: Smoking status: Patient denies any tobacco usage or history of. Screenin:42 [facility] ED Fall Risk Assessment (Adult) History of falling in the last 3 months, kc6 including since admission No falls in past 3 months (0 pts) Confusion or Disorientation No (0 pts) Intoxicated or Sedated No (0 pts) Impaired Gait Yes (1 pt) Mobility Assist Device Used Yes (1 pt) Altered Elimination No (0 pt) Score/Fall Risk Level 0 - 2 = Low Risk. Abuse screen: Denies threats or abuse. Denies injuries from another. Nutritional screening: No deficits noted. Tuberculosis screening: No symptoms or risk factors identified. Assessment: 14:42 Reassessment: please see triage. kc6 15:42 Reassessment: Patient appears in no apparent distress at this time. No changes from 6 previously documented assessment. Patient and/or family updated on plan of care and expected duration. Pain level reassessed. 16:45 Reassessment: Patient appears in no apparent distress at this time. No changes from kc6 previously documented assessment. Patient and/or family updated on plan of care and expected duration. Pain level reassessed. 17:43 Reassessment: Patient appears in no apparent distress at this time. No changes from kc6 previously documented assessment. Patient and/or family updated on plan of care and expected duration. Pain level reassessed. Vital Signs: 14:39 BP 133 / 99; Pulse 93; Resp 16 S; Pulse Ox 99% on R/A; Weight 58.97 kg (M); kc6 16:45 BP 139 / 87; Pulse 97; Resp 19 S; Pulse Ox 99% on R/A; kc6 17:43 BP 124 / 78; Pulse 90; Resp 18 S; Pulse Ox 100% on R/A; kc6 ED Course: 14:17 Patient arrived in ED. bd 14:18 Molly Chopra FNP-C is PHCP. kb 14:18 Andrea Connors MD is Attending Physician. kb 14:39 Klaudia Perdomo, RN is Primary Nurse. kc6 14:40 Triage completed. kc6 14:40 Arm band placed on. kc6 14:42 Patient has correct armband on for positive identification. Placed in gown. Bed in low kc6 position. Call light in reach. Side rails up X2. bus monitor on. Pulse ox on. NIBP on. Door closed. Noise minimized. Lights dimmed. Warm blanket given. Pillow given. 14:42 Maintain EMS IV. Dressing intact. Good blood return noted. Site clean \T\ dry. Gauge \T\ christina 6 site: 20G LFA. 14:53 XRAY Chest (1 view) In Process Unspecified. EDMS 15:52 CT Abd/Pelvis - IV Contrast Only In Process Unspecified. EDMS 16:45 Repositioned patient. Cleaned of incontinence. Linen changed. kc6 17:37 Diet: Patient given snack. Patient given juice. Tolerated well. kc6 18:16 IV discontinued, intact, bleeding controlled, No redness/swelling at site. Pressure ll1 dressing applied. 18:32 No provider procedures requiring assistance completed. kc6 Administered Medications: 14:59 Drug: NS 0.9% IV 1000 ml IV at 1000 ml once Route: IV; Rate: 1000 ml; Site: left kc6 forearm; 16:46 Follow up: Response: No adverse reaction; IV Status: Completed infusion; IV Intake: kc6 1000ml 14:59 Drug: Ondansetron IVP 4 mg IVP once; over 2 minutes Route: IVP; Site: left forearm; kc6 16:46 Follow up: Response: No adverse reaction; Nausea is decreased kc6 Medication: 18:17 VIS not applicable for this client. ll1 Intake: 16:46 IV: 1000ml; Total: 1000ml. kc6 Outcome: 18:01 Discharge ordered by . kb 18:17 Discharged to home via wheelchair, ll1 18:17 Condition: good 18:17 Discharge instructions given to family, Instructed on discharge instructions, follow up and referral plans. medication usage, 18:33 Patient left the ED. kc6 Signatures: Dispatcher [employer] EDMS Molly Chopra, ADRIANO CARTY-Katja Barros Lynsay, RN RN ll1 Perdomo, Klaudia, RN RN kc6
[2023-09-11 20:15] VITALS: BP 124/78; O2SAT 100
[2023-09-11 22:07] LABS: Blood Morphology Comment NOT SEEN (NOT SEEN); Platelet Estimate ADEQ; White Blood Cell Scan OK (OK)
--- NOTE | 2023-09-12 11:45 | EKG ---
Test Date: 2023-09-11 Test Time: 14:49:40 Steel Fabricator: GEE MEASUREMENT RESULTS: Intervals: Rate: 95 WI: 140 QRSD: 84 QT: 352 QTc: 442 Barclay: P: 63 WI: 140 QRS: 48 T: 88 INTERPRETIVE STATEMENTS: Normal sinus rhythm Normal ECG Compared to ECG 08/04/2021 15:47:36 Myocardial infarct finding no longer present Electronically Signed On 09-12-23 11:42:49 CDT by Saw Corado
--- NOTE | 2023-09-12 11:45 | EKG ---
Test Date: 2023-09-11 Test Time: 15:13:17 Director Public: GEE MEASUREMENT RESULTS: Intervals: Rate: 93 GA: 132 QRSD: 80 QT: 394 QTc: 489 Solon: P: 72 GA: 132 QRS: 75 T: 69 INTERPRETIVE STATEMENTS: Normal sinus rhythm Prolonged QT Abnormal ECG Compared to ECG 09/11/2023 14:49:40 Prolonged QT interval now present Electronically Signed On 09-12-23 11:42:47 CDT by Saw Corado
== END 2023-09-11 18:33 | disposition home or self-care (01) ==
LOC: ER 14:05
DX: K20.90 Esophagitis, unspecified without bleeding (principal)
CPT/HCPCS: 85025; 36415; 84484 ×2; 83690; 80053; 74177; 71045; Q9967; J2405; J7030; 93005; 96361; 96374; 99285

== ENCOUNTER 2023-10-07 15:47 | Inpatient (IN) | payer OTHER ==
--- NOTE | 2023-10-07 18:28 | RAD REPORT ---
EXAM DESCRIPTION: RADChest Single View10/07/2023 5:52 pm CLINICAL HISTORY: COUGH COMPARISON: Chest Single View dated 09/11/2023; Chest Single View dated 08/04/2021; Chest Single View dated 05/26/2021; Chest Single View dated 05/24/2021; Abdomen Pelvis W Contrast dated 09/11/2023 TECHNIQUE: Portable AP view of the chest. FINDINGS: Stable mild patchy left basilar opacities. Stable to mildly progressive right basilar patc hy opacities. Hyperlucency and hyperinflation in the right upper to midlung. No pneumothorax or effu sarah. The cardiomediastinal contours are unremarkable. IMPRESSION: Stable to mildly progressive right basilar patchy opacities, could reflect atelectasis o r mild pneumonitis.
[2023-10-07] MEDS ORDERED: LEVALBUTEROL 1.25 MG/3 ML NEB ONE (20:52)
[2023-10-07 21:09] LABS: Absolute Monocytes 1.1 K/uL (0.1-1.3); Absolute Neutrophil 10.7 K/uL (1.8-8.0); Basophils % 0.3 % (0-1.3); Eosinophils % 0.2 % (0-4.4); Hematocrit 47.5 % (39.6-49.0); Hemoglobin 15.9 g/dL (13.6-17.9); Lymphocytes % 7.8 % (15.3-44.8); MCH 30.9 pg (27.0-35.0); MCHC 33.5 g/dL (32.0-36.0); MCV 92.2 fL (80-100); MPV 8.2 fL (7.6-11.3); Monocytes % 8.9 % (3.3-12.3); Neutrophils % 82.8 % (41.7-73.7); Nucleated Red Blood Cells % 0.1 % (0-0); Platelets 222 thou/uL (152-406); RBC Red Blood Cell Count 5.15 M/uL (4.33-5.43); Red Cell Distribution Width 16.7 % (12.1-15.2)
[2023-10-07 21:12] LABS: PT Prothrombin Time 13.1 SECONDS (9.4-12.5); PTT, Activated Partial Thromb 32.6 SECONDS (24.3-36.9); Protime INR 1.18
[2023-10-07 21:21] LABS: SARS-CoV-2 Antigen CONTROL BLUE LINE VIS/BG OK; SARS-CoV-2 Antigen Rapid Res Negative (Negative)
[2023-10-07 22:07] LABS: Albumin 3.7 g/dL (3.4-5.0); Albumin/Globulin Ratio 0.8 (1.1-1.8); Anion Gap 6.2 mEq/L (5.0-15.0); Bilirubin Total 2.1 mg/dL (0.2-1.0); Globulin 4.9 g/dL (2.3-3.5); Potassium 4.2 mEq/L (3.5-5.1); Protein, Total 8.6 g/dL (6.4-8.2)
--- NOTE | 2023-10-07 23:22 | ER ---
Nurse's Notes [facility] Name: Rigo Lam Age: 83 yrs Sex: Male : 1940 Arrival Date: 10/07/2023 Time: 15:47 Bed 3 Private MD: Diagnosis: Pneumonitis;Dyspnea Presentation: 10/06 16:31 Chief complaint: Pt's mother niece/caregiver reports cough, wheezing, and SOB x 2-3 aa5 days ago. Coronavirus screen: cough unrelated to allergies. Ebola Screen: Patient denies travel to an Ebola-affected area in the 21 days before illness onset. Initial Sepsis Screen: Does the patient meet any 2 criteria? HR > 90 bpm. Does the patient have a suspected source of infection? No. Patient's initial sepsis screen is negative. Risk Assessment: Do you want to hurt yourself or someone else? Patient reports no desire to harm self or others. Onset of symptoms was September 2023. 16:31 Acuity: ARMEN 3 aa5 16:31 Method Of Arrival: Wheelchair aa5 Historical: - Allergies: 16:30 Sulfa (Sulfonamide Antibiotics); aa5 - PMHx: 16:30 Cerebral Palsy; Diabetes - NIDDM; aa5 - PSHx: 16:30 Cholecystectomy; laminectomy; aa5 - Immunization history:: Adult Immunizations unknown. - Infectious Disease History:: Denies. - Social history:: Smoking status: Patient denies any tobacco usage or history of. Screenin:47 [facility] ED Fall Risk Assessment (Adult) History of falling in the last 3 months, bm8 including since admission Yes- fall prone (multiple falls) (3 pts) Confusion or Disorientation Yes (5 pts) Intoxicated or Sedated No (0 pts) Impaired Gait Yes (1 pt) Mobility Assist Device Used Yes (1 pt) Altered Elimination Yes (1 pt) Score/Fall Risk Level 3 or more points = High Risk Oriented to surroundings, Maintained a safe environment, Educated pt \T\ family on fall prevention, incl call for assistance when getting out of bed, Assessed \T\ reinforced patient's understanding of fall precautions, Hourly rounding (assess needs \T\ fall precautionary measures) done, Used ambulatory aids as needed (educated on \T\ assisted with), Used gait belt as appropriate Implemented a Fall Risk Plan of Care. Abuse screen: Denies threats or abuse. Nutritional screening: No deficits noted. Tuberculosis screening: No symptoms or risk factors identified. Assessment: 23:47 Reassessment: No changes from previously documented assessment. Patient and/or family bm8 updated on plan of care and expected duration. Pain level reassessed. Patient is alert, oriented x 3, equal unlabored respirations, skin warm/dry/pink. Patient denies pain at this time. General: Appears in no apparent distress. comfortable, Behavior is calm, cooperative, appropriate for age. Pain: Denies pain. Neuro: Level of Consciousness is awake, alert, obeys commands, Oriented to person, situation. Cardiovascular: Heart tones S1 S2 present Capillary refill < 3 seconds Patient's skin is warm and dry. Rhythm is sinus tachycardia. Respiratory: Reports shortness of breath cough that is Airway is patent Trachea midline Respiratory effort is even, unlabored, Respiratory pattern is regular, symmetrical, Breath sounds are clear bilaterally. GI: No signs and/or symptoms were reported involving the gastrointestinal system. : No signs and/or symptoms were reported regarding the genitourinary system. EENT: No signs and/or symptoms were reported regarding the EENT system. Derm: No signs and/or symptoms reported regarding the dermatologic system. Musculoskeletal: No signs and/or symptoms reported regarding the musculoskeletal system. Vital Signs: 16:31 BP 109 / 65; Pulse 89; Resp 18 S; Temp 98(O); Pulse Ox 97% on R/A; aa5 20:46 BP 103 / 88; Pulse 112; Resp 18; Pulse Ox 98% on 2 lpm NC; rv1 23:47 BP 116 / 63; Pulse 112; Resp 23; Temp 98; Pulse Ox 100% on 2 lpm NC; Pain 0/10; bm8 23:47 Pain Scale: Adult bm8 [place] Coma Score: 23:47 Eye Response: spontaneous(4). Motor Response: obeys commands(6). Verbal Response: bm8 oriented(5). Total: 15. ED Course: 15:49 Patient arrived in ED. ra3 16:31 Arm band placed on. aa5 16:33 Triage completed. aa5 17:54 Chest Single View XRAY In Process Unspecified. EDMS 17:56 Molly Chopra FNP-C is PHCP. kb 17:56 Jie Gaytan MD is Attending Physician. kb 20:45 Inserted saline lock: 20 gauge in left upper arm, using aseptic technique. Blood rv1 collected. Flushed with 10 mL NS. 20:46 CBC with Diff Sent. rv1 20:46 CMP Sent. rv1 20:46 Lactate w/ 2H reflex if indic. Sent. rv1 20:46 Protime (+inr) Sent. rv1 20:46 Ptt, Activated Sent. rv1 20:46 SARS RAPID Sent. rv1 20:46 Flu Sent. rv1 23:22 Reji Bowman MD is Hospitalizing Provider. kb 23:34 Antonio Beck, RN is Primary Nurse. bm8 23:47 Patient has correct armband on for positive identification. Placed in gown. Bed in low bm8 position. Call light in reach. Side rails up X2. Adult w/ patient. Provided Education on: need for admit. Client placed on continuous cardiac and pulse oximetry monitoring. NIBP monitoring applied. campus monitor on. Pulse ox on. NIBP on. Sitter at bedside. Door closed. Noise minimized. Warm blanket given. Pillow given. Verbal reassurance given. Head of bed elevated. 23:47 No provider procedures requiring assistance completed. Patient admitted, IV remains in bm8 place. 23:47 Oxygen administration via nasal cannula \T\ 2L/min Response to oxygen therapy: symptoms bm8 improved. Administered Medications: 21:05 Drug: Levalbuterol Inhalation 1.25 mg Inhalation once Route: Inhalation; vc1 10/07 01:08 Follow up: Response: No adverse reaction [facility] 10/06 23:46 Drug: Rocephin IV 1 grams IV at calculated rate once; Given slow IV push per pharmacy [facility] instructions Route: IV; Rate: calculated rate; Site: left antecubital; 10/07 01:08 Follow up: Response: No adverse reaction; IV Status: Completed infusion; IV Intake: bm8 100ml 10/06 23:47 Drug: MethylPrednisoLONE IVP 40 mg IVP once Route: IVP; Site: left antecubital; 8 10/07 01:08 Follow up: Response: No adverse reaction [facility] 00:00 Drug: Zithromax IVPB 500 mg IVPB once over 1 hrs; mix in 250 mL NS Route: IVPB; Infused 8 Over: 1 hrs; Site: left antecubital; 01:08 Follow up: Response: No adverse reaction; IV Status: Completed infusion; IV Intake: bm8 250ml 00:06 Drug: Albuterol Inhalation 2.5 mg Inhalation once Route: Inhalation; bm8 01:08 Follow up: Response: No adverse reaction bm8 00:06 Drug: Ipratropium Inhalation Aerosol 0.5 mg Inhalation once Route: Inhalation; bm8 01:07 Follow up: Response: No adverse reaction bm8 Medication: 10/06 23:47 VIS not applicable for this client. bm8 Intake: 10/07 01:08 IV: 250ml; Total: 250ml. bm8 01:08 IV: 100ml; Total: 350ml. bm8 Outcome: 10/06 23:22 Decision to Hospitalize by Provider. kb 23:47 Admitted to Med/surg accompanied by nurse, via stretcher, room 222, with oxygen, bm8 23:47 Condition: stable 23:47 Instructed on the need for admit, Demonstrated understanding of instructions, follow-up care, 10/07 01:09 Patient left the ED. bm8 Signatures: Dispatcher [employer] EDMS Molly Chopra, SEGMENTAL PAVER INSTALLER-C SEGMENTAL PAVER INSTALLER-CkBriana Brown, RN RN aa5 Cheyenne Lai RN RN 1 Madina Duggan Ruby ra3 Antonio Beck, RN RN bm8
--- NOTE | 2023-10-07 23:22 | EDPHYS ---
Physician Documentation [facility] Name: Rigo Lam Age: 83 yrs Sex: Male : 1940 Arrival Date: 10/07/2023 Time: 15:47 Bed 3 Private MD: ED Physician Jie Gaytan HPI: 10/06 23:29 This 83 yrs old Male presents to ER via Wheelchair with complaints of Breathing kb Difficulty. 23:29 Pt is an 83 year old male who presents for shortness of breath, cough, congestion for 3 kb days. Daughter states symptoms have gotten worse today. Denies fever. . Historical: - Allergies: 16:30 Sulfa (Sulfonamide Antibiotics); aa5 - PMHx: 16:30 Cerebral Palsy; Diabetes - NIDDM; aa5 - PSHx: 16:30 Cholecystectomy; laminectomy; aa5 - Immunization history:: Adult Immunizations unknown. - Infectious Disease History:: Denies. - Social history:: Smoking status: Patient denies any tobacco usage or history of. ROS: 23:23 Constitutional: As per HPI kb Exam: 23:23 Constitutional: This is a well developed, well nourished patient who is awake, alert, kb and in no acute distress. Head/Face: Normocephalic, atraumatic. ENT: Moist Mucous membranes Cardiovascular: Regular rate Abdomen/GI: Soft, non-tender. No distention Skin: Warm, dry with normal turgor. Normal color. MS/ Extremity: Pulses equal, no cyanosis. Neurovascular intact. Full, normal range of motion. Neuro: Awake and alert, GCS 15, oriented to person, place, time, and situation. Moves all extremities. 23:23 Respiratory: mild respiratory distress is noted, Respirations: labored breathing, that is mild, Breath sounds: wheezing: expiratory that is mild, is scattered, 23:59 ECG was reviewed by the Attending Physician. kb Vital Signs: 16:31 BP 109 / 65; Pulse 89; Resp 18 S; Temp 98(O); Pulse Ox 97% on R/A; aa5 20:46 BP 103 / 88; Pulse 112; Resp 18; Pulse Ox 98% on 2 lpm NC; rv1 23:47 BP 116 / 63; Pulse 112; Resp 23; Temp 98; Pulse Ox 100% on 2 lpm NC; Pain 0/10; bm8 23:47 Pain Scale: Adult bm8 [place] Coma Score: 23:47 Eye Response: spontaneous(4). Motor Response: obeys commands(6). Verbal Response: bm8 oriented(5). Total: 15. MDM: 17:57 Patient medically screened. kb 23:27 Differential diagnosis: Bronchitis pneumonia, pulmonary edema. Data reviewed: vital kb signs, nurses notes. Consideration of Admission/Observation Patient was admitted/placed on observation. Escalation of care including admission/observation considered. Management of patient was discussed with the following: Primary Care Provider: Dr Bowman accepts pt for inpatient admission. Wants rocephin, zithromax, neb treatments, mild SS, solumedrol 40mg Q 12 hours. . Historians other than the Patient: Daughter/Son: daughter. Counseling: I had a detailed discussion with the patient and/or guardian regarding the historical points, exam findings, and any diagnostic results supporting the discharge/admit diagnosis, lab results, radiology results, the need for further work-up and treatment in the hospital. 10/06 17:59 Order name: Flu; Complete Time: 21:23 kb 10/06 17:59 Order name: SARS RAPID; Complete Time: 21:23 kb 10/06 18:29 Order name: Blood Culture Adult (2) kb 10/06 18:29 Order name: CBC with Diff; Complete Time: 21:38 kb 10/06 18:29 Order name: CMP; Complete Time: 22:17 kb 10/06 18:29 Order name: Lactate w/ 2H reflex if indic.; Complete Time: 21:38 kb 10/06 18:29 Order name: Protime (+inr); Complete Time: 21:14 kb 10/06 18:29 Order name: Ptt, Activated; Complete Time: 21:14 kb 10/06 16:34 Order name: Chest Single View XRAY; Complete Time: 18:28 aa5 10/06 18:29 Order name: EKG - Nurse/Tech; Complete Time: 21:22 kb 10/06 18:29 Order name: IV Saline Lock - Large Bore; Complete Time: 20:46 kb 10/06 18:29 Order name: Labs collected and sent; Complete Time: 20:46 kb 10/06 18:29 Order name: O2 Per Protocol; Complete Time: 20:46 kb 10/06 18:29 Order name: O2 Sat Monitoring; Complete Time: 20:46 kb 10/06 18:29 Order name: Vital Signs; Complete Time: 21:22 kb EC:59 Rate is 114 beats/min. Rhythm is regular. QRS [place] is Normal. NV interval is normal at kb 124 msec. QRS interval is normal at 84 msec. QT interval is normal at 441 msec. Administered Medications: 21:05 Drug: Levalbuterol Inhalation 1.25 mg Inhalation once Route: Inhalation; vc1 10/07 01:08 Follow up: Response: No adverse reaction bm8 10/06 23:46 Drug: Rocephin IV 1 grams IV at calculated rate once; Given slow IV push per pharmacy bm8 instructions Route: IV; Rate: calculated rate; Site: left antecubital; 10/07 01:08 Follow up: Response: No adverse reaction; IV Status: Completed infusion; IV Intake: bm8 100ml 10/06 23:47 Drug: MethylPrednisoLONE IVP 40 mg IVP once Route: IVP; Site: left antecubital; bm8 10/07 01:08 Follow up: Response: No adverse reaction bm8 00:00 Drug: Zithromax IVPB 500 mg IVPB once over 1 hrs; mix in 250 mL NS Route: IVPB; Infused bm8 Over: 1 hrs; Site: left antecubital; 01:08 Follow up: Response: No adverse reaction; IV Status: Completed infusion; IV Intake: bm8 250ml 00:06 Drug: Albuterol Inhalation 2.5 mg Inhalation once Route: Inhalation; bm8 01:08 Follow up: Response: No adverse reaction bm8 00:06 Drug: Ipratropium Inhalation Aerosol 0.5 mg Inhalation once Route: Inhalation; bm8 01:07 Follow up: Response: No adverse reaction bm8 Disposition Summary: 10/07/23 23:22 Hospitalization Ordered Notes: Hospitalization Status: Inpatient Admission kb Provider: Reji Bowman Location: Telemetry/MedSurg (Inpatient) kb Condition: Stable kb Problem: new kb Symptoms: are unchanged kb Bed/Room Type: Standard kb Room Assignment: 222(10/07/23 23:40) sp Diagnosis - Pneumonitis kb - Dyspnea kb Forms: - Medication Reconciliation Form kb - SBAR form kb - Leadership Thank You Letter kb Signatures: Dispatcher [employer] Valdemar Galiciaistin, REFINING SUPERVISOR-C REFINING SUPERVISOR-Ckb Anastasiya Cheney Audri, RN RN aa5 Cheyenne Lai, RN RN vc1 Antonio Beck, RN RN bm8 Corrections: (The following items were deleted from the chart) 10/06 18:00 18:00 Influenza Screen (A \T\ B)+BA.LAB.BRZ ordered. EDMS EDMS 18:00 18:00 SARS-COV-2 Antigen Rapid+I.LAB.BRZ ordered. EDMS EDMS 18:30 18:29 BLOOD CULTURE*+BA.LAB.BRZ ordered. EDMS EDMS 18:30 18:29 CBC+H.LAB.BRZ ordered. EDMS EDMS 18:30 18:29 COMPREHENSIVE METABOLIC PANEL+C.LAB.BRZ ordered. EDMS EDMS 18:30 18:29 LACTATE+C.LAB.BRZ ordered. EDMS EDMS 18:30 18:29 PROTIME (+INR)+COAG.LAB.BRZ ordered. EDMS EDMS 18:30 18:29 PTT, ACTIVATED+COAG.LAB.BRZ ordered. EDMS EDMS 23:23 23:22 Pneumonia, unspecified organism kb kb 23:40 23:22 kb sp
[2023-10-07] MEDS ORDERED: NA CHLORIDE 0.9% 100 ML ONE (23:37)
[2023-10-07] MEDS ORDERED: AZITHROMYCIN 500 MG INJ IVPB ONE (23:37)
[2023-10-07] MEDS ORDERED: CEFTRIAXONE 1000 MG/VIAL ONE (23:37)
[2023-10-07] MEDS ORDERED: METHYLPREDNISOLONE 40 MG INJ ONE (23:37)
[2023-10-07] MEDS ORDERED: NA CHLORIDE 0.9% 250 ML ONE (23:37)
[2023-10-08] MEDS ORDERED: ALBUTEROL 2.5 MG/3 ML NEB SOL ONE (00:02)
[2023-10-08] MEDS ORDERED: IPRATROPIUM BROM 0.5MG/2.5ML ONE (00:03)
[2023-10-08 01:41] VITALS: BMI 19.2
[2023-10-08] MEDS ORDERED: GLUCAGON 1 MG/VIAL IM PRN (01:42)
[2023-10-08] MEDS ORDERED: D10W 125 ML IV PRN (01:42)
[2023-10-08] MEDS: ACETAMINOPHEN 500 MG TAB PO PRN (02:11)
[2023-10-08] MEDS: BENZONATATE 100 MG CAP PO PRN (02:26)
[2023-10-08] MEDS: ALBUTEROL 2.5 MG/3 ML NEB SOL NEB SCH (03:00)
[2023-10-08] MEDS: IPRATROPIUM BROM 0.5MG/2.5ML NEB SCH (03:00)
[2023-10-08 05:10] LABS: Absolute Lymphocytes (CBC) 0.2 K/uL (0.7-4.9); Absolute Monocytes 0.1 K/uL (0.1-1.3); Absolute Neutrophil 10.9 K/uL (1.8-8.0); Basophils % 0.1 % (0-1.3); Hematocrit 39.2 % (39.6-49.0); Lymphocytes % 1.8 % (15.3-44.8); MCH 30.9 pg (27.0-35.0); MCHC 33.3 g/dL (32.0-36.0); MCV 92.7 fL (80-100); MPV 8.3 fL (7.6-11.3); Neutrophils % 97.1 % (41.7-73.7); Platelets 194 thou/uL (152-406); RBC Red Blood Cell Count 4.22 M/uL (4.33-5.43); Red Cell Distribution Width 16.1 % (12.1-15.2)
[2023-10-08 06:36] LABS: Band Neutrophils 1 % (0-1); Differential Total Cells Count 100; Lymphocytes 1 % (15-42); Segmented Neutrophils 98 % (40-80)
[2023-10-08 06:37] LABS: Blood Morphology Comment NOT SEEN (NOT SEEN); Platelet Estimate ADEQ
[2023-10-08] MEDS: CEFTRIAXONE 1,000 MG in NA CHLORIDE 0.9% 50 ML IVPB SCH (09:26)
[2023-10-08] MEDS: METHYLPREDNISOLONE 40 MG INJ IV SCH (09:26)
[2023-10-08] MEDS: ENOXAPARIN 30 MG/0.3 ML SQ SCH (09:26)
[2023-10-08] MEDS: NA CHLORIDE 0.9% 1,000 ML IV SCH (09:26)
[2023-10-08] MEDS: INSULIN REGULAR (HUMAN) 100 UNIT/ML SQ SCH (09:31)
[2023-10-08] MEDS: PIOGLITAZONE 15 MG TAB PO SCH (09:31)
--- NOTE | 2023-10-08 10:00 | EKG ---
Test Date: 2023-10-07 Test Time: 21:16:44 Speeder Machine Operator: YU MEASUREMENT RESULTS: Intervals: Rate: 114 GA: 124 QRSD: 84 QT: 320 QTc: 441 [place]: P: 19 GA: 124 QRS: 63 T: 88 INTERPRETIVE STATEMENTS: Sinus tachycardia Otherwise normal ECG Compared to ECG 09/11/2023 15:13:17 Sinus rhythm no longer present Prolonged QT interval no longer present Electronically Signed On 10-08-23 09:58:34 CDT by Saw Corado
[2023-10-08] MEDS: AZITHROMYCIN IV 250 MG in NA CHLORIDE 0.9% 250 ML IVPB SCH (12:04)
--- NOTE | 2023-10-08 12:07 | RAD REPORT ---
EXAM DESCRIPTION: CT - Thorax Wo Con - 10/08/2023 8:57 am CLINICAL HISTORY: pneumonia COMPARISON: Chest For Pe Angio dated 05/31/2016; CTANGIO CHEST FOR PE dated 02/20/2015; Abdomen Pelvi s W Contrast dated 09/11/2023 TECHNIQUE: Axial thin cut images of the chest were obtained without IV contrast. Multiplanar reforma ts were generated and reviewed. All CT scans are performed using dose optimization technique as appropriate and may include automated exposure control or mA/KV adjustment according to patient size. FINDINGS: Confluent mild dependent right lower lobe mixed alveolar opacities. Minimal similar centra l opacities in the right middle lobe. Extensive centrilobular apical predominant emphysematous change s with formation of bullae. No pleural thickening or pleural effusion. No pneumothorax. No abnormal mediastinal or hilar masses or lymphadenopathy seen. No significant aortic or pulmonary a rtery findings. Assessment is limited in the absence of IV contrast. No chest wall mass or abnormal axillary lymphadenopathy. Evaluation of the solid abdominal structures reveals no suspicious findings. Stable moderate L1 superior endplate compression deformity, chronic in appearance IMPRESSION: Confluent mild dependent right lower lobe and minimal central right middle lobe airspace opacities, may reflect atelectasis or early airspace disease. Sequelae of extensive COPD with apical bullae bilaterally.
[2023-10-08] MEDS: PNEUMOCOCCAL VACCINE 0.5 ML IMVAC ONE (18:00)
[2023-10-09 05:50] LABS: Absolute Lymphocytes (CBC) 0.4 K/uL (0.7-4.9); Absolute Monocytes 0.2 K/uL (0.1-1.3); Absolute Neutrophil 11.7 K/uL (1.8-8.0); Basophils % 0.1 % (0-1.3); Hematocrit 39.3 % (39.6-49.0); Hemoglobin 13.1 g/dL (13.6-17.9); Lymphocytes % 3.5 % (15.3-44.8); MCHC 33.4 g/dL (32.0-36.0); MCV 92.8 fL (80-100); MPV 8.5 fL (7.6-11.3); Monocytes % 1.8 % (3.3-12.3); Neutrophils % 94.6 % (41.7-73.7); Nucleated Red Blood Cells % 0.1 % (0-0); Platelets 223 thou/uL (152-406); RBC Red Blood Cell Count 4.23 M/uL (4.33-5.43); Red Cell Distribution Width 16.6 % (12.1-15.2)
[2023-10-09 06:00] LABS: Anion Gap 12.2 mEq/L (5.0-15.0); Magnesium 1.8 mg/dL (1.6-2.4); Potassium 4.2 mEq/L (3.5-5.1)
--- NOTE | 2023-10-09 08:05 | HP ---
Date of Admission: 10/07/2023 Chief Complaint: Cough, congestion, shortness of breath. History Of Present Illness: This is an 83-year-old very pleasant male patient, who came into emergen cy room with above-mentioned complaints. The patient lives at home with his niece who takes excellen t care of him at home. He was brought into emergency room with cough, congestion, shortness of breat h, and after he was evaluated, he was admitted to the hospital with pneumonia problem. When I saw bobby oliveira, he was lying in bed, not in distress. Allergies: TO SULFA. Review of Systems: Respiratory: As mentioned above. All other systems reviewed and negative. Medications: He takes pioglitazone 30 mg daily, aspirin 81 mg daily, vitamin B12 500 mcg daily, albu terol inhaler as needed, levocetirizine 5 mg daily, melatonin 10 mg daily at bedtime. Past Medical History: Significant for COPD, type 2 diabetes mellitus, cerebral palsy, allergic rhini tis, vertigo, chronic kidney disease stage IIIA. Past Surgical History: Cholecystectomy, appendectomy, tonsillectomy, neck surgery. Social History: Prior history of smoking, not at present time. Use of alcohol, negative. Family History: Not pertinent. Physical Examination: Vital Signs: Last temperature this morning 97.6, pulse 92, respiratory rate 20, blood pressure 100/6 0, oxygen saturation 96%. Height 5 feet 9 inches, weight 130 pounds. Upon admission, temperature wa s 100.3 degrees Fahrenheit. General: Awake, alert, oriented, not in distress. HEENT: Head atraumatic, normocephalic. Conjunctivae nonerythematous. Sclerae white. Mouth, no thr ush or edema noted. Ears/Nose, no mass, lesion, discharge noted. Neck: Supple. No JVD, lymph nodes, bruit, thyromegaly noted. Lungs: Presence of some rales noted in the right lower lung. Not using any accessory muscles of res piration. Heart: Normal heart sounds, no murmur or gallop. Abdomen: Soft, bowel sounds normal. No guarding, rigidity, tenderness, mass, hepatosplenomegaly, dis tention, or bruit noted. Extremities: No leg edema. No calf tenderness. Skin: No rash, ulcer, cellulitis. Lymphatics: No lymph node enlargement in neck, supraclavicular, infraclavicular region. Neuro: No focal neurological deficit. Chest: Unremarkable. External Genitalia: Deferred. Rectal: Deferred. Laboratory Data: Yesterday white count 12.9, hemoglobin 15.9, platelets 222. Today, white count 11. 2, hemoglobin 13, platelets 194. For chemistry yesterday; sodium 138, potassium 4.2, chloride 107, b icarb 29, BUN 21, creatinine 1.20, glucose 168. Liver function tests unremarkable except total bilir ubin 2.1. Today for chemistry; sodium 138, potassium 4, chloride 109, bicarb 24, BUN 25, creatinine 1.35, glucose 324. Chest x-ray shows stable to mildly progressive density in the right lung base. Impression: 1.Pneumonia. 2.Acute exacerbation of chronic obstructive pulmonary disease. 3.Type 2 diabetes mellitus. 4.Chronic kidney disease, stage IIIA. 5.Cerebral palsy. 6.Allergic rhinitis. Plan: We will go ahead and admit the patient to hospital for further evaluation and management of th is problem. The patient is appropriate for inpatient and is expected to spend 2 midnights in [facility]. For his pneumonia, we will continue antibiotic which is ceftriaxone and azithromycin as started i n the emergency room. We will go ahead and get a chest CT done without contrast to evaluate this den sity in the right lung base region. For COPD exacerbation, we will go ahead and continue current IV steroid which is Solu-Medrol 40 mg every 12 hours and nebulizer treatment per order. Diabetes will b e managed with continuation of home medication which is pioglitazone 30 mg daily and insulin sliding scale. For chronic kidney disease, stage IIIA, no need for further intervention. We will continue I V fluid per order. Monitor blood work. I will see him tomorrow for followup. Total time spent incl udes 80 minutes that includes communication with emergency room provider, review of current emergency room record, review of last hospital admission record from May 22, 2021, and last office visit rec ord and performing today's evaluation and management. JOHN/MODL Voice ID: [id number]
[2023-10-09 08:52] VITALS: O2SAT 94
[2023-10-09 08:59] VITALS: BP 109/63; TEMP 98.1
--- NOTE | 2023-10-09 21:12 | DS ---
Date of Discharge: 10/09/2023 Disposition: Discharged to go home. Physical Examination: HEENT: Unremarkable. Lungs: Clear to auscultation. Not in any respiratory distress. Heart: Sounds normal. Abdomen: Soft. Bowel sounds normal. No guarding, rigidity, tenderness, or distention. Extremities: No leg edema. Laboratory Data: Upon admission, white count 12.9, hemoglobin 15.9, platelets 222. Yesterday, white count 11.2, hemoglobin 13, platelets 194. Today, white count 12.3, hemoglobin 13.1, platelets 223. For chemistry today, sodium 142, potassium 4.2, chloride 112, bicarb 22, BUN 29, creatinine 1.23, es timated GFR 58, glucose 188, magnesium 1.8. CAT scan of the chest shows mild density in the right lo wer lobe and right middle lobe consistent with atelectasis and pneumonia and changes of COPD. Upon a dmission, chemistry shows sodium 138, potassium 4.2, chloride 107, bicarb 29, BUN 21, creatinine 1.20 , glucose 168. Lactic acid 1.6. Liver function tests unremarkable. Discharge Medications And Instructions: 1.Continue all prior home medications. 2.Start new medications as below: a.Prednisone 10 mg take 2 tablets daily for 4 days, then 1 tablet daily for 4 days, then half tablet daily for 4 days, then stop, take it with food. b.Augmentin 500 mg 2 times a day for 1 week. 3.Follow up at my office next week. Hospital Course: This is an 83-year-old pleasant male patient, admitted to the hospital with cough, congestion, shortness of breath. Please see dictated H and P for more information. After patient wa s evaluated in the emergency room, he was admitted to the hospital with pneumonia and acute exacerbat ion of COPD. He was started on IV antibiotic, IV steroid, and also had some volume depletion, so giv en IV fluid. Overall, his condition has improved. Today, he is feeling much better. Denies any new complaints and the patient was discharged to go home in stable condition with above-mentioned medica tions and instructions. Total time spent today 40 minutes. Final Diagnoses: 1.Acute exacerbation of chronic obstructive pulmonary disease. 2.Pneumonia. 3.Type 2 diabetes mellitus. 4.Volume depletion. 5.Anemia, unspecified. JOHN/MODL Voice ID: [id number] Report ID: [id number]
== END 2023-10-09 10:56 | disposition home or self-care (01) | DRG 190 ==
LOC: ER 15:47 → 2ND 23:30
PROVIDERS: ADMIT Internal Medicine; ATTEND Internal Medicine
DX: J44.1 Chronic obstructive pulmonary disease with (acute) exacerbation (principal); J18.9 Pneumonia, unspecified organism; J44.0 Chronic obstructive pulmonary disease with (acute) lower respiratory infection; G80.9 Cerebral palsy, unspecified; J30.9 Allergic rhinitis, unspecified; E86.9 Volume depletion, unspecified; N18.31 Chronic kidney disease, stage 3a; E11.22 Type 2 diabetes mellitus with diabetic chronic kidney disease; D63.1 Anemia in chronic kidney disease; Z88.2 Allergy status to sulfonamides; Z11.52 Encounter for screening for COVID-19; Z90.49 Acquired absence of other specified parts of digestive tract; Z79.82 Long term (current) use of aspirin; Z79.899 Other long term (current) drug therapy
CPT/HCPCS: 36415; 71045; 71250; 80048; 80053; 82947; 83605; 83735; 85025; 85610; 85730; 87040; 87804; 87811; 93005; 94640; 96365; 96375; 99285; J0696; J1650; J2919; J7030; J7050; J7613; J7614; J7644

== ENCOUNTER 2024-02-26 20:25 | Emergency (ER) | payer OTHER ==
[2024-02-26] MEDS ORDERED: ALBUTEROL 2.5 MG/3 ML NEB SOL ONE (21:25)
[2024-02-26] MEDS ORDERED: IPRATROPIUM BROM 0.5MG/2.5ML ONE (21:26)
[2024-02-26] MEDS ORDERED: METHYLPREDNISOLONE 125 MG INJ ONE (21:26)
[2024-02-26 21:42] LABS: Absolute Lymphocytes (CBC) 0.6 K/uL (0.7-4.9); Absolute Monocytes 0.5 K/uL (0.1-1.3); Absolute Neutrophil 9.1 K/uL (1.8-8.0); Basophils % 0.4 % (0-1.3); Eosinophils % 0.4 % (0-4.4); Hematocrit 49.5 % (39.6-49.0); Hemoglobin 16.5 g/dL (13.6-17.9); Lymphocytes % 5.8 % (15.3-44.8); MCH 30.1 pg (27.0-35.0); MCHC 33.4 g/dL (32.0-36.0); MPV 8.2 fL (7.6-11.3); Monocytes % 4.9 % (3.3-12.3); Neutrophils % 88.5 % (41.7-73.7); Platelets 226 thou/uL (152-406); Red Cell Distribution Width 18.4 % (12.1-15.2)
[2024-02-26 21:44] LABS: PT Prothrombin Time 11.9 SECONDS (9.4-12.5); Protime INR 1.13
[2024-02-26 21:56] LABS: Albumin 3.6 g/dL (3.4-5.0); Albumin/Globulin Ratio 0.8 (1.1-1.8); Anion Gap 7.3 mEq/L (5.0-15.0); Bilirubin Direct 0.2 mg/dL (0-0.2); Bilirubin Indirect, Calculated 0.5 mg/dL (0.2-0.8); Bilirubin Total 0.7 mg/dL (0.2-1.0); Globulin 4.3 g/dL (2.3-3.5); Magnesium 2.2 mg/dL (1.6-2.4); Potassium 4.3 mEq/L (3.5-5.1); Protein, Total 7.9 g/dL (6.4-8.2); Troponin High Sensitivity 10.2 pg/mL (<58.9)
--- NOTE | 2024-02-26 22:28 | RAD REPORT ---
Procedure: Chest Single View HISTORY: Shortness of breath COMPARISON: October 2023 FINDINGS: Bulla are present within the upper lobes. Left base is hazy. The heart is normal size. No significant pleural effusion noted. IMPRESSION: The left base is hazy which may indicate pneumonia
[2024-02-26] MEDS ORDERED: NA CHLORIDE 0.9% 500 ML ONE (23:23)
[2024-02-26] MEDS ORDERED: PIPERACIL/TAZO 3.375 GM VIAL IV ONE (23:24)
[2024-02-26] MEDS ORDERED: NA CHLORIDE 0.9% 100 ML ONE (23:25)
[2024-02-27] MEDS ORDERED: NA CHLORIDE 0.9% 500 ML ONE (00:38)
--- NOTE | 2024-02-27 00:45 | RAD REPORT ---
CLINICAL HISTORY: CHEST PAIN. COMPARISON: CT chest, abdomen, and pelvis from October 25, 2023. TECHNIQUE: CT of the chest, abdomen, and pelvis was performed following intravenous administration of iodinated contrast. Oral contrast was not administered. Axial, coronal, and sagittal reconstructions were created and sent to PACS. This exam was performed according to our departmental dose-optimization program, which includes autom ated exposure control, adjustment of the mA and/or kV according to patient size and/or use of iterative reconstruction technique. FINDINGS: Mild motion degradation. Lungs and pleura: Volume loss with prominent opacification in the right upper and lower lobes. Severe pulmonary emphysema. No pleural effusion. No pneumothorax. Mediastinum and neck: Mildly prominent aortopulmonary window mediastinal lymph node. Unremarkable familia earance of the thyroid gland. Cardiac: No cardiomegaly or pericardial effusion. No thoracic aortic aneurysm or dissection. Prominen t mixed atherosclerosis of the aorta. Hepatobiliary: No concerning hepatic lesion identified. The portal veins are patent. The gallbladder is surgically absent. No biliary ductal dilatation. Pancreas: Fatty atrophy. Otherwise unremarkable. Spleen: Unremarkable. Gastrointestinal: No evidence of bowel obstruction or perienteric inflammation. The appendix is susaan l. Small to moderate stool burden in the colon. Moderate stool burden in the rectum. Adrenals: No abnormality identified in either adrenal gland. Renal: No concerning parenchymal abnormality in either kidney. No hydronephrosis or urolithiasis. Bladder/Reproductive: Unremarkable appearance of the urinary bladder by CT technique. Mild prostatome jose g. Vascular/Lymphatics: No lymphadenopathy identified by CT size criteria. Abdominal aorta is normal in caliber. Prominence makes atherosclerosis of the aorta. Musculoskeletal: No concerning osseous lesion identified. Demineralized appearance of the bones. Dog Or Animal Sitter johnson moderate height loss of the L1 vertebral body with no significant bony retropulsion. Moderate bilateral hip osteoarthrosis. Fluid / peritoneum: No significant free fluid. No free intraperitoneal air identified. IMPRESSION 1. Prominent volume loss and opacification in the left lung. Differential includes pneumonia in the appropriate clinical setting. 2. Severe pulmonary emphysema. 3. No acute abnormality identified in the abdomen or pelvis. 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 Transcribed Date/Time: 02/27/2024 12:44 AM
[2024-02-27 01:09] LABS: Arterial Blood Carboxyhemoglob 0.6 % (0-1.5); Blood Gas THB 15.9 g/dl (12-18); Blood O2 Saturation 85.1 % (92-98.5)
--- NOTE | 2024-02-27 01:09 | EDPHYS ---
Physician Documentation [facility] Name: Rigo Lam Age: 84 yrs Sex: Male : 1940 Arrival Date: 02/26/2024 Time: 20:25 Bed 15 Private MD: ED Physician Brian Kerr HPI: 02/25 20:55 This 84 yrs old Male presents to ER via Wheelchair with complaints of Left cp Chest/Abdominal Pain, Decreased Appetite, Pt is not speaking as much as he usually does. 20:55 The patient or guardian reports chest pain that is located primarily in the left lower cp lateral chest. Onset: today. Associated signs and symptoms: Pertinent positives: abdominal pain, decreased appetite, Pertinent negatives: lower extremity pain, lower extremity swelling, fever. Historical: - Allergies: 20:47 Sulfa (Sulfonamide Antibiotics); cm10 - PMHx: 20:47 Cerebral Palsy; Diabetes - NIDDM; cm10 - PSHx: 20:47 Cholecystectomy; laminectomy; cm10 - Immunization history:: Adult Immunizations up to date. - Infectious Disease History:: Denies. - Social history:: Smoking status: Patient/guardian denies using tobacco, the patient reports quitting approximately 010 years ago. ROS: 21:00 Constitutional: Negative for fever, cp 21:00 Neck: Negative for stiffness, cp 21:00 Cardiovascular: Positive for chest pain, of the left lower lateral chest, 21:00 Respiratory: Positive for shortness of breath, at rest. 21:00 Abdomen/GI: Positive for abdominal pain, of the left lateral abdomen, Negative for vomiting, diarrhea, constipation, 21:00 Neuro: Negative for altered mental status, cp 21:00 All other systems are negative, cp Exam: 21:08 Constitutional: The patient appears alert, awake, non-diaphoretic, non-toxic, well cp developed, frail, uncomfortable, 21:08 Head/Face: Normocephalic, atraumatic. cp 21:08 Eyes: Periorbital structures: appear normal, Conjunctiva: normal, no exudate, no injection, Sclera: no appreciated abnormality, Lids and lashes: appear normal, bilaterally, 21:08 ENT: External ear(s): are unremarkable, Nose: is normal, Mouth: Lips: moist, Oral mucosa: moist, Posterior pharynx: Airway: no evidence of obstruction, patent, 21:08 Chest/axilla: Inspection: normal, Palpation: crepitus, is not appreciated, 21:08 Cardiovascular: Rate: tachycardic, Rhythm: regular, Edema: is not appreciated, JVD: is not appreciated, 21: Respiratory: moderate respiratory distress is noted, Respirations: labored breathing, that is moderate, shallow respirations, that is moderate, Breath sounds: decreased breath sounds, that are moderate, throughout, stridor, is not appreciated, 21: Abdomen/GI: Inspection: abdomen appears normal, 21: Skin: cellulitis, is not appreciated, no rash present. 21: Neuro: Orientation: no acute changes, per family, Mentation: no acute changes, per family, :53 ECG was reviewed by the Attending Physician. Vital Signs: 20:46 BP 99 / 62; Pulse 112; Resp 24; Temp 96.8(TE); Pulse Ox 83% on R/A; Weight 65.77 kg; cm10 Height 5 ft. 8 in. ; 02/26 00:32 BP 134 / 72; Pulse 105; Resp 20; Pulse Ox 92% on BIPAP; br2 02:36 BP 112 / 57; Pulse 98; Resp 23; Pulse Ox 93% on BIPAP; oe 02:59 BP 126 / 66; Pulse 101; Resp 25; Pulse Ox 94% on BIPAP; br2 02/25 20:46 Body Mass Index 22.05 (65.77 kg, 172.72 cm) cm10 MDM: 02/25 20:50 Medical Screening Exam initiated 21:00 Differential diagnosis: acute myocardial infarction, pleurisy, pneumonia, pneumothorax, cp pulmonary embolus. 02/26 00:45 Data reviewed: vital signs, nurses notes, lab test result(s), EKG, radiologic studies, CT scan, plain films. 00:45 Consideration of Admission/Observation will transfer for ICU. 00:45 I considered the following discharge prescriptions or medication management in the emergency department Medications were administered in the Emergency Department. See APR. 00:45 Independent interpretation of the following test(s) in the Emergency Department EKG: See my EKG interpretation above. Historians other than the Patient: family member. Care significantly affected by the following chronic conditions: Diabetes, cerebral palsy. Counseling: I had a detailed discussion with the patient and/or guardian regarding the historical points, exam findings, and any diagnostic results supporting the discharge/admit diagnosis, lab results, radiology results, the need to transfer to another facility, for higher level of care. Response to treatment: the patient's symptoms have markedly improved after treatment. 02/25 20:51 Order name: Basic Metabolic Panel; Complete Time: 21:59 cp 02/25 21:59 Interpretation: Normal except: GLUC 226; BUN 31; GFR 55. cp 02/25 20:51 Order name: CBC with Diff; Complete Time: 21:59 cp 02/25 22:00 Interpretation: Normal except: RBC 5.50; HCT 49.5; RDW 18.4; MARY% 88.5; LYM% 5.8; NEUT cp A 9.1; LYMA 0.6. 02/25 20:51 Order name: LFT's; Complete Time: 21:59 cp 02/25 22:00 Interpretation: Normal except: GLOB 4.3; A/G 0.8. cp 02/25 20:51 Order name: Magnesium; Complete Time: 21:59 cp 02/25 20:51 Order name: NT PRO-BNP; Complete Time: 21:59 cp 02/25 22:01 Interpretation: Reviewed. cp 02/25 20:51 Order name: PT-INR; Complete Time: 21:44 cp 02/25 20:51 Order name: Troponin HS; Complete Time: 21:59 cp 02/25 22:00 Interpretation: Reviewed. cp 02/25 20:51 Order name: Lipase; Complete Time: 21:59 cp 02/25 21:13 Order name: Blood Culture Adult (2) cp 02/25 21:13 Order name: Lactate w/ 2H reflex if indic.; Complete Time: 23:11 cp 02/25 23:11 Interpretation: Reviewed. cp 02/25 21:13 Order name: Ptt, Activated; Complete Time: 23:11 cp 02/25 21:13 Order name: Urinalysis w/ reflexes cp 02/25 22:15 Order name: Ghost Lactate-NO COLLECT Timer; Complete Time: 00:10 EDMS 02/26 00:14 Order name: ABG cp 02/26 01:09 Order name: SARS RAPID cp 02/26 01:09 Order name: Influenza Screen (a \T\ B) cp 02/26 01:09 Order name: RSV cp 02/26 01:51 Order name: Lactate Sepsis 2 HR Follow-up EDMS 02/25 20:51 Order name: XRAY Chest (1 view); Complete Time: 23:11 cp 02/25 21:08 Order name: CT Chest, Abdomen, Pelvis - W/Contrast 02/25 21:15 Order name: BIPAP 02/25 20:51 Order name: Cardiac monitoring; Complete Time: 21:23 02/25 20:51 Order name: EKG - Nurse/Tech; Complete Time: 21:23 02/25 20:51 Order name: IV Saline Lock; Complete Time: 21:23 02/25 20:51 Order name: Labs collected and sent; Complete Time: 21:23 02/25 20:51 Order name: O2 Per Protocol; Complete Time: 21:23 02/25 20:51 Order name: O2 Sat Monitoring; Complete Time: 21:24 02/25 21:13 Order name: Accucheck 02/25 21:13 Order name: IV Saline Lock - Large Bore; Complete Time: 21:23 02/25 23:37 Order name: Vital Signs cp EC/14 21:53 Rate is 109 beats/min. Rhythm is regular. MN interval is normal. QRS interval is cp normal. QT interval is normal. Interpreted by me. Reviewed by me. Administered Medications: 21:34 Drug: DuoNeb Nebulize (2.5 mg - 0.5 mg) 3 ml Nebulizer once Route: Nebulizer; aa10 22:30 Follow up: Response: No adverse reaction br2 21:34 Drug: MethylPrednisoLONE IVP 125 mg IVP once Route: IVP; Site: left antecubital; aa10 22:00 Follow up: Response: No adverse reaction br2 23:13 CANCELLED (Physician Discretion): [id number] mg 150 ml IVPB once over 90 mins cp 23:26 Drug: Piperacillin-Tazobactam IVPB 3.375 grams IVPB once over 60 mins; (mix in NS 100 aa10 mL) Route: IVPB; Infused Over: 60 mins; Site: left antecubital; 02/26 01:00 Follow up: IV Status: Completed infusion; IV Intake: 100ml br2 02/25 23:27 Drug: NS 0.9% IV 500 ml 500 ml IV at 1 bolus once; to be given as a bolus over 60 aa10 minutes Volume: 500 ml; Route: IV; Rate: 1 bolus; Site: left antecubital; 02/26 00:30 Follow up: IV Status: Completed infusion; IV Intake: 1000ml br2 00:42 Drug: NS 0.9% IV 500 ml IV at bolus once; to be given as a bolus over 60 minutes Route: br2 IV; Rate: bolus; Site: right forearm; 01:45 Follow up: IV Status: Completed infusion; IV Intake: 1000ml br2 Disposition: 05:19 Co-signature as Attending Physician, Brian Kerr MD I agree with the assessment sp4 and plan of care. I reviewed the patient's care provided by Advanced Practice Provider \T\ agree w/ the diagnosis \T\ care plan. I personally saw the pt \T\ performed a substantive portion of the visit, incldng all aspects of the (History/Exam/Medical Decision Making). 02/27 00:18 Critical Care:. Chart complete. cp Disposition Summary: 02/27/24 01:09 Transfer Ordered Notes: Reason: Higher level of care cp Condition: Fair cp Problem: new cp Symptoms: have improved cp Transfer Location: [facility](02/27/24 01:24) cp Accepting Physician: DR Brina Ceja(02/27/24 03:20) br2 Diagnosis - Acute respiratory failure with hypoxia cp - Severe sepsis without septic shock cp - Other pneumonia, unspecified organism cp Forms: - Medication Reconciliation Form cp - SBAR form cp Critical care time excluding procedures: 00:18 Critical care time: Bedside Care: 6 minutes, Consultation: 25 minutes, Family cp Intervention: 5 minutes. Total time: 36 minutes Signatures: Dispatcher [employer] EDMS Andrea Quiroz PA PA cp Brian Kerr MD MD sp4 Brandie La RN RN cm10 Nancy Butler RN RN br2 Dolly Petty RN RN aa10 Corrections: (The following items were deleted from the chart) 02/25 20:52 20:52 BASIC METABOLIC PANEL+C.LAB.BRZ ordered. EDMS EDMS 20:52 20:52 CBC+H.LAB.BRZ ordered. EDMS EDMS 20:52 20:52 HEPATIC FUNCTION+C.LAB.BRZ ordered. EDMS EDMS 20:52 20:52 MAGNESIUM+C.LAB.BRZ ordered. EDMS EDMS 20:52 20:52 PROBNP+C.LAB.BRZ ordered. EDMS EDMS 20:52 20:52 PROTIME (+INR)+COAG.LAB.BRZ ordered. EDMS EDMS 20:52 20:52 Troponin High Sensitivity+C.LAB.BRZ ordered. EDMS EDMS 20:52 20:52 LIPASE+C.LAB.BRZ ordered. EDMS EDMS 20:52 20:52 Chest Single View+RAD.RAD.BRZ ordered. EDMS EDMS 21:09 21:09 Chest Abdomen Pelvis W Con+CT.RAD.BRZ ordered. EDMS EDMS 23:13 23:12 levofloxacin IVPB 750 mg 150 ml IVPB once over 90 mins ordered. cp cp 23:18 20:55 This 84 yrs old Male presents to ER via Wheelchair with complaints of Abdominal cp Pain, Decreased Appetite, Pt is not speaking as much as he usually does. cp 02/26 01:09 01:09 SARS-COV-2 Antigen Rapid+I.LAB.BRZ ordered. EDMS EDMS 01:09 01:09 Influenza Screen (A \T\ B)+BA.LAB.BRZ ordered. EDMS EDMS 01:24 01:09 doctor cp cp 01:24 01:09 Other Acute Care Facility cp cp 03:20 01:24 DR Brina Ceja cp br2 02/27 00:14 02/26 05:20 Constitutional: Negative for fever, chills, and weight loss, sp4 cp
--- NOTE | 2024-02-27 01:09 | ER ---
Nurse's Notes [facility] Name: Rigo Lam Age: 84 yrs Sex: Male : 1940 Arrival Date: 02/26/2024 Time: 20:25 Bed 15 Private MD: Diagnosis: Acute respiratory failure with hypoxia;Severe sepsis without septic shock;Other pneumonia, unspecified organism Presentation: 02/25 20:46 Chief complaint: Patient states: LUQ abdominal pain and shortness of breath onset cm10 today. Pt had a fall today. Coronavirus screen: Client denies travel out of the [place] in the last 14 days. Ebola Screen: Patient denies travel to an Ebola-affected area in the 21 days before illness onset. Initial Sepsis Screen: Does the patient meet any 2 criteria? HR > 90 bpm. Does the patient have a suspected source of infection? No. Patient's initial sepsis screen is negative. Risk Assessment: Do you want to hurt yourself or someone else? Patient reports no desire to harm self or others. Onset of symptoms was February 26, 2024. 20:46 Method Of Arrival: Wheelchair cm10 20:46 Acuity: ARMEN 2 cm10 Triage Assessment: 20:48 General: Appears uncomfortable, ill, Behavior is appropriate for age. cm10 Historical: - Allergies: 20:47 Sulfa (Sulfonamide Antibiotics); cm10 - PMHx: 20:47 Cerebral Palsy; Diabetes - NIDDM; cm10 - PSHx: 20:47 Cholecystectomy; laminectomy; cm10 - Immunization history:: Adult Immunizations up to date. - Infectious Disease History:: Denies. - Social history:: Smoking status: Patient/guardian denies using tobacco, the patient reports quitting approximately 010 years ago. Screenin:[facility] ED Fall Risk Assessment (Adult) History of falling in the last 3 months, br2 including since admission Yes- single mechanical fall (1 pt) Confusion or Disorientation Yes (5 pts) Intoxicated or Sedated No (0 pts) Impaired Gait Yes (1 pt) Mobility Assist Device Used No (0 pt) Altered Elimination Yes (1 pt) Score/Fall Risk Level 3 or more points = High Risk Oriented to surroundings, Maintained a safe environment. Abuse screen: Denies threats or abuse. Denies injuries from another. Nutritional screening: No deficits noted. Tuberculosis screening: No symptoms or risk factors identified. Assessment: 21:00 Reassessment:. Reassessment: Patient and/or family updated on plan of care and expected br2 duration. Pain level reassessed. General: Appears uncomfortable, Behavior is calm, cooperative, Smells of URINE. General: Appears. Pain: Complains of pain in left lower quadrant. Neuro: Chamberlain Agitation-Sedation Scale (RASS): +1 Restless Level of Consciousness is awake, alert, HARD OF HEARING. Oriented to person. Cardiovascular: Capillary refill < 3 seconds Patient's skin is warm and dry. Respiratory: Airway is patent Respiratory effort is with nasal flaring, Patient placed on BiPAP: Breath sounds are diminished in right posterior upper lobe, right posterior middle lobe and right posterior lower lobe Breath sounds with rales in left posterior upper lobe and left posterior lower lobe. GI: Abdomen is flat, non-distended, Bowel sounds present X 4 quads. Abd is soft Abd is non tender. : No signs and/or symptoms were reported regarding the genitourinary system. EENT: No signs and/or symptoms were reported regarding the EENT system. Derm: No signs and/or symptoms reported regarding the dermatologic system. Musculoskeletal: Range of motion: intact in all extremities, WEAKNESS. 23:00 Reassessment: Patient and/or family updated on plan of care and expected duration. Pain br2 level reassessed. Patient states symptoms have improved. 02/26 01:00 Reassessment: No changes from previously documented assessment. Patient and/or family br2 updated on plan of care and expected duration. Pain level reassessed. Vital Signs: 02/25 20:46 BP 99 / 62; Pulse 112; Resp 24; Temp 96.8(TE); Pulse Ox 83% on R/A; Weight 65.77 kg; cm10 Height 5 ft. 8 in. ; 02/26 00:32 BP 134 / 72; Pulse 105; Resp 20; Pulse Ox 92% on BIPAP; br2 02:36 BP 112 / 57; Pulse 98; Resp 23; Pulse Ox 93% on BIPAP; oe 02:59 BP 126 / 66; Pulse 101; Resp 25; Pulse Ox 94% on BIPAP; br2 02/25 20:46 Body Mass Index 22.05 (65.77 kg, 172.72 cm) cm10 ED Course: 02/25 20:29 Patient arrived in ED. gm2 20:31 Andrea Quiroz PA is PHCP. cp 20:31 Brian Kerr MD is Attending Physician. cp 20:47 Triage completed. cm10 20:47 Arm band placed on right wrist. Patient placed in an exam room, on a stretcher. cm10 21:00 Patient has correct armband on for positive identification. Placed in gown. Bed in low br2 position. Call light in reach. Side rails up X 1. Provided Education on: PLAN OF CARE. 21:00 Inserted saline lock: 20 gauge in left antecubital area, using aseptic technique. Blood br2 collected. Flushed with 10 mL NS. 21:04 Nancy Butler, RN is Primary Nurse. br2 21:10 XRAY Chest (1 view) In Process Unspecified. EDMS 21:11 Radiology exam delayed due to lab results not completed at this time. (BUN/Creatinine). eh 21:23 Blood Culture Adult (2) Sent. br2 21:23 Lactate w/ 2H reflex if indic. Sent. br2 21:23 Ptt, Activated Sent. br2 21:24 Basic Metabolic Panel Sent. br2 21:24 CBC with Diff Sent. br2 21:24 LFT's Sent. br2 21:24 Magnesium Sent. br2 21:24 NT PRO-BNP Sent. br2 21:24 PT-INR Sent. br2 21:24 Troponin HS Sent. br2 21:34 BIPAP Sent. aa10 22:53 CT Chest, Abdomen, Pelvis - W/Contrast In Process Unspecified. EDMS 02/26 00:28 Inserted saline lock: 20 gauge in right forearm, using aseptic technique. br2 01:07 all [facility] at ICU capacity. kmf 01:46 Rosales cath inserted, using sterile technique, 16 Fr., by ne, balloon inflated, to br2 gravity drainage, clamped. urine specimen collected. 02:30 initiated transfer with Perri at [facility] \T\[id number]. pt was auto accepted by Dr Quinton Ceja \T\ [id number]. Admin approval given by Perri Agee \T\ [id number]. Number for nurse to nurse report [phone]. [facility] to transfer pt. 03:00 No provider procedures requiring assistance completed. Patient transferred, IV remains br2 in place. Administered Medications: 02/25 21:34 Drug: DuoNeb Nebulize (2.5 mg - 0.5 mg) 3 ml Nebulizer once Route: Nebulizer; aa10 22:30 Follow up: Response: No adverse reaction br2 21:34 Drug: MethylPrednisoLONE IVP 125 mg IVP once Route: IVP; Site: left antecubital; aa10 22:00 Follow up: Response: No adverse reaction br2 23:13 CANCELLED (Physician Discretion): [id number] mg 150 ml IVPB once over 90 mins cp 23:26 Drug: Piperacillin-Tazobactam IVPB 3.375 grams IVPB once over 60 mins; (mix in NS 100 aa10 mL) Route: IVPB; Infused Over: 60 mins; Site: left antecubital; 02/26 01:00 Follow up: IV Status: Completed infusion; IV Intake: 100ml br2 02/25 23:27 Drug: NS 0.9% IV 500 ml 500 ml IV at 1 bolus once; to be given as a bolus over 60 aa10 minutes Volume: 500 ml; Route: IV; Rate: 1 bolus; Site: left antecubital; 02/26 00:30 Follow up: IV Status: Completed infusion; IV Intake: 1000ml br2 00:42 Drug: NS 0.9% IV 500 ml IV at bolus once; to be given as a bolus over 60 minutes Route: br2 IV; Rate: bolus; Site: right forearm; 01:45 Follow up: IV Status: Completed infusion; IV Intake: 1000ml br2 Medication: 03:01 VIS not applicable for this client. br2 Intake: 00:30 IV: 1000ml; Total: 1000ml. br2 01:00 IV: 100ml; Total: 1100ml. br2 01:45 IV: 1000ml; Total: 2100ml. br2 Output: 01:46 Urine: 400ml (Rosales); Total: 400ml. br2 Outcome: 01:09 ER care complete, transfer ordered by . mario 03:00 Transferred by ground EMS to other acute care facility: [facility] . Transfer form br2 completed. X-rays sent w/ patient. Note: TRANSPORTED BY [facility] 03:01 Condition: stable br2 03:01 Instructed on the need for transfer, 03:20 Patient left the ED. br2 Signatures: Dispatcher [employer] MAURAMS Jerome Perez Corey, PA PA cp Espinosa, Orlando oe Martinez, Clarissa, RN RN cm10 Crystal Garcia 2 Thania Preciado [facility] Nancy Butler RN RN br2 Dolly Petty, RN RN aa10
[2024-02-27 02:05] LABS: Specific Gravity > 1.030 (1.005-1.030); Sqamous Epithelial None Seen /HPF (None Seen); Urine Bacteria None Seen /HPF (<20); Urine Bilirubin NEGATIVE (Negative); Urine Blood 1+ (Negative); Urine Clarity Clear (Clear); Urine Color Light-Yellow (Yellow); Urine Culture Reflex Order NOT NEEDED; Urine Glucose 3+ (Negative); Urine Ketones NEGATIVE (Negative); Urine Microscopic Reflex YN ORDER UMIC; Urine Nitrite NEGATIVE (Negative); Urine Protein NEGATIVE (Negative); Urine RBC 21-50 /HPF (None Seen); Urine Urobilinogen Normal (Normal); Urine WBC <5 /HPF (<5)
[2024-02-27 02:35] LABS: SARS-CoV-2 Antigen CONTROL BLUE LINE VIS/BG OK; SARS-CoV-2 Antigen Rapid Res Negative (Negative)
--- NOTE | 2024-02-28 11:54 | EKG ---
Test Date: 2024-02-26 Test Time: 21:46:31 Clinical Documentation Spec: HU MEASUREMENT RESULTS: Intervals: Rate: 109 IN: 138 QRSD: 72 QT: 324 QTc: 436 [place]: P: 63 IN: 138 QRS: -13 T: 101 INTERPRETIVE STATEMENTS: Sinus tachycardia T wave abnormality, consider lateral ischemia Abnormal ECG Compared to ECG 10/25/2023 22:04:50 T-wave abnormality now present Possible ischemia now present Electronically Signed On 02-28-24 11:53:16 BEHAVIORAL THERAPIST by Saw Corado
[2024-02-29 01:55] VITALS: BP 126/66; TEMP 96.8; O2SAT 94
== END 2024-02-27 03:20 | disposition short-term general hospital (02) ==
LOC: ER 20:25
DX: J18.8 Other pneumonia, unspecified organism (principal); J96.01 Acute respiratory failure with hypoxia; R65.20 Severe sepsis without septic shock; E11.9 Type 2 diabetes mellitus without complications; G80.9 Cerebral palsy, unspecified; Z11.52 Encounter for screening for COVID-19; Z88.2 Allergy status to sulfonamides
CPT/HCPCS: 96365; 96361; 93005; 87040 ×2; 85025; 81001; 80048; 36415; 83735; 85610; 80076; 83605 ×2; 85730; 84484; 83690; 83880; 87807; 87804 ×2; 71260; 74177; 71045; 82805; 51702; 96375; 99285; 96366; 87811; 36600; 94660 ×2; Q9967; J2543; J7613; J7644; J2919; J7040 ×2